=== PATIENT | female | born 1940 | race Caucasian/White ===

== ENCOUNTER → 2018-02-16 13:46 | Outpatient (CLI) | payer MEDICARE, SELFPAY ==
[2018-02-16 16:27] LABS: Absolute Lymphocyte Count 1.84 X10^3/ul (0.83-4.51); Absolute Neutrophil Count 3.1 X10^3/uL (2.0-7.7); Basophil# 0.04 X10^3/uL; Basophil% 0.7 % (0-1); Eosinophil# 0.29 X10^3/uL; Hematocrit 42.6 % (37-47); Hemoglobin 13.9 g/dl (12.0-15.0); Lymphocyte # 1.84 X10^3/ul (4.0); Lymphocyte % 31.5 % (19-41); Mean Corp Hgb Conc 32.6 g/gl (32-36); Mean Corpuscular Hgb 29.4 pg (27.0-32.0); Mean Corpuscular Volume 90.1 fL (81-99); Mean Platelet Vol. 11.1 fl (6.2-12.0); Monocyte# 0.55 X10^3/uL; Monocyte% 9.4 % (0-10); Neutrophil # 3.11 X10^3/uL (2.7-7.7); Neutrophil % 53.2 % (47-70); POSITIVE COUNT NO; POSITIVE DIFFERENTIAL NO; POSITIVE MORPHOLOGY NO; Platelet Count 182 K/mm3 (150-450); RBC Distribution Width CV 13.6 % (11.6-14.6); RBC Distribution Width SD 44.3 fl (35.1-43.9); Red Blood Count 4.73 M/mm3 (4.2-5.4); White Blood Count 5.8 K/mm3 (4.4-11.0)
[2018-02-16 16:47] LABS: ALB/GLOB Ratio 0.8 RATIO (0.9-2.4); AST(SGOT) 46 U/L (15-37); Alanine Aminotransfer ALT/SGPT 37 U/L (13-56); Albumin, Serum 3.6 g/dL (3.2-5.0); Alkaline Phosphatase 111 U/L (45-117); Anion Gap 9 (5-15); BUN 14 mg/dL (7-18); BUN/Creat Ratio 18.3 RATIO (10-20); Calcium,Total 9.1 mg/dL (8.5-10.1); Chloride 105 mmol/L (98-107); Creatinine, Serum 0.76 mg/dL (0.55-1.02); EST Glomerular Filtration Rate 78 mL/min (>60); Est Glom Filt Rate - Afr Amer 94 mL/min (>60); Globulin 4.8 g/dL (2.2-4.2); Glucose 123 mg/dL (74-106); Potassium 3.7 mmol/L (3.5-5.1); Protein, Total 8.4 g/dL (6.4-8.2); Sodium Level 142 mmol/L (136-145); Thyroid Stim Hormone (TSH) 2.74 uIU/mL (0.358-3.74)
== END ==
PROVIDERS: Family Provider Family Medicine Geriatric Medicine; PCP Family Medicine Geriatric Medicine; Visit Provider Family Medicine Geriatric Medicine
DX: I10 Essential (primary) hypertension (principal); E55.9 Vitamin D deficiency, unspecified
CPT/HCPCS: 36415; 80053; 82306; 84443; 85025

== ENCOUNTER → 2018-03-13 16:29 | Outpatient (CLI) | payer MEDICARE, SELFPAY ==
--- NOTE | 2018-03-13 16:33 | RAD_ITS ---
STUDY: X-RAY - PELVIS AND RIGHT HIP REASON FOR EXAM: Female, 78 years old. Right hip pain. TECHNIQUE: Radiological exam, hip, unilateral, with pelvis when performed; 2 or 3 views. COMPARISON: None. FINDINGS: Moderate amount of fecal material is seen in the colon. Normal visualized soft tissue structures. Normal bilateral iliac wings, sacroiliac joints and visualized sacrum. Normal bilateral superior and inferior pubic rami. There are degenerative changes of the pubic symphysis with articular narrowing and sclerosis. Normal bilateral ischial tuberosities. Normal visualized femoral head. There is osteoarthritic spur formation of the acetabular rim. There is moderate articular joint space narrowing of the hip. RAD/Hip 2-3 Views with Pelvis IMPRESSION: Degenerative changes of both hip joints worse on the right side. Electronically Signed: Avinash Brito MD at 15:06 EDT Tel [phone], Service support ,
--- NOTE | 2018-03-13 16:33 | RAD_ITS ---
STUDY: X-RAY - RIGHT KNEE REASON FOR EXAM: Female, 78 years old. Right knee pain. TECHNIQUE: 4 view(s) of the knee. COMPARISON: None. FINDINGS: Normal visualized distal femur. Normal visualized proximal tibia and fibula. Normal proximal tibiofibular articulation. Normal medial femorotibial compartment. Normal lateral femorotibial compartment. Normal patellofemoral articulation. There are atherosclerotic calcifications. RAD/Knee 4 or More Views IMPRESSION: No acute abnormality is seen. Electronically Signed: Avinash Brito MD at 15:13 EDT Tel [phone], Service support ,
== END ==
PROVIDERS: Family Provider Family Medicine Geriatric Medicine; PCP Family Medicine Geriatric Medicine; Visit Provider Family Medicine Geriatric Medicine
DX: M25.561 Pain in right knee (principal); M25.551 Pain in right hip
CPT/HCPCS: 73502; 73564

== ENCOUNTER → 2018-05-22 13:39 | Outpatient (CLI) | payer MEDICARE, MEDICAID, SELFPAY ==
--- NOTE | 2018-05-22 13:54 | RAD_ITS ---
STUDY: X-RAY - CERVICAL SPINE REASON FOR EXAM: Female, 78 years old. Chronic neck pain TECHNIQUE: 3 view(s) of the cervical spine were obtained. COMPARISON: None FINDINGS: Normal anterior atlantoaxial articulation. Normal odontoid process. Normal cervical lordosis. There is mild endplate spondylosis of C4-C6. Normal disc space heights There are bilateral hypertrophic degenerative facet changes throughout the mid and lower cervical region. The soft tissue structures are unremarkable. RAD/Cerv Spine 2 or 3 Views IMPRESSION: Cervical degenerative changes as detailed above. Electronically Signed: Man Shepherd MD at 21:18 EDT , Service support ,
== END ==
PROVIDERS: Family Provider Family Medicine Geriatric Medicine; PCP Family Medicine Geriatric Medicine; Visit Provider Family Medicine Geriatric Medicine
DX: M54.2 Cervicalgia (principal)
CPT/HCPCS: 72040

== ENCOUNTER → 2018-05-29 12:13 | Outpatient (CLI) | payer MEDICARE, MEDICAID, SELFPAY ==
--- NOTE | 2018-05-29 12:15 | CDU_ITS ---
Reason For Study: BRUIT Rt. Velocities/BP Lt. Velocities/BP Prox CCA 39/9 cm/sec. Prox CCA 26/6 cm/sec. Mid CCA 42/12 cm/sec. Mid CCA 40/12 cm/sec. Dist CCA 36/10 cm/sec. Dist CCA 41/13 cm/sec. Prox ICA 62/23 cm/sec. Prox ICA 74/24 cm/sec. Mid ICA 83/22 cm/sec. Mid ICA 72/27 cm/sec. Dist ICA 45/12 cm/sec. Dist ICA 57/21 cm/sec. Rt. ICA/CCA = 1.95. Lt. ICA/CCA = 1.87. Prox ECA 59/13 cm/sec. Prox ECA 78/13 cm/sec. Rt. Vert. 28/9 cm/sec. Lt. Vert. 30/11 cm/sec. Right Extracranial There is heterogeneous, smooth atherosclerotic plaque noted in the right common carotid artery. There is homogeneous, irregular atherosclerotic plaque noted in the right common carotid artery. There is heterogeneous, irregular atherosclerotic plaque noted in the right internal carotid artery. There is heterogeneous, irregular atherosclerotic plaque noted in the right external carotid artery. Antegrade flow is noted in the right vertebral artery. There is heterogeneous, irregular atherosclerotic plaque noted in the right bulb. Left Extracranial There is heterogeneous, smooth atherosclerotic plaque noted in the left common carotid artery. There is heterogeneous, irregular atherosclerotic plaque noted in the left common carotid artery. There is heterogeneous, irregular atherosclerotic plaque noted in the left internal carotid artery. There is heterogeneous, irregular atherosclerotic plaque noted in the left external carotid artery. Antegrade flow is noted in the left vertebral artery. There is heterogeneous, irregular atherosclerotic plaque noted in the left bulb. Procedure Carotid Duplex [id number]. Exam performed in department. Interpretation Summary Mild (<50%) stenosis right extracranial internal carotid. Mild (<50%) stenosis left extracranial internal carotid. Flow within the vertebral arteries is antegrade bilaterally. Ordering Physician: Juan Broussard Referring Physician: Juan Broussard Chi Performed By: Beatriz Bailey, NICOLAS, RVT
== END ==
PROVIDERS: Family Provider Family Medicine Geriatric Medicine; PCP Family Medicine Geriatric Medicine; Visit Provider Family Medicine Geriatric Medicine
DX: R09.89 Other specified symptoms and signs involving the circulatory and respiratory systems (principal)
CPT/HCPCS: 93880

== ENCOUNTER 2018-06-07 17:03 | Inpatient (IN) | payer MEDICARE, MEDICAID, SELFPAY ==
[2018-06-07] VITALS (11 sets, daily range): BP systolic 155–179; BP diastolic 88–105; PULSE 65–82; RESP 15–18; TEMP 36.1–36.7; O2SAT 94–99; BMI 28.2; BMI 28.1
[2018-06-07 17:26] LABS: Bedside Glucose 174 mg/dL (70-110)
--- NOTE | 2018-06-07 17:30 | EKG12_ITS ---
Test Reason : NEURO Blood Pressure : / mmHG Vent. Rate : 076 BPM Atrial Rate : 076 BPM P-R Int : 190 ms QRS Dur : 074 ms QT Int : 422 ms P-R-T Axes : 052 -27 031 degrees QTc Int : 474 ms Normal sinus rhythm Leftward axis Inferior WI, age undetermined, cannot be excluded Confirmed by DUC NERI, YVROSE ([id number]), editorial specialist BOBBY IBARRA ([id number]) on 06/12/2018 1:51:17 PM Referred By: MODESTA Confirmed By:YVROSE XAVIER MD
--- NOTE | 2018-06-07 17:30 | CT_ITS ---
STUDY: CT BRAIN WITHOUT CONTRAST REASON FOR EXAM: Female, 78 years old. Slurred speech, right-sided weakness RADIATION DOSAGE (If Supplied By Facility): CTDIvol = ( 60.81 ) mGy, DLP = ( 1067.08 ) mGycm TECHNIQUE: Transaxial CT imaging of the brain was performed without administration of intravenous contrast material. Individualized dose optimization techniques were used for this CT. COMPARISON: Previous study of 10/25/2017 FINDINGS: Normal soft tissue structures. Normal calvarium. There is mild cerebral atrophy with widening of the extra-axial spaces and ventricular dilatation. There are areas of decreased attenuation within the white matter tracts of the supratentorial brain, consistent with microvascular disease changes. There is an old lacunar infarct of the right thalamus.. There are bilateral punctate basal ganglia calcifications which are usually idiopathic in an elderly individual. Normal brainstem. Normal cerebellum. There is no intracranial hemorrhage. There are no findings of an acute ischemic infarction. Normal visualized paranasal sinuses. CT/Brain/Head without Contrast IMPRESSION: Chronic involutional changes of the brain. Old lacunar infarct of the right thalamus. There is no significant change from the previous study. Electronically Signed: Man Shepherd MD at 18:20 EDT , Service support ,
--- NOTE | 2018-06-07 17:35 | ED.VISSUMM ---
- ER Visit Summary Date of Service: 06/07/18 Chief Complaint: Right arm and leg weakness with slightly more slurred speech History of Present Illness: The patient is a 78 F prior history of large right-sided stroke affecting both the right arm and right leg and speech approximately last October. Patient states she was doing well in her normal state of health and this morning has increased weakness in her right arm and leg and daughter thinks her speech may be slightly worse. She denies any visual change. She has had a headache most of yesterday. Currently is on Plavix and aspirin. Denies any falls or head trauma. Patient states she lives alone. Other than the headache she had no new or different neurological symptoms yesterday. From her prior stroke she has had chronic speech difficulty, right arm and right leg weakness but she rehabbed and they were doing much better. She states they are worse today. Her last known well time was around 11 PM last night. Physical Examination: Well appearing older female. Comes in by her daughter. Vital signs are stable afebrile. Blood pressure 139/96. She does not look septic or toxic. H EENT exam given round reactive light. No facial droop. Mildly slurred speech but easily understood. Neck nontender. Lungs clear to auscultation bilaterally. Heart regular rhythm rate about 80. Abdomen is soft and nontender. Normal bowel sounds no peritoneal signs. Left upper and left lower extremities are unremarkable neurovascular intact with 5 out of 5 motor strength and normal sensation. Normal range of motion. Her right upper extremity is about 3 out of 5 motor strength. Her right leg is about a 3 out of 5 motor strength. Normal sensation. She has a drift in both the right upper and right lower extremity. And decreased dexterity. Neurologically she is awake and alert. Follows commands. She has slurred speech. Weakness in the both right upper and right lower extremity. And decreased fine motor movements. Her NIH score is a 7. She has had a prior stroke and some of this is from the prior stroke. Test Results: Chest x-ray showed chronic changes. CT of the brain without contrast showed no acute process. Prior CVA. No acute bleed. No acute CVA. Both were read by the radiologist reviewed by me. EKG sinus rhythm rate is 76 no acute abnormality. White count of 10. H&H 1443. Electrolytes unremarkable glucose was elevated 185. Normal gap. PT PTT INR unremarkable. Troponin normal. Emergency Department Course and Treatment: Stroke evaluation. She is not in the TPA window. She will be admitted for further evaluation and further workup. Treatment Plan: Repeat exam the patient is doing well at 1830. No change and no worsening of her symptoms. We went over all her test results with her and her daughter. She will be admitted to the hospitalist for further evaluation. Disposition: Admission Impression: Recurrent and worsening right upper and lower extremity weakness History of a large prior right sided stroke Hyperglycemia This note was generated with [employer] dictation software. It may contain incorrect words, spelling, and punctuation that were not noted in review of the chart prior to signing ED Disposition - Plan for ED Patient: Chief Complaint: Neuro S/Sx Referrals: Juan Broussard Chi, MD [Primary Care Provider] -
--- NOTE | 2018-06-07 17:39 | ED.DCSUM_ITS ---
- ER Visit Summary Date of Service: 06/07/18 Chief Complaint: Right arm and leg weakness with slightly more slurred speech History of Present Illness: The patient is a 78 F prior history of large right- sided stroke affecting both the right arm and right leg and speech approximately last October. Patient states she was doing well in her normal state of health and this morning has increased weakness in her right arm and leg and daughter thinks her speech may be slightly worse. She denies any visual change. She has had a headache most of yesterday. Currently is on Plavix and aspirin. Denies any falls or head trauma. Patient states she lives alone. Other than the headache she had no new or different neurological symptoms yesterday. From her prior stroke she has had chronic speech difficulty , right arm and right leg weakness but she rehabbed and they were doing much better. She states they are worse today. Her last known well time was around 11 PM last night. Physical Examination: Well appearing older female. Comes in by her daughter. Vital signs are stable afebrile. Blood pressure 139/96. She does not look septic or toxic. H EENT exam given round reactive light. No facial droop. Mildly slurred speech but easily understood. Neck nontender. Lungs clear to auscultation bilaterally. Heart regular rhythm rate about 80. Abdomen is soft and nontender. Normal bowel sounds no peritoneal signs. Left upper and left lower extremities are unremarkable neurovascular intact with 5 out of 5 motor strength and normal sensation. Normal range of motion. Her right upper extremity is about 3 out of 5 motor strength. Her right leg is about a 3 out of 5 motor strength. Normal sensation. She has a drift in both the right upper and right lower extremity. And decreased dexterity. Neurologically she is awake and alert. Follows commands. She has slurred speech. Weakness in the both right upper and right lower extremity. And decreased fine motor movements. Her NIH score is a 7. She has had a prior stroke and some of this is from the prior stroke. Test Results: Chest x-ray showed chronic changes. CT of the brain without contrast showed no acute process. Prior CVA. No acute bleed. No acute CVA. Both were read by the radiologist reviewed by me. EKG sinus rhythm rate is 76 no acute abnormality. White count of 10. H&H 1443. Electrolytes unremarkable glucose was elevated 185. Normal gap. PT PTT INR unremarkable. Troponin normal. Emergency Department Course and Treatment: Stroke evaluation. She is not in the TPA window. She will be admitted for further evaluation and further workup. Treatment Plan: Repeat exam the patient is doing well at 1830. No change and no worsening of her symptoms. We went over all her test results with her and her daughter. She will be admitted to the hospitalist for further evaluation. Disposition: Admission Impression: Recurrent and worsening right upper and lower extremity weakness History of a large prior right sided stroke Hyperglycemia This note was generated with [employer] dictation software. It may contain incorrect words, spelling, and punctuation that were not noted in review of the chart prior to signing ED Disposition - Plan for ED Patient: Chief Complaint: Neuro S/Sx Referrals: Juan Broussard Chi, MD [Primary Care Provider] -
[2018-06-07 17:43] LABS: Absolute Lymphocyte Count 2.25 X10^3/ul (0.83-4.51); Basophil# 0.02 X10^3/uL; Basophil% 0.2 % (0-1); Eosinophil# 0.13 X10^3/uL; Eosinophils% 1.3 % (0-5); Hematocrit 43.5 % (37-47); Hemoglobin 14.1 g/dl (12.0-15.0); Lymphocyte # 2.25 X10^3/ul (4.0); Lymphocyte % 22.2 % (19-41); Mean Corp Hgb Conc 32.4 g/gl (32-36); Mean Corpuscular Hgb 29.5 pg (27.0-32.0); Mean Platelet Vol. 10.6 fl (6.2-12.0); Monocyte# 0.74 X10^3/uL; Monocyte% 7.3 % (0-10); Neutrophil # 6.98 X10^3/uL (2.7-7.7); Neutrophil % 68.8 % (47-70); Platelet Count 149 K/mm3 (150-450); RBC Distribution Width CV 14.7 % (11.6-14.6); RBC Distribution Width SD 48.6 fl (35.1-43.9); Red Blood Count 4.78 M/mm3 (4.2-5.4); White Blood Count 10.1 K/mm3 (4.4-11.0)
[2018-06-07] MEDS: 0.9% Normal Saline 1,000 ML 999 ML IV (17:48)
[2018-06-07 17:53] LABS: POSITIVE COUNT NO; POSITIVE DIFFERENTIAL NO; POSITIVE MORPHOLOGY NO
[2018-06-07 17:59] LABS: Anion Gap 6 (5-15); BUN 12 mg/dL (7-18); BUN/Creat Ratio 17.1 RATIO (10-20); Calcium,Total 8.7 mg/dL (8.5-10.1); Chloride 106 mmol/L (98-107); EST Glomerular Filtration Rate 86 mL/min (>60); Est Glom Filt Rate - Afr Amer 104 mL/min (>60); Estimated Creatinine Clearance 40.68 ml/min; Glucose 185 mg/dL (74-106); Potassium 3.5 mmol/L (3.5-5.1); Sodium Level 141 mmol/L (136-145)
[2018-06-07 18:00] LABS: Prothrombin Time (Protime)PT. 12.9 SECONDS (11.7-14.9)
--- NOTE | 2018-06-07 18:00 | RAD_ITS ---
STUDY: X-RAY CHEST REASON FOR EXAM: Female, 78 years old. Right-sided weakness TECHNIQUE: Single AP portable view of the chest. COMPARISON: Previous study of 10/25/2017 FINDINGS: labor relations or personnel negotiator leads are present. The lungs are clear and expanded. There is no demonstrated pleural abnormality. There is borderline cardiomegaly. Normal mediastinum and анна. Normal visualized pulmonary arteries. There are calcified plaques of the aortic arch. Normal visualized thoracic spine. Normal visualized ribs, clavicles, and shoulders. There is no demonstrated abnormality of the visualized soft tissue structures of the upper abdomen. RAD/Chest 1 View IMPRESSION: Borderline heart size. Calcified plaques of the aortic arch. No acute cardiopulmonary disease process is seen. Chest findings are similar to the previous study. Electronically Signed: Man Shepherd MD at 18:22 EDT , Service support ,
[2018-06-07 18:01] LABS: Partial Thromboplast Time 33.2 Seconds (24.1-36.2)
--- NOTE | 2018-06-07 18:34 | PCM.HP.STD ---
Problem List (1) Acute CVA (cerebrovascular accident) Status: Acute (2) Hyperglycemia Status: Acute (3) Thrombocytopenia Status: Acute (4) History of CVA (cerebrovascular accident) Status: Chronic (5) HTN (hypertension) Status: Chronic Qualifiers: Hypertension type: essential hypertension Qualified Code(s): I10 - Essential (primary) hypertension (6) HLD (hyperlipidemia) Status: Chronic Qualifiers: Hyperlipidemia type: unspecified Qualified Code(s): E78.5 - Hyperlipidemia, unspecified (7) GERD (gastroesophageal reflux disease) Status: Chronic Qualifiers: Esophagitis presence: esophagitis presence not specified Qualified Code(s): K21.9 - Gastro-esophageal reflux disease without esophagitis History of Present Illness Date of Admission: 06/07/18 Chief Complaint: R hemiplegia, aphasia The patient is a 78 y/o F w/ PMHx: HTN, HLD, GERD, Recent CVA 10/2017 who presents to the [facility] ED on 06/07/18 with history of onset slurred speech per Daughter report with last known normal 06/06/18 2300 in addition to patient subjective change in her R sided hemiplegia, worsened per her report from her baseline with onset at 7 AM upon awakening. She notes that sensation remains intact. Normally at home she is able to take care of herself and uses a walker despite the mild right-sided hemiplegia. Daughter notes the mildly change speech is most notable when she gets anxious and was more concerned with these changes otherwise if she is calm she appears at baseline she notes. NIH 7 but difficult assessment as prior notable CVA. Patient does state that she recently had acute on chronic lumbar back pain and was evaluated by her primary care physician and administered 3 separate medications possibly including a steroid but family is unsure and we are awaiting confirmation once family returns home. In the ED work-up noted afebrile, heart rate 82, BP 166/92, respiratory rate 16, 96% on room air, CBC with WBC 10.1, hemoglobin 14.1, platelet 149 without left shift, unremarkable coags, BMP remarkable for glucose 185, troponin less than 0.015, chest x-ray with chronic changes including mild cardiomegaly otherwise no acute findings, CT brain with chronic involutional changes, old lacunar infarct of the right thalamic, no significant change from prior study. Of note recent 7/23/18 Carotid US w/ mild less than 50% stenosis right extracranial internal carotid, mild less than 50% stenosis left extracranial internal carotid, flow within the vertebral arteries antegrade bilaterally. In the ED patient administered normal saline. Past Medical History Past Medical History (Chronic Problems): Chronic Problems History of CVA (cerebrovascular accident) (Chronic) HTN (hypertension) (Chronic) HLD (hyperlipidemia) (Chronic) GERD (gastroesophageal reflux disease) (Chronic) Allergies latex Allergy (Verified 06/07/18 17:03) Swelling Home Medications: Ambulatory Orders Medication Instructions Recorded Aspirin E.C. 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 Tobacco Use: Non-smoker Alcohol: None Drugs: None - *Family History Maternal History Items: - - Notable maternal family history of diabetes. Paternal History Items: - - Notable paternal family history of heart disease, [place], diabetes. Review of Systems Constitutional: Reports: Fatigue. Denies: Chills, Fever, Weight Change HEENT: Denies: Head Aches, Sinus Congestion, Sinus Drainage Cardiovascular: Denies: Chest Pain, Palpitations Respiratory: Denies: Cough, Shortness of breath at rest, Sputum production Gastrointestinal: Denies: Abdominal Pain, Nausea, Vomiting Genitourinary: Denies: Dysuria Musculoskeletal: Reports: Back Pain. Denies: Joint Pain, Joint Tenderness Skin: Denies: Rash, Wounds Neurological: Reports: Balance problems, Slurred speech, Focal weakness. Denies: Numbness, Tingling Psychiatric: Denies: Anxiety, Depression, Homicidal Ideations, Suicidal Ideations Hematologic/ Lymphatic: Reports: Easy Bruising, Easy Bleeding VTE Information - Inpt Only VTE Present on Admission: No VTE Mechan Device Prophylaxis: SCD's VTE Pharm Prophylaxis ordered?: Yes Patient Problems: Active and Suspected Problems Acute CVA (cerebrovascular accident) (Acute) Hyperglycemia (Acute) Thrombocytopenia (Acute) Subjective: Seated upright in the ED bed, no acute distress, notes similar since initial presentation with stable NIH score. Objective: Physical Examination: General: awake, alert, oriented x 3 and cooperative, seated upright in the ED bed in no apparent distress. Skin: normal color, turgor, no icterus, cyanosis. HEENT: AT/NC, EOMI, PERRLA, mildly dry MM, no carotid bruits or JVD noted. Lungs: CTA bilaterally, moderate effort, mild decrease BL bases, no rales, ronchi or wheezing. Heart: Regular rate and rhythm; no gallop, rub audible. Abdomen: soft, overweight, NTTP, ND, normal BS, no HSM. Extremities: no cyanosis, clubbing, or edema, minimal hair growth BL LE. Neurological: patient awake, alert, oriented x 3; cognitive function intact; pupils equally reactive to light and accomodation; cranial nerves II-XII grossly normal, moving all 4 extremities; however, worsened R hemiplegia from prior baseline 2-3/5, sensation intact, FTN, HTN impaired R sided, upgoing toe R side, strength accordingly severely globally decreased, speech currently appears baseline but family notes when pressed worsened aphasia noted. Psychiatric: affect appears normal, no acute evidence of depressive or anxiety feelings. - Physical Exam Vital Signs Temp Pulse Resp BP Pulse Ox 97.0 F L 70 16 165/98 H 96 06/07/18 17:04 06/07/18 18:19 06/07/18 18:19 06/07/18 18:19 06/07/18 18:19 Oxygen Delivery Method Room Air Weight: 164 lb 7.437 oz Body Mass Index (BMI) 28.2 Finger Stick Blood Glucose 174 Laboratory Tests Past 24 Hrs 06/07/18 06/07/18 06/07/18 15:20 15:20 15:20 WBC 10.1 RBC 4.78 Hgb 14.1 Hct 43.5 MCV 91.0 MCH 29.5 MCHC 32.4 RDW 14.7 H RDW Differential 48.6 H Plt Count 149 L MPV 10.6 Immature Gran % (Auto) 0.200 Neut % (Auto) 68.8 Lymph % (Auto) 22.2 Cowley % (Auto) 7.3 Eos % (Auto) 1.3 Baso % (Auto) 0.2 Absolute Neuts (auto) 7.0 Absolute Lymphs (auto) 2.25 Total Counted Not Reportable PT 12.9 INR 1.0 APTT 33.2 Sodium 141 Potassium 3.5 Chloride 106 Carbon Dioxide 29.0 Anion Gap 6 BUN 12 Creatinine 0.70 Estim Creat Clear Calc 40.68 Est GFR (MDRD) Af Amer 104 Est GFR (MDRD) Non-Af 86 BUN/Creatinine Ratio 17.1 Glucose 185 H Calcium 8.7 Troponin I < 0.015 POC Glucose 06/07/18 17:22 POC Glucose 174 H Assessment/Plan All Active Problems Acute CVA (cerebrovascular accident) (Acute) Hyperglycemia (Acute) Thrombocytopenia (Acute) The patient is a 78 y/o F w/ PMHx: HTN, HLD, GERD, Recent CVA 10/2017 who presents to the [facility] ED on 06/07/18 with history of onset slurred speech per Daughter report with last known normal 06/06/18 2300 in addition to patient subjective change in her R sided hemiplegia, worsened per her report from her baseline. NIH 7 but difficult assessment as prior notable CVA. (1) Slurred Speech and Worsened R Hemiplegia concerning for Acute CVA w/ Recent 10/2017 R Thalamic CVA (Deficits RUE and RLE hemiplegia, aphasia): In the ED work-up included CBC with WBC 10.1, hemoglobin 14.1, platelet 149 without left shift, unremarkable coags, BMP remarkable for glucose 185, troponin less than 0.015, chest x-ray with chronic changes including mild cardiomegaly otherwise no acute findings, CT brain with chronic involutional changes, old lacunar infarct of the right thalamic, no significant change from prior study. Of note recent 05/29/18 Carotid US w/ mild less than 50% stenosis right extracranial internal carotid, mild less than 50% stenosis left extracranial internal carotid, flow within the vertebral arteries antegrade bilaterally. Will admit to PCU, will obtain MRI Brain, MRA Head, defer neck given recent carotid US, no recent ECHO noted in [employer] thus will obtain, PT/OT/Speech/Nutrition evaluation per protocol. Will consult Neurology for evaluation. Will allow permissive HTN, maintain on asa and plavix dual therapy pending Neurology evaluation for consideration of transition of agent, consider HM upon discharge, continue statin w/ AM FLP, fall precautions. Mag, TSH pending. (2) Hyperglycemia, Concerning for New Onset Diabetes Mellitus type II although recent possible steroid intake: Admission Glucose 185, HgbA1c pending, in interim ADA diet, accu checks w/ ISS, nutrition consulted for education and teaching. If notable elevation of BS, add levemir low dose BID. (3) Thrombocytopenia: Admission Plt 149, maintain on asa, plavix, trend CBC. (4) Hypertension: Permissive, not on regimen, if remains above goal after appropriate timeline, will initiate regimen. PRN labetalol. (5) Hyperlipidemia: Change to high dose statin, FLP in AM. (6) GERD: Famotidine. (7) DVT Prophylaxis: SCDs, lovenox. (8) CODE status: Discussed CODE status at length including difference between FULL code, DNR-CCA and DNR-CC status. Following discussions about the differences in these status, requested DNR-CCA, no intubation status. She has HCPOA Daughter and Living will in place. Advanced Care Planning Face to Face Time: 17 minutes. Code Visit Inpatient E&M: 93873 Init Hosp L3 Procedures: 95041 Advncd Care Plan 30 Min
--- NOTE | 2018-06-07 18:51 | HP.PCM_ITS ---
Problem List (1) Acute CVA (cerebrovascular accident) Status: Acute (2) Hyperglycemia Status: Acute (3) Thrombocytopenia Status: Acute (4) History of CVA (cerebrovascular accident) Status: Chronic (5) HTN (hypertension) Status: Chronic Qualifiers: Hypertension type: essential hypertension Qualified Code(s): I10 - Essential (primary) hypertension (6) HLD (hyperlipidemia) Status: Chronic Qualifiers: Hyperlipidemia type: unspecified Qualified Code(s): E78.5 - Hyperlipidemia , unspecified (7) GERD (gastroesophageal reflux disease) Status: Chronic Qualifiers: Esophagitis presence: esophagitis presence not specified Qualified Code(s) : K21.9 - Gastro-esophageal reflux disease without esophagitis History of Present Illness Date of Admission: 06/07/18 Chief Complaint: R hemiplegia, aphasia The patient is a 78 y/o F w/ PMHx: HTN, HLD, GERD, Recent CVA 10/2017 who presents to the [facility] ED on 06/07/18 with history of onset slurred speech per Daughter report with last known normal 06/06/18 2300 in addition to patient subjective change in her R sided hemiplegia, worsened per her report from her baseline with onset at 7 AM upon awakening. She notes that sensation remains intact. Normally at home she is able to take care of herself and uses a walker despite the mild right-sided hemiplegia. Daughter notes the mildly change speech is most notable when she gets anxious and was more concerned with these changes otherwise if she is calm she appears at baseline she notes. NIH 7 but difficult assessment as prior notable CVA. Patient does state that she recently had acute on chronic lumbar back pain and was evaluated by her primary care physician and administered 3 separate medications possibly including a steroid but family is unsure and we are awaiting confirmation once family returns home. In the ED work-up noted afebrile, heart rate 82, BP 166/92, respiratory rate 16, 96% on room air, CBC with WBC 10.1, hemoglobin 14.1, platelet 149 without left shift, unremarkable coags, BMP remarkable for glucose 185, troponin less than 0.015, chest x-ray with chronic changes including mild cardiomegaly otherwise no acute findings, CT brain with chronic involutional changes, old lacunar infarct of the right thalamic, no significant change from prior study. Of note recent 7/23/18 Carotid US w/ mild less than 50% stenosis right extracranial internal carotid, mild less than 50% stenosis left extracranial internal carotid, flow within the vertebral arteries antegrade bilaterally. In the ED patient administered normal saline. Past Medical History Past Medical History (Chronic Problems): Chronic Problems History of CVA (cerebrovascular accident) (Chronic) HTN (hypertension) (Chronic) HLD (hyperlipidemia) (Chronic) GERD (gastroesophageal reflux disease) (Chronic) Allergies latex Allergy (Verified 06/07/18 17:03) Swelling Home Medications: Ambulatory Orders Medication Instructions Recorded Aspirin E.C. [Ecotrin] 81 mg PO DAILY@0800 06/07/18 Atorvastatin Calcium 40 mg PO QHS 06/07/18 Clopidogrel Bisulfate [Plavix] 75 mg PO DAILY 06/07/18 Ibuprofen 400 mg PO PRN PRN 06/07/18 Lactose-Reduced Food [Ensure High 237 ml PO DAILY 06/07/18 Protein] Mirtazapine [Remeron] 15 mg PO QHS 06/07/18 Omeprazole Magnesium [Prilosec Otc] 20 mg PO DAILY 06/07/18 Super B Complex 1 tab PO DAILY 06/07/18 Surgical History: appendectomy, cholecystectomy, hysterectomy, - - x 2 Psychiatric History: No pertinent psych hx HEEL SEAT FITTER History: No pertinent HEEL SEAT FITTER history Lives: Alone Smoking Status: Former smoker - Smoked 2 pack per day since she was 15 years old , quit 10/2017 after her CVA. Tobacco Use: Non-smoker Alcohol: None Drugs: None - *Family History Maternal History Items: - - Notable maternal family history of diabetes. Paternal History Items: - - Notable paternal family history of heart disease, [place], diabetes. Review of Systems Constitutional: Reports: Fatigue. Denies: Chills, Fever, Weight Change HEENT: Denies: Head Aches, Sinus Congestion, Sinus Drainage Cardiovascular: Denies: Chest Pain, Palpitations Respiratory: Denies: Cough, Shortness of breath at rest, Sputum production Gastrointestinal: Denies: Abdominal Pain, Nausea, Vomiting Genitourinary: Denies: Dysuria Musculoskeletal: Reports: Back Pain. Denies: Joint Pain, Joint Tenderness Skin: Denies: Rash, Wounds Neurological: Reports: Balance problems, Slurred speech, Focal weakness. Denies : Numbness, Tingling Psychiatric: Denies: Anxiety, Depression, Homicidal Ideations, Suicidal Ideations Hematologic/ Lymphatic: Reports: Easy Bruising, Easy Bleeding VTE Information - Inpt Only VTE Present on Admission: No VTE Mechan Device Prophylaxis: SCD's VTE Pharm Prophylaxis ordered?: Yes Patient Problems: Active and Suspected Problems Acute CVA (cerebrovascular accident) (Acute) Hyperglycemia (Acute) Thrombocytopenia (Acute) Subjective: Seated upright in the ED bed, no acute distress, notes similar since initial presentation with stable NIH score. Objective: Physical Examination: General: awake, alert, oriented x 3 and cooperative, seated upright in the ED bed in no apparent distress. Skin: normal color, turgor, no icterus, cyanosis. HEENT: AT/NC, EOMI, PERRLA, mildly dry MM, no carotid bruits or JVD noted. Lungs: CTA bilaterally, moderate effort, mild decrease BL bases, no rales, ronchi or wheezing. Heart: Regular rate and rhythm; no gallop, rub audible. Abdomen: soft, overweight, NTTP, ND, normal BS, no HSM. Extremities: no cyanosis, clubbing, or edema, minimal hair growth BL LE. Neurological: patient awake, alert, oriented x 3; cognitive function intact; pupils equally reactive to light and accomodation; cranial nerves II-XII grossly normal, moving all 4 extremities; however, worsened R hemiplegia from prior baseline 2-3/5, sensation intact, FTN, HTN impaired R sided, upgoing toe R side, strength accordingly severely globally decreased, speech currently appears baseline but family notes when pressed worsened aphasia noted. Psychiatric: affect appears normal, no acute evidence of depressive or anxiety feelings. - Physical Exam Vital Signs Temp Pulse Resp BP Pulse Ox 97.0 F L 70 16 165/98 H 96 06/07/18 17:04 06/07/18 18:19 06/07/18 18:19 06/07/18 18:19 06/07/18 18:19 Oxygen Delivery Method Room Air Weight: 164 lb 7.437 oz Body Mass Index (BMI) 28.2 Finger Stick Blood Glucose 174 Laboratory Tests Past 24 Hrs 06/07/18 06/07/18 06/07/18 15:20 15:20 15:20 WBC 10.1 RBC 4.78 Hgb 14.1 Hct 43.5 MCV 91.0 MCH 29.5 MCHC 32.4 RDW 14.7 H RDW Differential 48.6 H Plt Count 149 L MPV 10.6 Immature Gran % (Auto) 0.200 Neut % (Auto) 68.8 Lymph % (Auto) 22.2 [place] % (Auto) 7.3 Eos % (Auto) 1.3 Baso % (Auto) 0.2 Absolute Neuts (auto) 7.0 Absolute Lymphs (auto) 2.25 Total Counted Not Reportable PT 12.9 INR 1.0 APTT 33.2 Sodium 141 Potassium 3.5 Chloride 106 Carbon Dioxide 29.0 Anion Gap 6 BUN 12 Creatinine 0.70 Estim Creat Clear Calc 40.68 Est GFR (MDRD) Af Amer 104 Est GFR (MDRD) Non-Af 86 BUN/Creatinine Ratio 17.1 Glucose 185 H Calcium 8.7 Troponin I < 0.015 POC Glucose 06/07/18 17:22 POC Glucose 174 H Assessment/Plan All Active Problems Acute CVA (cerebrovascular accident) (Acute) Hyperglycemia (Acute) Thrombocytopenia (Acute) The patient is a 78 y/o F w/ PMHx: HTN, HLD, GERD, Recent CVA 10/2017 who presents to the [facility] ED on 06/07/18 with history of onset slurred speech per Daughter report with last known normal 06/06/18 2300 in addition to patient subjective change in her R sided hemiplegia, worsened per her report from her baseline. NIH 7 but difficult assessment as prior notable CVA. (1) Slurred Speech and Worsened R Hemiplegia concerning for Acute CVA w/ Recent 10/2017 R Thalamic CVA (Deficits RUE and RLE hemiplegia, aphasia): In the ED work-up included CBC with WBC 10.1, hemoglobin 14.1, platelet 149 without left shift, unremarkable coags, BMP remarkable for glucose 185, troponin less than 0.015, chest x-ray with chronic changes including mild cardiomegaly otherwise no acute findings, CT brain with chronic involutional changes, old lacunar infarct of the right thalamic, no significant change from prior study. Of note recent 05/29/18 Carotid US w/ mild less than 50% stenosis right extracranial internal carotid, mild less than 50% stenosis left extracranial internal carotid , flow within the vertebral arteries antegrade bilaterally. Will admit to PCU, will obtain MRI Brain, MRA Head, defer neck given recent carotid US, no recent ECHO noted in Blurr thus will obtain, PT/OT/Speech/Nutrition evaluation per protocol. Will consult Neurology for evaluation. Will allow permissive HTN, maintain on asa and plavix dual therapy pending Neurology evaluation for consideration of transition of agent, consider HM upon discharge, continue statin w/ AM FLP, fall precautions. Mag, TSH pending. (2) Hyperglycemia, Concerning for New Onset Diabetes Mellitus type II although recent possible steroid intake: Admission Glucose 185, HgbA1c pending, in interim ADA diet, accu checks w/ ISS, nutrition consulted for education and teaching. If notable elevation of BS, add levemir low dose BID. (3) Thrombocytopenia: Admission Plt 149, maintain on asa, plavix, trend CBC. (4) Hypertension: Permissive, not on regimen, if remains above goal after appropriate timeline, will initiate regimen. PRN labetalol. (5) Hyperlipidemia: Change to high dose statin, FLP in AM. (6) GERD: Famotidine. (7) DVT Prophylaxis: SCDs, lovenox. (8) CODE status: Discussed CODE status at length including difference between FULL code, DNR-CCA and DNR-CC status. Following discussions about the differences in these status, requested DNR-CCA, no intubation status. She has HCPOA Daughter and Living will in place. Advanced Care Planning Face to Face Time: 17 minutes. Code Visit Inpatient E&M: 02304 Init Hosp L3 Procedures: 59055 Advncd Care Plan 30 Min
--- NOTE | 2018-06-07 19:43 | ECHOD_ITS ---
Reason For Study: TIA/STROKE Procedure This was a 2D Doppler, Color Flow transthoracic echocardiogram. Exam performed portable in patient room. Left Ventricle Normal LV size. Mild concentric left ventricular hypertrophy. Left ventricular systolic function is normal. The estimated ejection fraction is 60 %. Transmitral diastolic flow velocities suggest mild (stage 1) diastolic dysfunction (reversed pattern). No regional wall motion abnormalities noted. Right Ventricle Normal RV size. Normal systolic function. Atria Normal left atrium. Normal right atrium. Bubble contrast study negative for right to left interatrial shunt. Mitral Valve Normal mitral valve. Tricuspid Valve Normal tricuspid valve. Mild (1+) tricuspid valve insufficiency. Pulmonary artery systolic pressure is 24 mmHg. Aortic Valve Trisinus/trileaflet aortic valve. Mild focal aortic valve calcification. Mild (1+) eccentric aortic valve insufficiency. Pulmonic Valve Normal pulmonic valve. Great Vessels Normal aortic root. The pulmonary artery is normal size. Normal inferior vena cava. Pericardium/Pleural No pericardial effusion. Medication Performed a rapid injection of agitated mix of 9 cc saline and 1cc air to assess for atrial septal defect. MMode/2D Measurements & Calculations LVIDd: 3.4 cm IVSd: 1.4 cm LA dimension: 3.8 cm LVIDs: 2.6 cm LVPWd: 1.2 cm FS: 24.8 % LAV(MOD-bp): 50.4 ml LVAd ap4: 30.8 cm2 SV(MOD-sp4): 53.7 ml LAV(MOD-bp) Indexed: 28.0 ml/m2 EDV(MOD-sp4): 95.6 ml LAV(MOD-sp2): 58.4 ml EDV(sp4-el): 99.7 ml LAV(MOD-sp4): 44.7 ml LVAs ap4: 17.9 cm2 ESV(MOD-sp4): 41.9 ml ESV(sp4-el): 43.2 ml EF(MOD-sp4): 56.1 % EF(sp4-el): 56.7 % SV(sp4-el): 56.5 ml LA A4 area: 17.3 cm2 RA A4 area: 16.7 cm2 Time Measurements MV dec time: 0.30 sec Doppler Measurements & Calculations MV E max abimael: 69.0 cm/sec Lat Peak E' Abimael: 6.8 cm/sec Med Peak E' Abimael: 5.0 cm/sec MV A max abimael: 99.8 cm/sec E/E' lat: 10.2 E/E' med: 13.7 MV E/A: 0.69 Ao V2 max: 173.5 cm/sec AI max abimael: 409.2 cm/sec LV V1 max: 90.0 cm/sec Ao max P.0 mmHg AI max P.1 mmHg LV V1 max P.2 mmHg AI dec slope: 180.6 cm/sec2 AI P1/2t: 663.6 msec PA V2 max: 88.6 cm/sec TR max abimael: 230.7 cm/sec TR max P.3 mmHg Interpretation Summary Normal LV size. Mild concentric left ventricular hypertrophy. Left ventricular systolic function is normal. The estimated ejection fraction is 60 %. Transmitral diastolic flow velocities suggest mild (stage 1) diastolic dysfunction (reversed pattern). Mild (1+) tricuspid valve insufficiency. Ordering Physician: Delisa Rivera Referring Physician: Juan Broussard Chi Performed By: Ebony Tripp RDCS
[2018-06-07 20:10] LABS: Bacteria 0 SEEN /hpf (None Seen); Mucous, Urine 0 SEEN /hpf (<or=2+); Red Blood Cells-Urine 0 SEEN /hpf (0-5)
[2018-06-07 20:18] LABS: Color, Urine Yellow (Yellow); Glucose, Dipstick Normal (Normal); Ketone-Dipstick Negative (Negative); Leukocyte Esterase-Dipstick 100 /ul (Negative); Nitrite-Dipstick Negative (Negative); Occult Blood-Urine Negative /ul (Negative); Protein-Dipstick Negative (Negative); Urine Bilirubin Dipstick Negative (Negative); Urine Clarity Clear (Clear); Urine Urobilinogen Normal (Normal)
[2018-06-07 20:26] LABS: Squamous Epithelial Cells - UA 0-5 SEEN /hpf (5-10); White Blood Cells 5-10 SEEN /hpf (0-5)
[2018-06-07 20:37] LABS: Thyroid Stim Hormone (TSH) 1.98 uIU/mL (0.358-3.74)
[2018-06-07 21:01] LABS: Hemoglobin A1c 6.8 % (4.2-6.3)
[2018-06-07] MEDS: 0.9% Normal Saline 1,000 ML 100 ML IV (21:16)
[2018-06-07] MEDS: Atorvastatin Calcium 80 MG Tablet PO (21:16)
[2018-06-07] MEDS: Mirtazapine 15 MG Tablet PO (21:16)
[2018-06-07] MEDS: Enoxaparin 40 MG/0.4 ML Syringe SC (21:16)
[2018-06-07 21:40] LABS: Bedside Glucose 96 mg/dL (70-110)
[2018-06-08] VITALS (13 sets, daily range): BP systolic 139–194; BP diastolic 74–103; PULSE 61–80; RESP 14–16; TEMP 36.5–36.9; O2SAT 94–97; BMI 28.1
[2018-06-08 06:15] LABS: Hematocrit 41.2 % (37-47); Hemoglobin 13.4 g/dl (12.0-15.0); Mean Corp Hgb Conc 32.5 g/gl (32-36); Mean Corpuscular Hgb 29.7 pg (27.0-32.0); Mean Corpuscular Volume 91.4 fL (81-99); Mean Platelet Vol. 10.8 fl (6.2-12.0); Platelet Count 135 K/mm3 (150-450); RBC Distribution Width CV 14.7 % (11.6-14.6); RBC Distribution Width SD 47.9 fl (35.1-43.9); Red Blood Count 4.51 M/mm3 (4.2-5.4); White Blood Count 7.5 K/mm3 (4.4-11.0)
[2018-06-08 06:34] LABS: Anion Gap 6 (5-15); BUN 9 mg/dL (7-18); BUN/Creat Ratio 15.1 RATIO (10-20); Calcium,Total 8.2 mg/dL (8.5-10.1); Chloride 111 mmol/L (98-107); Cholesterol 161 mg/dL (200); EST Glomerular Filtration Rate 104 mL/min (>60); Est Glom Filt Rate - Afr Amer 125 mL/min (>60); Estimated Creatinine Clearance 40.68 ml/min; Glucose 114 mg/dL (74-106); High Density Lipoprotein 51 mg/dL; Potassium 3.9 mmol/L (3.5-5.1); Sodium Level 145 mmol/L (136-145); Triglycerides 118 mg/dL; Very Low Density Lipoprotein 24 mg/dL (5-40)
[2018-06-08 06:37] LABS: Scan Indicated on CBC? Y/N NO
[2018-06-08 06:55] LABS: Bedside Glucose 101 mg/dL (70-110)
[2018-06-08] MEDS: 0.9% Normal Saline 1,000 ML 100 ML IV ×2 (07:21→21:34)
[2018-06-08] MEDS: Aspirin E.C. 81 MG Tablet PO (08:07)
[2018-06-08] MEDS: Famotidine 20 MG Tablet PO (10:07)
[2018-06-08] MEDS: Enoxaparin 40 MG/0.4 ML Syringe SC (10:07)
[2018-06-08] MEDS: Clopidogrel Bisulfate 75 MG Tablet PO (10:07)
--- NOTE | 2018-06-08 11:01 | PN_ITS ---
Patient Problems: Active and Suspected Problems Acute CVA (cerebrovascular accident) (Acute) Hyperglycemia (Acute) Thrombocytopenia (Acute) Subjective: Patient is a 78-year-old lady with recent CVA in October 2017 who presented with slurred speech of 2 days duration in addition to weakness involving the right side imaging studies demonstrated Probably late subacute ischemic infarcts in both middle cerebellar peduncles, left greater than right. Admitted to monitored bed for subsequent management Objective: GENERAL: cooperative but with slurred speech HEENT: Clear conjunctiva, moist oral mucosa NECK; supple, normal thyroid, no distended JVD. CHEST: Clear to auscultation bilaterally, HEART: Regular S1 S2, no audible murmurs ABDOMEN: soft, non-tender, normoactive bowel sounds, RECTAL: deferred EXTREMITIES: No edema, no clubbing, no cyanosis. CUSTOMER FIELD REPRESENTATIVE: Awake; right-sided weakness. SKIN: No Rash Vitals/I&O's: Vital Signs Temp Pulse Resp BP Pulse Ox 97.7 F L 69 15 151/74 H 94 06/08/18 09:59 06/08/18 09:59 06/08/18 09:59 06/08/18 09:59 06/08/18 10:57 Oxygen Delivery Method Room Air Weight: 74.48 kg Body Mass Index (BMI) 28.1 Intake and Output for Last 24 Hours 06/06/18 06/07/18 06/08/18 23:59 23:59 23:59 Intake Total 1208 / 1208 Balance 1208 / 1208 Laboratory Results 06/07/18 19:37: Urine Color Yellow, Urine Clarity Clear, Urine pH 7.0, Ur Specific [place] 1.010, Urine Protein Negative, Urine Glucose (UA) Normal, Urine Ketones Negative, Urine Occult Blood Negative, Urine Nitrite Negative, Urine Bilirubin Negative, Urine Urobilinogen Normal, Ur Leukocyte Esterase 100 H , Urine RBC 0 SEEN, Urine WBC 5-10 SEEN, Ur Squamous Epith Cells 0-5 SEEN, Urine Bacteria 0 SEEN, Urine Mucus 0 SEEN 06/07/18 21:13: POC Glucose 96 06/08/18 05:45: WBC 7.5, RBC 4.51, Hgb 13.4, Hct 41.2, MCV 91.4, MCH 29.7, MCHC 32.5, RDW 14.7 H, RDW Differential 47.9 H, Plt Count 135 L, MPV 10.8 06/08/18 05:45: Sodium 145, Potassium 3.9, Chloride 111 H, Carbon Dioxide 28.0, Anion Gap 6, BUN 9, Creatinine 0.60, Estim Creat Clear Calc 40.68, Est GFR (MDRD ) Af Amer 125, Est GFR (MDRD) Non-Af 104, BUN/Creatinine Ratio 15.1, Glucose 114 H, Calcium 8.2 L, Triglycerides 118, Cholesterol 161, LDL Cholesterol 86, VLDL Cholesterol 24, HDL Cholesterol 51 06/08/18 06:43: POC Glucose 101 Current Medications Acetaminophen (Tylenol) 650 mg PO Q4H PRN PRN PRN Reason: Headache/Temp>99F Acetaminophen (Tylenol) 650 mg RECTAL Q4H PRN PRN PRN Reason: Headache/Temp>99F Acetaminophen (Tylenol Liquid) 650 mg NG Q4H PRN PRN PRN Reason: Headache/Temp>99F Al Hydroxide/Mg Hydroxide (Mylanta Ii) 30 ml PO Q6H PRN PRN PRN Reason: Gastric burning Aspirin (Ecotrin) 81 mg PO DAILY@0800 [facility] Last Admin: 06/08/18 08:07 Dose: 81 mg Atorvastatin Calcium (Lipitor) 80 mg PO QHS [facility] Last Admin: 06/07/18 21:16 Dose: 80 mg Clopidogrel Bisulfate (Plavix) 75 mg PO DAILY [facility] Last Admin: 06/08/18 10:07 Dose: 75 mg Enoxaparin Sodium (Lovenox) 40 mg SC DAILY@1000 [facility] Last Admin: 06/08/18 10:07 Dose: 40 mg Famotidine (Pepcid) 20 mg PO DAILY [facility] Last Admin: 06/08/18 10:07 Dose: 20 mg Sodium Chloride () 1,000 mls @ 100 mls/hr IV .Q10H [facility] Last Admin: 06/08/18 07:21 Dose: 100 mls/hr Sodium Chloride () 250 mls @ 15 mls/hr IV .[id number] PRN PRN Reason: SALINE FLUSH Insulin Human Lispro (Humalog Kwikpen (Bkc)) 0 unit SC ACHS [facility] PRN Reason: Protocol Last Admin: 06/08/18 07:50 Dose: Not Given Labetalol HCl (Trandate) 10 mg IV Q10M PRN PRN Reason: MAINTAIN SBP GOALS Stop: 06/08/18 19:44 Magnesium Hydroxide (Milk Of Magnesia) 30 ml PO DAILY PRN PRN Reason: Constipation Mirtazapine (Remeron) 15 mg PO QHS [facility] Last Admin: 06/07/18 21:16 Dose: 15 mg Nutritional Formula (Lactose Free) (Ensure Clear) 240 ml PO DAILYCM [facility] Last Admin: 06/08/18 08:09 Dose: 240 ml Ondansetron HCl (Zofran) 4 mg IV Q8H PRN PRN PRN Reason: NAUSEA Promethazine HCl (Phenergan) 12.5 mg IV Q6H PRN PRN PRN Reason: NAUSEA/VOMITING Sodium Chloride () 5 - 30 ml IV UD PRN PRN Reason: SALINE FLUSH Medical Necessity - Tobacco Use Smoking Status: Former smoker Tobacco Use: Non-smoker Assessment/Plan All Active Problems Acute CVA (cerebrovascular accident) (Acute) Hyperglycemia (Acute) Thrombocytopenia (Acute) Patient is a 78-year-old lady with recent CVA in October 2017 who presented with slurred speech of 2 days duration in addition to weakness involving the right side imaging studies demonstrated Probably late subacute ischemic infarcts in both middle cerebellar peduncles, left greater than right. Admitted to monitored bed for subsequent management 1. Subacute ischemic infarct involving bilateral middle cerebellar peduncles: Patient admitted to monitored bed managed with dual antiplatelet therapy with consultation placed to neurology patient was seen by Dr. Mar his notes and recommendations reviewed 2. Hypertension patient blood pressure on admission was within the recommended range 3. Dyslipidemia-patient is on statin therapy, continued at home dose 4. Onset diabetes mellitus type 2 patient presented with hyperglycemia hemoglobin A1c was 6.8 did obtain diabetic as well as dietary consultation 5. Basilar stenosis 6. 3x2 mm Left cavernous ICA aneurysm 7. DVT prophylaxis SC Lovenox Clinical Impression(s) from Imaging Studies Brain CT 06/07/18 17:30 IMPRESSION: Chronic involutional changes of the brain. Old lacunar infarct of the right thalamus. There is no significant change from the previous study. Electronically Signed: Man Shepherd MD at 18:20 EDT , Service support , Chest X-Ray 06/07/18 18:00 IMPRESSION: Borderline heart size. Calcified plaques of the aortic arch. No acute cardiopulmonary disease process is seen. Chest findings are similar to the previous study. Electronically Signed: Man Shepherd MD at 18:22 EDT , Service support , Brain MRI 06/08/18 19:43 IMPRESSION: 1. Probably late subacute ischemic infarcts in both middle cerebellar peduncles, left greater than right. The right middle cerebellar infarct is visible on image 12 as hypodense lacunar infarct on CT head scan dated 06/07/2018. Unfortunately, ADC map was not provided. I am uncertain that these are not T2 shine through of old infarcts. These were not present on previous MRI of the brain dated 06/22/2014. 2. 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 This is most likely related to the 50% stenosis of the basilar artery in front of the belly of the remy. 3. Chronic white matter ischemic changes in both cerebral hemispheres have increased in size and number when compared to 06/22/2014. Electronically Signed: Camilo García MD at 10:13 EDT , Service support , ADDENDUM: 06/08/18 1036 Head MRA 06/08/18 19:43 IMPRESSION: 1. Approximately 50% smooth stenosis in the anterior juxtasellar segment of the right cavernous internal carotid artery. 2. Approximately 3 x 2 mm saccular aneurysm in the anterior juxtasellar segment of the left cavernous internal carotid artery. The conical aneurysmal sac is directed laterally and caudally. 3. No other intracranial aneurysm and no other intracranial vaso-occlusive disease. Electronically Signed: Camilo García MD at 9:55 EDT , Service support , ADDENDUM: 06/08/18 1022 Active Medications Acetaminophen (Tylenol) 650 mg PO Q4H PRN PRN PRN Reason: Headache/Temp>99F Acetaminophen (Tylenol) 650 mg RECTAL Q4H PRN PRN PRN Reason: Headache/Temp>99F Acetaminophen (Tylenol Liquid) 650 mg NG Q4H PRN PRN PRN Reason: Headache/Temp>99F Al Hydroxide/Mg Hydroxide (Mylanta Ii) 30 ml PO Q6H PRN PRN PRN Reason: Gastric burning Aspirin (Ecotrin) 81 mg PO DAILY@0800 [facility] Last Admin: 06/08/18 08:07 Dose: 81 mg Atorvastatin Calcium (Lipitor) 80 mg PO QHS [facility] Last Admin: 06/07/18 21:16 Dose: 80 mg Clopidogrel Bisulfate (Plavix) 75 mg PO DAILY [facility] Last Admin: 06/08/18 10:07 Dose: 75 mg Enoxaparin Sodium (Lovenox) 40 mg SC DAILY@1000 [facility] Last Admin: 06/08/18 10:07 Dose: 40 mg Famotidine (Pepcid) 20 mg PO DAILY [facility] Last Admin: 06/08/18 10:07 Dose: 20 mg Sodium Chloride () 1,000 mls @ 100 mls/hr IV .Q10H [facility] Last Admin: 06/08/18 07:21 Dose: 100 mls/hr Sodium Chloride () 250 mls @ 15 mls/hr IV .[id number] PRN PRN Reason: SALINE FLUSH Insulin Human Lispro (Humalog Kwikpen (Bkc)) 0 unit SC [facility] PRN Reason: Protocol Last Admin: 06/08/18 11:28 Dose: Not Given Labetalol HCl (Trandate) 10 mg IV Q10M PRN PRN Reason: MAINTAIN SBP GOALS Stop: 06/08/18 19:44 Magnesium Hydroxide (Milk Of Magnesia) 30 ml PO DAILY PRN PRN Reason: Constipation Mirtazapine (Remeron) 15 mg PO QHS [facility] Last Admin: 06/07/18 21:16 Dose: 15 mg Ondansetron HCl (Zofran) 4 mg IV Q8H PRN PRN PRN Reason: NAUSEA Promethazine HCl (Phenergan) 12.5 mg IV Q6H PRN PRN PRN Reason: NAUSEA/VOMITING Sodium Chloride () 5 - 30 ml IV UD PRN PRN Reason: SALINE FLUSH Code Visit Inpatient E&M: 57302 [facility] Hosp L3
[2018-06-08 11:15] LABS: Bedside Glucose 125 mg/dL (70-110)
--- NOTE | 2018-06-08 12:00 | CASEMGMT ---
Face to Face with patient for initial transition planning/care coordination assessment. CASI CHAUDHRY introduced self and role at [facility], pt voices understanding and consents to assessment at this time. Pt is sitting up in bed in no distress at this time. Pt is A/O x4 at this time and answers all questions appropriately at this time. Care providers, pharmacy, and demographics verified. See attached link. Pt voices no further concerns/needs at this time. Advised pt to ask for CM if any further questions/concerns/needs arise, voices understanding. CM to follow any further discharge planning/needs. Referral to Willie GAUTAM for passport, voices understanding. [place]AN[place] CASI CHAUDHRY
--- NOTE | 2018-06-08 13:21 | PCM.CONS.GEN ---
Problem List (1) Acute CVA (cerebrovascular accident) Status: Acute (2) History of CVA (cerebrovascular accident) Status: Chronic Reason for Consult Date of Consultation: 06/08/18 Reason for Consultation: stroke History of Present Illness: The patient is a 78 year old CF with PMH HTN, HLD, H/O stoke in October 2017 with residual right sided weakness admitted with worsening right sided weakness and slurred speech. Per patient about 2 days ago she started having worsening right sided weakness, balance issues and some slurred speech. On admission NIHSS was 7, patient was not a tpa candidate as was out of window period, per patient she had stroke in October 2017, treated at [place], no records available, residual right sided weakness, per patient she lives alone, ambulates with a walker, needs assistance for her ADLs, denies any frequent falls, and does not drive. 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 At present patient complaints of mild JARVIS, denies any facial droop, speech disturbances or sensory loss. Per patient she used to smoke 2 PPD prior to her stroke in October 2017. She is on ASA/Plavix at home and on Lipitor 40 mg PO q hs. [] Past Medical History Past Medical History (Chronic Problems): Chronic Problems History of CVA (cerebrovascular accident) (Chronic) HTN (hypertension) (Chronic) HLD (hyperlipidemia) (Chronic) GERD (gastroesophageal reflux disease) (Chronic) Allergies latex Allergy (Verified 06/07/18 17:03) Swelling Home Medications: Ambulatory Orders Medication Instructions Recorded Aspirin E.C. 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 Paternal History Items: - - Notable paternal family history of heart disease, [place], diabetes. Review of Systems Constitutional: Reports: - - complete ROS negative except as documented in HPI Patient Problems: Active and Suspected Problems Acute CVA (cerebrovascular accident) (Acute) Hyperglycemia (Acute) Thrombocytopenia (Acute) - Physical Exam General: Alert HEENT: Normocephalic Neck: Supple Lungs: Normal air movement, No rhonchi Cardiovascular: Normal S1, Normal S2 Abdomen: Bowel Sounds Present Extremities: No cyanosis Musculoskeletal: No Tenderness to Palpation of Joints or Extremities Neurological: - - consious, alert, CN 2-12 grossly intact, power 5/5 left UE/LE, right UE -4/5 and right LE +4/5, no sensory loss, no cerebellar signs, Reflexes + B/L B/S/T/K/A, gait deferred, NIHSS 2 at present, mRS 3 at baseline Psych/Mental Status: Normal Affect Vital Signs Temp Pulse Resp BP Pulse Ox 97.7 F L 64 15 151/74 H 94 06/08/18 09:59 06/08/18 11:50 06/08/18 09:59 06/08/18 09:59 06/08/18 10:57 Oxygen Delivery Method Room Air Weight: 74.48 kg Body Mass Index (BMI) 28.1 Intake and Output for Last 24 Hours 06/06/18 06/07/18 06/08/18 23:59 23:59 23:59 Intake Total 1208 / 1208 Balance 1208 / 1208 Laboratory Tests Past 24 Hrs 06/07/18 06/08/18 06/08/18 19:37 05:45 05:45 WBC 7.5 RBC 4.51 Hgb 13.4 Hct 41.2 MCV 91.4 MCH 29.7 MCHC 32.5 RDW 14.7 H RDW Differential 47.9 H Plt Count 135 L MPV 10.8 Sodium 145 Potassium 3.9 Chloride 111 H Carbon Dioxide 28.0 Anion Gap 6 BUN 9 Creatinine 0.60 Estim Creat Clear Calc 40.68 Est GFR (MDRD) Af Amer 125 Est GFR (MDRD) Non-Af 104 BUN/Creatinine Ratio 15.1 Glucose 114 H Calcium 8.2 L Triglycerides 118 Cholesterol 161 LDL Cholesterol 86 VLDL Cholesterol 24 HDL Cholesterol 51 Urine Color Yellow Urine Clarity Clear Urine pH 7.0 Ur Specific [place] 1.010 Urine Protein Negative Urine Glucose (UA) Normal Urine Ketones Negative Urine Occult Blood Negative Urine Nitrite Negative Urine Bilirubin Negative Urine Urobilinogen Normal Ur Leukocyte Esterase 100 H Urine RBC 0 SEEN Urine WBC 5-10 SEEN Ur Squamous Epith Cells 0-5 SEEN Urine Bacteria 0 SEEN Urine Mucus 0 SEEN POC Glucose 06/08/18 06/08/18 06/07/18 11:11 06:43 21:13 POC Glucose 125 H 101 96 Assessment/Plan All Active Problems Acute CVA (cerebrovascular accident) (Acute) Hyperglycemia (Acute) Thrombocytopenia (Acute) The patient is a 78 year old CF with PMH HTN, HLD, H/O stoke in October 2017 with residual right sided weakness admitted with worsening right sided weakness and slurred speech. Per patient about 2 days ago she started having worsening right sided weakness, balance issues and some slurred speech. On admission NIHSS was 7, patient was not a tpa candidate as was out of window period, per patient she had stroke in October 2017, treated at [place], no records available, residual right sided weakness, per patient she lives alone, ambulates with a walker, needs assistance for her ADLs, denies any frequent falls, and does not drive. 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 At present patient complaints of mild JARVIS, denies any facial droop, speech disturbances or sensory loss. Per patient she used to smoke 2 PPD prior to her stroke in October 2017. She is on ASA/Plavix at home and on Lipitor 40 mg PO q hs. Impression B/L MCP subacte to chronic infarct Basilar stenosis 3x2 mm Left cavernous ICA aneurysm Plan -On ASA/Plavix, continue the same for 3 months, then can switch to single AP -On Lipitor 80 mg PO q hs -MRI brain and MRA head reviewed -Recommend CTA head/neck -Recommend TTE -LDL-86, Yav3z-1.8% -Neurosurgery consult for aneurysm -Avoid hypotension -PT/OT and ST -Fall precautions -GI/DVT prophylaxis -Follow up with Neurology as outpatient in 2-3 weeks -Please call with questions if any -Thank you for allowing us to participate in patient's care and management I spent 60 minutes taking history, doing physical examination, reviewing medical records, coordinating care and counseling the patient. Code Visit Inpatient E&M: 06634 Init Hosp L3
--- NOTE | 2018-06-08 13:33 | CON.PCM_ITS ---
Problem List (1) Acute CVA (cerebrovascular accident) Status: Acute (2) History of CVA (cerebrovascular accident) Status: Chronic Reason for Consult Date of Consultation: 06/08/18 Reason for Consultation: stroke History of Present Illness: The patient is a 78 year old CF with PMH HTN, HLD, H/O stoke in October 2017 with residual right sided weakness admitted with worsening right sided weakness and slurred speech. Per patient about 2 days ago she started having worsening right sided weakness, balance issues and some slurred speech. On admission NIHSS was 7, patient was not a tpa candidate as was out of window period, per patient she had stroke in October 2017, treated at [place], no records available, residual right sided weakness, per patient she lives alone, ambulates with a walker, needs assistance for her ADLs, denies any frequent falls, and does not drive. 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 At present patient complaints of mild JARVIS, denies any facial droop, speech disturbances or sensory loss. Per patient she used to smoke 2 PPD prior to her stroke in October 2017. She is on ASA/Plavix at home and on Lipitor 40 mg PO q hs. [] Past Medical History Past Medical History (Chronic Problems): Chronic Problems History of CVA (cerebrovascular accident) (Chronic) HTN (hypertension) (Chronic) HLD (hyperlipidemia) (Chronic) GERD (gastroesophageal reflux disease) (Chronic) Allergies latex Allergy (Verified 06/07/18 17:03) Swelling Home Medications: Ambulatory Orders Medication Instructions Recorded Aspirin E.C. 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 Paternal History Items: - - Notable paternal family history of heart disease, [place], diabetes. Review of Systems Constitutional: Reports: - - complete ROS negative except as documented in HPI Patient Problems: Active and Suspected Problems Acute CVA (cerebrovascular accident) (Acute) Hyperglycemia (Acute) Thrombocytopenia (Acute) - Physical Exam General: Alert HEENT: Normocephalic Neck: Supple Lungs: Normal air movement, No rhonchi Cardiovascular: Normal S1, Normal S2 Abdomen: Bowel Sounds Present Extremities: No cyanosis Musculoskeletal: No Tenderness to Palpation of Joints or Extremities Neurological: - - consious, alert, CN 2-12 grossly intact, power 5/5 left UE/LE , right UE -4/5 and right LE +4/5, no sensory loss, no cerebellar signs, Reflexes + B/L B/S/T/K/A, gait deferred, NIHSS 2 at present, mRS 3 at baseline Psych/Mental Status: Normal Affect Vital Signs Temp Pulse Resp BP Pulse Ox 97.7 F L 64 15 151/74 H 94 06/08/18 09:59 06/08/18 11:50 06/08/18 09:59 06/08/18 09:59 06/08/18 10:57 Oxygen Delivery Method Room Air Weight: 74.48 kg Body Mass Index (BMI) 28.1 Intake and Output for Last 24 Hours 06/06/18 06/07/18 06/08/18 23:59 23:59 23:59 Intake Total 1208 / 1208 Balance 1208 / 1208 Laboratory Tests Past 24 Hrs 06/07/18 06/08/18 06/08/18 19:37 05:45 05:45 WBC 7.5 RBC 4.51 Hgb 13.4 Hct 41.2 MCV 91.4 MCH 29.7 MCHC 32.5 RDW 14.7 H RDW Differential 47.9 H Plt Count 135 L MPV 10.8 Sodium 145 Potassium 3.9 Chloride 111 H Carbon Dioxide 28.0 Anion Gap 6 BUN 9 Creatinine 0.60 Estim Creat Clear Calc 40.68 Est GFR (MDRD) Af Amer 125 Est GFR (MDRD) Non-Af 104 BUN/Creatinine Ratio 15.1 Glucose 114 H Calcium 8.2 L Triglycerides 118 Cholesterol 161 LDL Cholesterol 86 VLDL Cholesterol 24 HDL Cholesterol 51 Urine Color Yellow Urine Clarity Clear Urine pH 7.0 Ur Specific [place] 1.010 Urine Protein Negative Urine Glucose (UA) Normal Urine Ketones Negative Urine Occult Blood Negative Urine Nitrite Negative Urine Bilirubin Negative Urine Urobilinogen Normal Ur Leukocyte Esterase 100 H Urine RBC 0 SEEN Urine WBC 5-10 SEEN Ur Squamous Epith Cells 0-5 SEEN Urine Bacteria 0 SEEN Urine Mucus 0 SEEN POC Glucose 06/08/18 06/08/18 06/07/18 11:11 06:43 21:13 POC Glucose 125 H 101 96 Assessment/Plan All Active Problems Acute CVA (cerebrovascular accident) (Acute) Hyperglycemia (Acute) Thrombocytopenia (Acute) The patient is a 78 year old CF with PMH HTN, HLD, H/O stoke in October 2017 with residual right sided weakness admitted with worsening right sided weakness and slurred speech. Per patient about 2 days ago she started having worsening right sided weakness, balance issues and some slurred speech. On admission NIHSS was 7, patient was not a tpa candidate as was out of window period, per patient she had stroke in October 2017, treated at [place], no records available, residual right sided weakness, per patient she lives alone, ambulates with a walker, needs assistance for her ADLs, denies any frequent falls, and does not drive. 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 At present patient complaints of mild JARVIS, denies any facial droop, speech disturbances or sensory loss. Per patient she used to smoke 2 PPD prior to her stroke in October 2017. She is on ASA/Plavix at home and on Lipitor 40 mg PO q hs. Impression B/L MCP subacte to chronic infarct Basilar stenosis 3x2 mm Left cavernous ICA aneurysm Plan -On ASA/Plavix, continue the same for 3 months, then can switch to single AP -On Lipitor 80 mg PO q hs -MRI brain and MRA head reviewed -Recommend CTA head/neck -Recommend TTE -LDL-86, Scb9a-4.8% -Neurosurgery consult for aneurysm -Avoid hypotension -PT/OT and ST -Fall precautions -GI/DVT prophylaxis -Follow up with Neurology as outpatient in 2-3 weeks -Please call with questions if any -Thank you for allowing us to participate in patient's care and management I spent 60 minutes taking history, doing physical examination, reviewing medical records, coordinating care and counseling the patient. Code Visit Inpatient E&M: 78628 Init Hosp L3
--- NOTE | 2018-06-08 14:46 | CT_ITS ---
STUDY: CTA OF THE BRAIN REASON FOR EXAM: Female, 78 years old. Slurred speech, acute cerebrovascular accident. RADIATION DOSAGE (If Supplied By Facility): CTDIvol = ( 29.49 ) mGy, DLP = ( 1373.43 ) mGycm TECHNIQUE: CT angiography was performed with a multi-detector CT scanner. Data acquisition was obtained from the skull base through the vertex following intravenous administration of ml of . MIP images were reconstructed from the axial data set. Post-processing of the angiographic images was performed, with multiplanar reformation and 3D reconstruction. Individualized dose optimization techniques were used for this CT. COMPARISON: CTA neck same date. Noncontrast CT head same date. MRI brain same date. MR angiogram of the head same date. CT head 06/07/2018. CT head and 09/12/2015 and MRI brain 06/22/2014. FINDINGS: On noncontrast CT head there are involutional features of the brain including mild atrophy and moderate chronic microvascular ischemic disease of the white matter without specific features of acute territorial infarct and without bleed. Intracranial vertebral arteries: Left dominant, widely patent. Basilar artery: No hematemesis significant stenosis. Major cerebellopontine divisions appear normal. Posterior cerebral arteries: Normal. Ophthalmic arteries: Normal. Transcranial internal carotid arteries: Moderate severe dense calcified plaque of the wall of each vessel, contributing to mild stenosis. High-grade stenosis is not suspected. Anterior and posterior communicating arteries. Normal. Anterior cerebral arteries: Normal. Middle cerebral arteries: Normal. Dural venous sinuses: Normal. CT/CTA Head W/WO Contrast IMPRESSION: Unremarkable intracranial vasculature. No evidence of hemodynamically significant stenosis or occluded segment. Electronically Signed: Marco Howell, at 17:41 EDT Tel , Service support ,
--- NOTE | 2018-06-08 14:46 | CT_ITS ---
STUDY: CT ANGIOGRAM OF THE NECK WITH CONTRAST. REASON FOR EXAM: Female, 78 years old. Acute cerebrovascular accident. Slurred speech over 2 days. Prior CVA October 2017. RADIATION DOSAGE (If Supplied By Facility): CTDIvol = ( 29.49 ) mGy, DLP = ( 1373.43 ) mGycm. Thank you Individualized dose optimization techniques were used for this CT.? TECHNIQUE: Isovue-370 100 mL IV contrast. Thin slice helical CT endocrine was performed from the aortic arch to the cranial vertex with arterial phase timed contrast bolus, with volume rendered, coronal and sagittal MIP, 3-D flip and rotate reformatted images saved to the PACS archive. COMPARISON: MRI brain 2017, MR angiogram head 2017, CT brain 06/07/2018.. FINDINGS: Vertebral arteries: Left dominant, each widely patent to the basilar artery. Carotid arteries: Bilaterally mild plaque of the bulb. Moderate plaque of the proximal internal carotid arteries. Right ICA least dimension 3.3 mm, with diameter immediately distal 5.3 mm. Less than 50% stenosis. Left ICA least diameter 3.5 mm, diameter immediately distal 7 mm. 50-69% stenosis. Each internal carotid artery is widely patent thereafter into the skull base. Incidental note is made of a short segment focal dissection in the right carotid approximate 18 mm distal to the carotid bifurcation, the dissection flap present over a segment measuring less than 3 mm, and likely representing a focal dissection of atheroma rather than a true dissection of the wall. Nonaneurysmal ectasia of the aortic arch, proximal arch 3.7 cm. Distal arch 3.9 cm. Aberrant right subclavian artery emerging as the last vessel from the arch and traversing a retroesophageal course to the right. Multinodular thyroid gland, most prominent nodules on the right, the largest measuring about 1.2 cm. Ultrasound characterization is recommended to assess for any malignant features. Cervical soft tissues exhibit no acute process. The paranasal sinuses, mastoid air cells and middle ear cavities are clear. Normal jugular veins. CT/CTA Neck W/WO Contrast IMPRESSION: There is no evidence of vertebral artery stenosis or dissection. Borderline aneurysmal ectasia of the distal aortic arch, with aberrant right subclavian artery. Plaque of the carotid bifurcations bilaterally most prominent in the proximal internal carotid arteries with less than 50% stenosis on the right, and 50-69% stenosis on the left. There is a slender short segment dissection flap in the proximal to mid right ICA, likely representing focal dissection of atheroma rather than true dissection of the wall. There is no evidence of hemodynamically significant carotid stenosis. Multinodular thyroid gland. Ultrasound characterization is recommended to exclude malignant features. Electronically Signed: Marco Howell, at 17:37 EDT Tel , Service support ,
--- NOTE | 2018-06-08 15:00 | CASEMGMT ---
SW spoke w/Marianela Christopher at [facility], let her know pt is here. SW will continue to follow along with CM for any discharge needs. JORDAN Nichols, CLEANER [employer]ITURE
[2018-06-08 16:36] LABS: Bedside Glucose 104 mg/dL (70-110)
--- NOTE | 2018-06-08 19:43 | MRI_ITS ---
STUDY: MRA OF THE HEAD WITHOUT CONTRAST REASON FOR EXAM: Female, 78 years old. CVA. Increased right arm and leg weakness. Slurred speech. Symptoms improved. Prior stroke in 2016. TECHNIQUE: 3-D [id number] (TOF) imaging was performed with MIPs. The study was performed unenhanced. COMPARISON: None. FINDINGS: Normal bilateral petrous carotid arteries. Approximately 50% smooth stenosis in the anterior juxtasellar segment of the right cavernous internal carotid artery. Approximately 3 x 2 mm saccular aneurysm in the anterior juxtasellar segment of the left cavernous internal carotid artery. The aneurysmal sac is directed laterally and caudally. Normal right A1 segment of the anterior cerebral artery. Normal left A1 segment of the anterior cerebral artery. Normal intact anterior communicating artery (ACOM). Normal bilateral A2 segments of the anterior cerebral arteries. Normal right M1 and M2 segments of the middle cerebral arteries, with a normal M1 bifurcation. Normal left M1 and M2 segments of the middle cerebral arteries, with a normal M1 bifurcation. No visible right posterior communicating artery (PCOM). No visible left posterior communicating artery (PCOM). Normal bilateral vertebral arteries. Normal basilar artery with a normal basilar bifurcation. The visualized bilateral superior cerebellar (SCA) arteries are normal. Normal bilateral P1, P2 and visualized P3 segments of the posterior cerebral arteries. No other intracranial aneurysm. No other vaso-occlusive disease. There is no demonstrated abnormality of the visualized brain. MRI/MRA Head ONLY without Contrast IMPRESSION: 1. Approximately 50% smooth stenosis in the anterior juxtasellar segment of the right cavernous internal carotid artery. 2. Approximately 3 x 2 mm saccular aneurysm in the anterior juxtasellar segment of the left cavernous internal carotid artery. The conical aneurysmal sac is directed laterally and caudally. 3. No other intracranial aneurysm and no other intracranial vaso-occlusive disease. Electronically Signed: Camilo García MD at 9:55 EDT , Service support ,
--- NOTE | 2018-06-08 19:43 | MRI_ITS ---
STUDY: MRI BRAIN WITHOUT CONTRAST REASON FOR EXAM: Female, 78 years old. CVA yesterday. Increased right arm and leg weakness. Slurred speech. Symptoms improved. Prior stroke in 2016. TECHNIQUE: Standardized multiplanar fat and water weighted pulse sequences were obtained. COMPARISON: MRI brain with and without contrast 06/22/2014. CT head without contrast 06/07/2018. FINDINGS: Symmetrical restricted diffusion in both middle cerebellar peduncles are also hyperintense on T2 FLAIR sequence. These are probably subacute. Unfortunately ADC maps were not provided. There are old cystic infarcts in the left paramedian pontine tegmentum extending to the anterior surface of the belly of the remy. This is most likely secondary to the 50% stenosis involving the distal basilar artery in front of the upper belly of the remy. Normal size of the ventricles and extra-axial spaces for the patient's age. Multiple periventricular white matter T2 FLAIR hyperintensity foci are chronic white matter ischemic changes. Normal bilateral basal ganglia. Normal thalami. There is no extra-axial fluid accumulation. Normal flow voids within the major intracranial circulation suggesting patency by spin echo criteria. Normal sella turcica, pituitary gland, infundibular stalk, optic chiasm and hypothalamus. Normal tectal plate and pineal gland. Old elongated cystic infarct in the left central pontine tegmentum extending to the anterior surface of the belly of the remy. Abnormal T2 FLAIR hyperintensity foci in both middle cerebellar peduncles. Normal midbrain and medulla. Normal cerebellum. Normal basal cisterns. Normal bilateral temporal bones. Normal bilateral internal auditory canals. No demonstrated orbital abnormality, within the constraints of a routine brain study. Normal visualized paranasal sinuses. Normal calvarium and skull base. Normal visualized soft tissue structures. Normal visualized upper cervical spine. MRI/Brain without Contrast IMPRESSION: 1. Probably late subacute ischemic infarcts in both middle cerebellar peduncles, left greater than right. The right middle cerebellar infarct is visible on image 12 as hypodense lacunar infarct on CT head scan dated 06/07/2018. Unfortunately, ADC map was not provided. I am uncertain that these are not T2 shine through of old infarcts. These were not present on previous MRI of the brain dated 06/22/2014. 2. 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 This is most likely related to the 50% stenosis of the basilar artery in front of the belly of the remy. 3. Chronic white matter ischemic changes in both cerebral hemispheres have increased in size and number when compared to 06/22/2014. Electronically Signed: Camilo García MD at 10:13 EDT , Service support ,
--- NOTE | 2018-06-08 20:48 | PCM.DC.SUM ---
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 (50%) (4) Basal artery stenosis (50%) (5) Hyperglycemia w/ Elevated HgbA1c 6.8% consistent with New Onset Diabetes Mellitus type II (6) Thrombocytopenia, Unclear Etiology (7) Evidence Prior CVA (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 to the anterior surface of the belly of the remy) and 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 Mar Operations: None Procedures: 2-D Echocardiogram, EKG Summary of Care Provided: The patient is a 78 y/o F w/ PMHx: HTN, HLD, GERD, Recent CVA 10/2017 who presented to the [facility] ED on 06/07/18 with history of onset slurred speech per Daughter report with last known normal 06/06/18 2300 in addition to patient subjective change in her R sided hemiplegia, worsened per her report from her baseline with onset at 7 AM upon awakening. She notes that sensation remains intact. Normally at home she is able to take care of herself and uses a walker despite the mild right-sided hemiplegia. Daughter notes the mildly change speech is most notable when she gets anxious and was more concerned with these changes otherwise if she is calm she appears at baseline she notes. NIH 7 but difficult assessment as prior notable CVA. Patient does state that she recently had acute on chronic lumbar back pain and was evaluated by her primary care physician and administered 3 separate medications possibly including a steroid but family is unsure and we are awaiting confirmation once family returns home. In the ED work-up noted afebrile, heart rate 82, BP 166/92, respiratory rate 16, 96% on room air, CBC with WBC 10.1, hemoglobin 14.1, platelet 149 without left shift, unremarkable coags, BMP remarkable for glucose 185, troponin less than 0.015, chest x-ray with chronic changes including mild cardiomegaly otherwise no acute findings, CT brain with chronic involutional changes, old lacunar infarct of the right thalamic, no significant change from prior study. Of note recent 05/29/18 Carotid US w/ mild less than 50% stenosis right extracranial internal carotid, mild less than 50% stenosis left extracranial internal carotid, flow within the vertebral arteries antegrade bilaterally. The patient was admitted to the PCU, maintained on monitor, maintained on asa, plavix, statin w/ FLP, Mag and TSH assessed. 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 ECHO obtained w/ noted normal LV size, mild concentric LVH, LV systolic function normal, EF 60%, transmitral diastolic flow velocities suggestive of mild stage I diastolic dysfunction, mild TV insufficiency. HgbA1c resulted w/ 6.8% consistent with New Onset Diabetes Mellitus type II. Given MRA findings patient felt appropriate for tertiary care facility transition and transfer requested. Home Medications: Medications to take at Discharge Aspirin E.C. [Ecotrin] 81 mg PO DAILY@0800 06/07/18 Atorvastatin Calcium 40 mg PO QHS 06/07/18 Clopidogrel Bisulfate [Plavix] 75 mg PO DAILY 06/07/18 Ibuprofen 400 mg PO PRN PRN 06/07/18 Lactose-Reduced Food [Ensure High Protein] 237 ml PO DAILY 06/07/18 Mirtazapine [Remeron] 15 mg PO QHS 06/07/18 Omeprazole Magnesium [Prilosec Otc] 20 mg PO DAILY 06/07/18 Super B Complex 1 tab PO DAILY 06/07/18 Primary Care Physician: Juan Broussard Chi, MD [Primary Care Provider] - Disposition: Acute care Hospital Minutes spent on discharge:: 35 Patient Condition:: Stable Medical Necessity - Tobacco Use Smoking Status: Former smoker Tobacco Use: Non-smoker Meaningful Use Info Meaningful Use Diagnoses (Choose all that apply): Ischemic CVA - CVA Therapy Assessed for PT,OT and/or ST?: Yes - Ischemic Stroke Antithrombotic order at d/c?: Yes Dx of Atrial fib/flutter?: No Anticoagulant at discharge?: No Reason anticoagulant not ordered: Treatment not Indicated Statins at discharge?: Yes Primary Dx Acute Ischemic CVA?: Yes IV tPA ordered during stay?: Yes Reason IV t-PA not ordered: Treatment not Indicated Code Visit Inpatient E&M: 51537 Disch Hosp
[2018-06-08] MEDS: Mirtazapine 15 MG Tablet PO (21:34)
[2018-06-08] MEDS: Atorvastatin Calcium 80 MG Tablet PO (21:34)
[2018-06-08 21:51] LABS: Bedside Glucose 118 mg/dL (70-110)
[2018-06-09] VITALS: BP 132/89; PULSE 76; RESP 16; TEMP 36.8; O2SAT 94
[2018-06-09 00:29] VITALS: BP 132/89; PULSE 76; RESP 16; TEMP 36.8; O2SAT 94
--- NOTE | 2018-06-09 08:35 | CASEMGMT ---
SW left a message for Marianela Christopher, pt's Passport Engraver Lettering, letting her know pt went home yesterday. SW also called and spoke w/covering behavioral health case manager,Araceli, let her know pt went home yesterday. No further needs anticipated at this time. JORDAN Nichols, PROOFER [employer]
== END 2018-06-09 00:36 | disposition short-term general hospital (02) | DRG 65 ==
LOC: ED 18:23 → PCU 18:55
PROVIDERS: Admitting Provider Family Medicine; Emergency Provider Emergency Medicine; Family Provider Family Medicine Geriatric Medicine; PCP Family Medicine Geriatric Medicine; Visit Provider Internal Medicine
DX: I61.4 Nontraumatic intracerebral hemorrhage in cerebellum (principal); G81.91 Hemiplegia, unspecified affecting right dominant side; I69.151 Hemiplegia and hemiparesis following nontraumatic intracerebral hemorrhage affecting right dominant side; R47.81 Slurred speech; R40.2430 Glasgow coma scale score 3-8, unspecified time; I69.120 Aphasia following nontraumatic intracerebral hemorrhage; Z87.891 Personal history of nicotine dependence; I67.1 Cerebral aneurysm, nonruptured; I65.21 Occlusion and stenosis of right carotid artery; I65.1 Occlusion and stenosis of basilar artery; E11.65 Type 2 diabetes mellitus with hyperglycemia; D69.6 Thrombocytopenia, unspecified; I10 Essential (primary) hypertension; E78.5 Hyperlipidemia, unspecified; K21.9 Gastro-esophageal reflux disease without esophagitis; Z66 Do not resuscitate; Z79.02 Long term (current) use of antithrombotics/antiplatelets; Z79.82 Long term (current) use of aspirin; Z79.899 Other long term (current) drug therapy
CPT/HCPCS: 36415; 70450; 70496; 70498; 70544; 70551; 71045; 80048; 80061; 81001; 82962; 83036; 83735; 84443; 84484; 85025; 85027; 85610; 85730; 87086; 87088; 93005; 93306; 97161; 97165; 97802; 99283; 99406; J7030; Q9967; A4216

== ENCOUNTER 2018-06-16 19:01 | Inpatient (IN) | payer MEDICARE, MEDICAID, SELFPAY ==
[2018-06-16 19:05] VITALS: O2SAT 96
--- NOTE | 2018-06-16 19:05 | CPS ---
PT BROUGHT IS DEVICE FROM PREVIOUS FACILITY
[2018-06-16 19:09] VITALS: BP 143/92; PULSE 99; RESP 18; TEMP 36.3; O2SAT 95; BMI 28.3
--- NOTE | 2018-06-16 19:19 | NURSING ---
Patient aware she is fall risk and must ask for staff assist.
[2018-06-16 20:27] VITALS: BP 143/92; PULSE 99; RESP 18; TEMP 36.3; O2SAT 95
[2018-06-16 22:00] VITALS: RESP 15
[2018-06-16] MEDS: Atorvastatin Calcium 80 MG Tablet PO (22:12)
[2018-06-16] MEDS: Mirtazapine 15 MG Tablet PO (22:12)
[2018-06-16] MEDS: Senna/Docusate Sodium 1 Tablet 2 TABLET PO (22:12)
[2018-06-17] MEDS: Enoxaparin 40 MG/0.4 ML Syringe SC (06:17)
[2018-06-17 07:01] VITALS: O2SAT 99
[2018-06-17 07:06] VITALS: BP 133/78; PULSE 72; RESP 16; TEMP 36.5; O2SAT 95
[2018-06-17] MEDS: Senna/Docusate Sodium 1 Tablet 2 TABLET PO ×2 (08:30→20:46)
[2018-06-17] MEDS: Polyethylene Glycol 3350 17 GM PACKET PO (08:30)
[2018-06-17] MEDS: Pantoprazole Sodium 20 MG Tablet PO (08:30)
[2018-06-17] MEDS: Aspirin E.C. 81 MG Tablet PO (08:31)
[2018-06-17] MEDS: Clopidogrel Bisulfate 75 MG Tablet PO (08:31)
[2018-06-17 08:50] LABS: Hematocrit 34.5 % (37-47); Mean Corp Hgb Conc 31.9 g/gl (32-36); Mean Corpuscular Hgb 29.6 pg (27.0-32.0); Mean Platelet Vol. 11.3 fl (6.2-12.0); Platelet Count 190 K/mm3 (150-450); RBC Distribution Width CV 14.8 % (11.6-14.6); RBC Distribution Width SD 47.6 fl (35.1-43.9); Red Blood Count 3.71 M/mm3 (4.2-5.4); White Blood Count 6.7 K/mm3 (4.4-11.0)
[2018-06-17 08:52] LABS: Scan Indicated on CBC? Y/N NO
[2018-06-17 09:07] LABS: Anion Gap 12 (5-15); BUN 7 mg/dL (7-18); BUN/Creat Ratio 9.4 RATIO (10-20); Chloride 104 mmol/L (98-107); Creatinine, Serum 0.74 mg/dL (0.55-1.02); EST Glomerular Filtration Rate 80 mL/min (>60); Est Glom Filt Rate - Afr Amer 97 mL/min (>60); Estimated Creatinine Clearance 40.68 ml/min; Glucose 193 mg/dL (74-106); Potassium 3.7 mmol/L (3.5-5.1); Sodium Level 143 mmol/L (136-145)
[2018-06-17 11:11] VITALS: BMI 28.3
--- NOTE | 2018-06-17 16:20 | PCM.PROGNOTE ---
Subjective: Patient transferred from [facility] to Rehab unit last night. She was initially here at [facility] for new onset right sided weakness. She was found to have a Left ICA aneurysm and BL middle cerebellar peduncle strokes and an old pontine stroke and was transferred to [facility] for neurosurgery eval. During that stay she had a left ICA stent placed. She had a brief stay in the ICU after the surgery for hypotension, no intubation. After stabilization she was transferred here for rehab. She continues to have right upper and lower ext weakness. She has mild right facial droop and drools somewhat. She has no headache dizziness LH or double vision. No swallowing difficulties. - Physical Exam General: Alert, Oriented x3, Cooperative HEENT: Atraumatic, PERRLA, EOMI, Normocephalic Neck: Supple, No JVD, Negative Carotid Bruits Lungs: Clear to auscultation, Normal air movement Cardiovascular: Regular rate, No murmurs Abdomen: Bowel Sounds Present, Soft, Non Tender Extremities: No edema, Capillary Refill Less than 3 Seconds Skin: No rashes, No breakdown Musculoskeletal: No Tenderness to Palpation of Joints or Extremities Neurological: Facial Droop, - - right facial droop. right arm and leg weakness. decreased right senior database programmer strength. unable to dorsiflex right foot. Psych/Mental Status: Normal Affect, Appropriate, Alert and oriented to time, place, person, mood and affect Vital Signs Temp Pulse Resp BP Pulse Ox 97.7 F L 72 16 133/78 H 95 06/17/18 07:06 06/17/18 07:06 06/17/18 07:06 06/17/18 07:06 06/17/18 07:06 Oxygen Delivery Method Room Air Weight: 165 lb 2.02 oz Body Mass Index (BMI) 28.3 Finger Stick Blood Glucose 174 Intake and Output for Last 24 Hours 06/15/18 06/16/18 06/17/18 23:59 23:59 23:59 Intake Total 480 / 480 Balance 480 / 480 Laboratory Tests Past 24 Hrs 06/17/18 06/17/18 08:32 08:32 WBC 6.7 RBC 3.71 L Hgb 11.0 L Hct 34.5 L MCV 93.0 MCH 29.6 MCHC 31.9 L RDW 14.8 H RDW Differential 47.6 H Plt Count 190 MPV 11.3 Sodium 143 Potassium 3.7 Chloride 104 Carbon Dioxide 27.0 Anion Gap 12 BUN 7 Creatinine 0.74 Estim Creat Clear Calc 40.68 Est GFR (MDRD) Af Amer 97 Est GFR (MDRD) Non-Af 80 BUN/Creatinine Ratio 9.4 L Glucose 193 H Calcium 9.0 Medical Necessity - Tobacco Use Smoking Status: Former smoker Assessment/Plan All Active Problems Acute CVA (cerebrovascular accident) (Acute) Hyperglycemia (Acute) Thrombocytopenia (Acute) 1. CVA s/p left ICA aneurysm stenting - BL cerebellar peduncles left > right, right middle cerebellar infarct, old pontine stroke. 50% basal artery stenosis. Continue pt/ot/st per rehab team. right sided weakness ongoing. continue asa/plavix/statin. 2. DMt2 newly dx'd - start metformin 500 bid. a1c 6.8. 3. HTN - stable 4. HLD - statin 5. thrombocytopenia - has resolved 6. GERD - protonix Thank you for the opportunity to participate in the care of this patient. This patient was seen by Terrence Woody PA-C under the supervision of Dr. Padilla.
--- NOTE | 2018-06-17 16:24 | PN_ITS ---
Subjective: Patient transferred from [facility] to Rehab unit last night. She was initially here at [facility] for new onset right sided weakness. She was found to have a Left ICA aneurysm and BL middle cerebellar peduncle strokes and an old pontine stroke and was transferred to [facility] for neurosurgery eval. During that stay she had a left ICA stent placed. She had a brief stay in the ICU after the surgery for hypotension, no intubation. After stabilization she was transferred here for rehab. She continues to have right upper and lower ext weakness. She has mild right facial droop and drools somewhat. She has no headache dizziness LH or double vision. No swallowing difficulties. - Physical Exam General: Alert, Oriented x3, Cooperative HEENT: Atraumatic, PERRLA, EOMI, Normocephalic Neck: Supple, No JVD, Negative Carotid Bruits Lungs: Clear to auscultation, Normal air movement Cardiovascular: Regular rate, No murmurs Abdomen: Bowel Sounds Present, Soft, Non Tender Extremities: No edema, Capillary Refill Less than 3 Seconds Skin: No rashes, No breakdown Musculoskeletal: No Tenderness to Palpation of Joints or Extremities Neurological: Facial Droop, - - right facial droop. right arm and leg weakness. decreased right blueprint trimmer strength. unable to dorsiflex right foot. Psych/Mental Status: Normal Affect, Appropriate, Alert and oriented to time, place, person, mood and affect Vital Signs Temp Pulse Resp BP Pulse Ox 97.7 F L 72 16 133/78 H 95 06/17/18 07:06 06/17/18 07:06 06/17/18 07:06 06/17/18 07:06 06/17/18 07:06 Oxygen Delivery Method Room Air Weight: 165 lb 2.02 oz Body Mass Index (BMI) 28.3 Finger Stick Blood Glucose 174 Intake and Output for Last 24 Hours 06/15/18 06/16/18 06/17/18 23:59 23:59 23:59 Intake Total 480 / 480 Balance 480 / 480 Laboratory Tests Past 24 Hrs 06/17/18 06/17/18 08:32 08:32 WBC 6.7 RBC 3.71 L Hgb 11.0 L Hct 34.5 L MCV 93.0 MCH 29.6 MCHC 31.9 L RDW 14.8 H RDW Differential 47.6 H Plt Count 190 MPV 11.3 Sodium 143 Potassium 3.7 Chloride 104 Carbon Dioxide 27.0 Anion Gap 12 BUN 7 Creatinine 0.74 Estim Creat Clear Calc 40.68 Est GFR (MDRD) Af Amer 97 Est GFR (MDRD) Non-Af 80 BUN/Creatinine Ratio 9.4 L Glucose 193 H Calcium 9.0 Medical Necessity - Tobacco Use Smoking Status: Former smoker Assessment/Plan All Active Problems Acute CVA (cerebrovascular accident) (Acute) Hyperglycemia (Acute) Thrombocytopenia (Acute) 1. CVA s/p left ICA aneurysm stenting - BL cerebellar peduncles left > right, right middle cerebellar infarct, old pontine stroke. 50% basal artery stenosis. Continue pt/ot/st per rehab team. right sided weakness ongoing. continue asa/plavix/statin. 2. DMt2 newly dx'd - start metformin 500 bid. a1c 6.8. 3. HTN - stable 4. HLD - statin 5. thrombocytopenia - has resolved 6. GERD - protonix Thank you for the opportunity to participate in the care of this patient. This patient was seen by Terrence Woody PA-C under the supervision of Dr. Padilla.
[2018-06-17 19:21] VITALS: BP 135/80; PULSE 87; RESP 16; TEMP 36.6; O2SAT 96
[2018-06-17] MEDS: Mirtazapine 15 MG Tablet PO (20:46)
[2018-06-17] MEDS: Atorvastatin Calcium 80 MG Tablet PO (20:46)
[2018-06-17 20:51] VITALS: BMI 28.3
[2018-06-18] MEDS: Enoxaparin 40 MG/0.4 ML Syringe SC (05:18)
[2018-06-18 06:35] LABS: Bedside Glucose 111 mg/dL (70-110)
[2018-06-18 07:10] VITALS: O2SAT 95
[2018-06-18] MEDS: Aspirin E.C. 81 MG Tablet PO (08:09)
[2018-06-18] MEDS: Clopidogrel Bisulfate 75 MG Tablet PO (08:09)
[2018-06-18] MEDS: Pantoprazole Sodium 20 MG Tablet PO (08:12)
[2018-06-18 10:00] VITALS: BP 109/64; PULSE 73; RESP 18; TEMP 36.4; O2SAT 95
[2018-06-18 12:16] VITALS: BMI 28.3
--- NOTE | 2018-06-18 13:49 | PCM.HP.STD ---
History of Present Illness Date of Admission: 06/16/18 Chief Complaint: Debility and right-sided weakness The patient is a 78 year old right-handed white female who presents to the [facility] acute rehab unit after hospitalization at [facility]. She initially presented to [place] on 06/08 with a 2 day history of increasing right-sided weakness. She had had a stroke in October affecting her right side but the symptoms were worse. MRI and MRA as well as CTA was performed at that time in [facility] which did not disclose an acute stroke. I reviewed these images as well and I agree. Due to the increasing symptoms however and the possibility that she had an MRI negative brainstem acute infarct she was transferred to [facility]. Evaluation was primarily supportive. She did have a left ICA and MCA stent placed. The ICA stent she believes was in her neck however there was a question of stenosis in the cavernous portion of her ICA. I do not currently have the angiography reports from [facility] and I have requested these. She is doing well otherwise other than she is frustrated because of the differing opinions that she has received. Her daughter and friend are present, all of the above were discussed with her in detail. She is otherwise doing well. She says she does not have diabetes, indeed her hemoglobin A1c is 6.8. She does not want to take any metformin and believes this is causing her headache, she also wants to discontinue her Accu-Cheks. This will all be complied with. Rehab is sikh of her prior level of functional independence. Past Medical History Past Medical History (Chronic Problems): Chronic Problems History of CVA (cerebrovascular accident) (Chronic) HTN (hypertension) (Chronic) HLD (hyperlipidemia) (Chronic) GERD (gastroesophageal reflux disease) (Chronic) Allergies latex Allergy (Verified 06/07/18 17:03) Swelling Home Medications: Ambulatory Orders Medication Instructions Recorded Clopidogrel Bisulfate [Plavix] 75 mg PO DAILY 06/07/18 Mirtazapine [Remeron] 15 mg PO QHS 06/07/18 Omeprazole Magnesium [Prilosec Otc] 20 mg PO DAILY 06/07/18 Polyethylene Glycol 3350 [Miralax] 17 gm PO DAILY 06/16/18 Acetaminophen [Tylenol Tablet] 650 mg PO Q6H PRN PRN tablet 06/26/18 Aspirin E.C. [Ecotrin] 81 mg PO DAILY@0800 tablet 06/26/18 Atorvastatin Calcium [Lipitor] 80 mg PO QHS tablet 06/26/18 Calcium Carbonate [Tums] 1,000 mg PO Q6H PRN PRN tablet 06/26/18 Surgical History: appendectomy, cholecystectomy, hysterectomy, - - x 2 Psychiatric History: No pertinent psych hx ASSISTANT THERAPY AIDE History: No pertinent ASSISTANT THERAPY AIDE history Smoking Status: Former smoker - *Family History Maternal History Items: - - Notable maternal family history of diabetes. Paternal History Items: - - Notable paternal family history of heart disease, [place], diabetes. Review of Systems Constitutional: Denies: Chills, Fever, Weight Change HEENT: Denies: Head Aches, Sinus Congestion, Sinus Drainage Cardiovascular: Denies: Chest Pain, Palpitations Respiratory: Denies: Cough, Shortness of breath at rest, Sputum production Gastrointestinal: Denies: Abdominal Pain, Nausea, Vomiting Genitourinary: Denies: Dysuria Musculoskeletal: Denies: Joint Pain, Joint Tenderness Skin: Denies: Rash, Wounds Neurological: Denies: Numbness, Tingling, Focal weakness Psychiatric: Denies: Anxiety, Depression, Homicidal Ideations, Suicidal Ideations Hematologic/ Lymphatic: Denies: Easy Bruising, Easy Bleeding VTE Information - Inpt Only VTE Present on Admission: Yes VTE Pharm Prophylaxis ordered?: Yes - Physical Exam General: Alert, Oriented x3, Cooperative, No apparent distress Neurological: Cranial nerves II-XII grossly intact, - - rue and rle mild paresis 3+/5 and spasticity Vital Signs Temp Pulse Resp BP Pulse Ox 36.4 C L 73 18 109/64 95 06/18/18 10:00 06/18/18 10:00 06/18/18 10:00 06/18/18 10:00 06/18/18 10:00 Oxygen Delivery Method Room Air Weight: 74.9 kg Body Mass Index (BMI) 28.3 Finger Stick Blood Glucose 174 Intake and Output for Last 24 Hours 06/16/18 06/17/18 06/18/18 23:59 23:59 23:59 Intake Total 480 / 480 480 / 480 Balance 480 / 480 480 / 480 POC Glucose 06/18/18 06:27 POC Glucose 111 H Assessment/Plan All Active Problems Acute CVA (cerebrovascular accident) (Acute) Hyperglycemia (Acute) Thrombocytopenia (Acute) impression: Debility due to chronic infarct affecting her right side with a superimposed MRI negative acute ischemic infarct. She is also status post tenting of her left ICA and MCA arteries. Goal of rehab is sikh of prior level of functional independence. She lives in a handicapped accessible apartment. Plan: Physical therapy for gait and balance Occupational Therapy for ADLs Speech therapy Bowel protocol As needed analgesics DVT prophylaxis: Lovenox Discontinue anti-glycemic agents and Accu-Cheks at patient's request. Her pretreatment hemoglobin A1c is 6.8.
--- NOTE | 2018-06-18 13:52 | REHABEVAL_ITS ---
Admission Information Status Changes from Prescreening?: No changes Identified Actual Problem List:: Skin Intergrity, Pain, ALteration in Cmfrt, Cognitve Impr/ Memory Loss, Mobility Impaired, Self Care Deficit, BP, Hypertension, Ineffect.D/ C Plan r/t Psy Potential Problem List:: DVT, Bleeding, Infection, UTI, Aspiration, Falls, Skin Integrity, Depression Risk of Complications DVT: LMWH, JORDI Hose, Sequential Compression Device Bleeding: Monitor Lab Values, Nursing to Teach Precautions for anti-coagulation therapy., Wound, if applicable, to be assessed every shift., Stroke patients assessed for lethargy or change in status. Infection: Clinical Staff to Monitor for S/S of infection:, S/S of infection include fever, redness, warmth, etc. Urinary Tract Infection: Monitor for frequency, burning, discomfort, or incontinence., Nursing will obtain urine sample for urinalysis and C&S when ordered. Aspiration: Clinical staff will monitor for coughing, drooling, congestion., Speech will evaluate swallowing and dsyphasia., Nursing will monitor patient swallowing during meals. Falls: Patient will be evaluated for Fall Precautions, Patient will be placed on Fall Precautions as indicated per protocol. Skin Breakdown: Nursing will assess skin daily using assessment tool., Nursing will place on Skin Breakdown Precautions as indicated. Pain: Clinical staff will assess patient's pain level per protocol., Medications will be given, if needed, and the pain level reassessed., Other methods: Massage, distraction, decrease stimulus, etc. used PRN. Plan of Care Patient requires physician specializing in physical medicine and rehab oversight to provide close medical supervision of rehab issues including: Pain Management, Sleep Problems, Bowel and Bladder, Medical and co-morbidity Management, DVT prophylaxis, Rehabilitation Leadership, Coordination of treatment team Patient needs Physical Therapy: For a minimum of 1 hour, At least 5 out of 7 days Patient needs Physical Therapy to improve:: Mobility, Mobility, Mobility, Strengthening, Transfers, Stretching, ROM, Endurance, Stairs, Gait, Balance Patient needs Occupational Therapy: For a minimum of 1 hour, At least 5 out of 7 days Patient needs Occupational Therapy to improve ADL's incl.: Eating, Grooming, Bathing, Dressing, Toileting, Toilet transfers, Community Reintegration, Higher functioning activities, Household tasks, Adaptive Equipment, Splinting, Other activities as determined Patient requires speech therapy: For a minimum of 1 hour, At least 5 out of 7 days Patient requires speech therapy for: Swallowing, Cognition, Language Skills, Compensatory Strategies Patient requires 24/ Rehabilitation Nursing for: Pain Issues, Identifying and preventing risk factors, Monitoring and reporting current medical conditions, Assisting with ambulation, transfer, and all ADL's, Teaching patients about disease process and medications, Family teaching, Providing safe environment, Bowel and Bladder Issues, Skin integrity, Medication Management Patient needs Marketing Production Specialist/ Case Management for: Discharge Planning, Arranging Home Equipment or Services, Family Interventions Patient needs Dietary and Nutrition Services for: Adequate Nutrition, Nutritional Supplements, Nutritional Education Goals Patient will remain: free from falls, or injury at time of discharge. Patient will perform bed mobility at: MOD I level of assist. Patient will complete transfers from bed to chair at: MOD I level of assist. Patient will ambulate: 100 feet, with MOD I assist, with LRD Patient will complete upper body dressing at: MOD I level of assist. Patient will complete lower body dressing at: MOD I level of assist. Patient will complete toileting at: MOD I level of assist. Patient will perform bathing at: MOD I level of assist. Patient will complete grooming at: MOD I level of assist. Patient will complete home management skills at: MOD I level of assist. Patient will achieve: 12 stairs, at MOD I assist Patient will have pain level of: of 3 or less Patient's skin will: remain intact, free from infection. Patient will receive: adequate nutrition. Discharge Planning Pt Prognosis for Sig. Practical Improv. w/in Reasonable Time: Good Anticipated D/C Destination: Home with Outpt Therapy Was Preadmission Assessment Accurate?: Yes
--- NOTE | 2018-06-18 13:52 | HP.PCM_ITS ---
History of Present Illness Date of Admission: 06/16/18 Chief Complaint: Debility and right-sided weakness The patient is a 78 year old right-handed white female who presents to the [facility] acute rehab unit after hospitalization at [facility]. She initially presented to [place] on 06/08 with a 2 day history of increasing right-sided weakness. She had had a stroke in October affecting her right side but the symptoms were worse. MRI and MRA as well as CTA was performed at that time in [facility] which did not disclose an acute stroke. I reviewed these images as well and I agree. Due to the increasing symptoms however and the possibility that she had an MRI negative brainstem acute infarct she was transferred to [facility]. Evaluation was primarily supportive. She did have a left ICA and MCA stent placed. The ICA stent she believes was in her neck however there was a question of stenosis in the cavernous portion of her ICA. I do not currently have the angiography reports from [facility] and I have requested these. She is doing well otherwise other than she is frustrated because of the differing opinions that she has received. Her daughter and friend are present, all of the above were discussed with her in detail. She is otherwise doing well. She says she does not have diabetes, indeed her hemoglobin A1c is 6.8. She does not want to take any metformin and believes this is causing her headache, she also wants to discontinue her Accu-Cheks. This will all be complied with. Rehab is orthodox of her prior level of functional independence. Past Medical History Past Medical History (Chronic Problems): Chronic Problems History of CVA (cerebrovascular accident) (Chronic) HTN (hypertension) (Chronic) HLD (hyperlipidemia) (Chronic) GERD (gastroesophageal reflux disease) (Chronic) Allergies latex Allergy (Verified 06/07/18 17:03) Swelling Home Medications: Ambulatory Orders Medication Instructions Recorded Clopidogrel Bisulfate [Plavix] 75 mg PO DAILY 06/07/18 Mirtazapine [Remeron] 15 mg PO QHS 06/07/18 Omeprazole Magnesium [Prilosec Otc] 20 mg PO DAILY 06/07/18 Polyethylene Glycol 3350 [Miralax] 17 gm PO DAILY 06/16/18 Acetaminophen [Tylenol Tablet] 650 mg PO Q6H PRN PRN tablet 06/26/18 Aspirin E.C. 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 Paternal History Items: - - Notable paternal family history of heart disease, [place], diabetes. Review of Systems Constitutional: Denies: Chills, Fever, Weight Change HEENT: Denies: Head Aches, Sinus Congestion, Sinus Drainage Cardiovascular: Denies: Chest Pain, Palpitations Respiratory: Denies: Cough, Shortness of breath at rest, Sputum production Gastrointestinal: Denies: Abdominal Pain, Nausea, Vomiting Genitourinary: Denies: Dysuria Musculoskeletal: Denies: Joint Pain, Joint Tenderness Skin: Denies: Rash, Wounds Neurological: Denies: Numbness, Tingling, Focal weakness Psychiatric: Denies: Anxiety, Depression, Homicidal Ideations, Suicidal Ideations Hematologic/ Lymphatic: Denies: Easy Bruising, Easy Bleeding VTE Information - Inpt Only VTE Present on Admission: Yes VTE Pharm Prophylaxis ordered?: Yes - Physical Exam General: Alert, Oriented x3, Cooperative, No apparent distress Neurological: Cranial nerves II-XII grossly intact, - - rue and rle mild paresis 3+/5 and spasticity Vital Signs Temp Pulse Resp BP Pulse Ox 36.4 C L 73 18 109/64 95 06/18/18 10:00 06/18/18 10:00 06/18/18 10:00 06/18/18 10:00 06/18/18 10:00 Oxygen Delivery Method Room Air Weight: 74.9 kg Body Mass Index (BMI) 28.3 Finger Stick Blood Glucose 174 Intake and Output for Last 24 Hours 06/16/18 06/17/18 06/18/18 23:59 23:59 23:59 Intake Total 480 / 480 480 / 480 Balance 480 / 480 480 / 480 POC Glucose 06/18/18 06:27 POC Glucose 111 H Assessment/Plan All Active Problems Acute CVA (cerebrovascular accident) (Acute) Hyperglycemia (Acute) Thrombocytopenia (Acute) impression: Debility due to chronic infarct affecting her right side with a superimposed MRI negative acute ischemic infarct. She is also status post tenting of her left ICA and MCA arteries. Goal of rehab is orthodox of prior level of functional independence. She lives in a handicapped accessible apartment. Plan: Physical therapy for gait and balance Occupational Therapy for ADLs Speech therapy Bowel protocol As needed analgesics DVT prophylaxis: Lovenox Discontinue anti-glycemic agents and Accu-Cheks at patient's request. Her pretreatment hemoglobin A1c is 6.8.
[2018-06-18] MEDS: Atorvastatin Calcium 80 MG Tablet PO (20:33)
[2018-06-18] MEDS: Mirtazapine 15 MG Tablet PO (20:33)
[2018-06-18 20:41] VITALS: BP 117/75; PULSE 97; RESP 16; TEMP 36.6; O2SAT 94
[2018-06-18 20:43] VITALS: PULSE 97; RESP 16; O2SAT 94
[2018-06-18 20:46] VITALS: BMI 28.3
[2018-06-18] MEDS: Calcium Carbonate 500 MG Tablet PO (23:35)
--- NOTE | 2018-06-18 23:39 | NURSING ---
Hospitalist crystal re: pt c/o heartburn. N/O for Tums PRN. Pt provided saltine crackers with the Tums.
--- NOTE | 2018-06-19 03:27 | NURSING ---
Reviewed and agree with CONCESSION ATTENDANT documentation and FIMs charting.
[2018-06-19] MEDS: Enoxaparin 40 MG/0.4 ML Syringe SC (05:20)
[2018-06-19 08:30] VITALS: BP 124/82; PULSE 74; RESP 20; TEMP 36.6; O2SAT 96
[2018-06-19] MEDS: Clopidogrel Bisulfate 75 MG Tablet PO (08:36)
[2018-06-19] MEDS: Aspirin E.C. 81 MG Tablet PO (08:36)
[2018-06-19] MEDS: Pantoprazole Sodium 20 MG Tablet PO (08:36)
[2018-06-19] MEDS: Calcium Carbonate 500 MG Tablet 1000 MG PO ×2 (10:45→21:54)
[2018-06-19 11:21] VITALS: BMI 28.3
--- NOTE | 2018-06-19 13:27 | PCM.PN.NEU ---
Subjective: NO issues overnight. Patient care discussed with nursing staff. 78 yr CF with PMH HTN, HLD, H/O stroke in October 2017 with residual right sided weakness admitted to [facility] with worsening right sided weakness on 06/07/18. MRI brain done on admission reported to show chronic bilateral middle cerebellar peduncle stroke (initially read as subacute infarct by Radiologis Dr. 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 mm left cavernous ICA aneurysm, CTA head did not report any basilar stenosis, but CTA neck showed 50-69% stenosis of the left ICA, with possible dissection of the atheroma (not the true wall) in the right ICA, patient was transferred to [facility] where she had catheter angiogram and since there was ulcerated plaque at CCA bifurcation an ICA stent was placed (though records are not available from [facility]), patient now being admitted to [facility] IP RU with debility for > 3 hrs therapy daily, with goal of returning home at or near her prior level of functional independence. - Physical Exam General: Alert HEENT: Normocephalic Neck: Supple Lungs: Clear to auscultation Cardiovascular: Normal S1, Normal S2 Abdomen: Bowel Sounds Present Extremities: No cyanosis Musculoskeletal: No Tenderness to Palpation of Joints or Extremities Neurological: - - consious, alert, CN 2-12 grossly intact, power 5/5 left UE/LE, right UE -4/5 and right LE +4/5, no sensory loss, no cerebellar signs, Reflexes + B/L B/S/T/K/A, gait deferred Vital Signs Temp Pulse Resp BP Pulse Ox 97.8 F 74 20 H 124/82 H 96 06/19/18 08:30 06/19/18 08:30 06/19/18 08:30 06/19/18 08:30 06/19/18 08:30 Oxygen Delivery Method Room Air Weight: 74.9 kg Body Mass Index (BMI) 28.3 Finger Stick Blood Glucose 174 Intake and Output for Last 24 Hours 06/17/18 06/18/18 06/19/18 23:59 23:59 23:59 Intake Total 480 / 480 720 / 720 360 / 360 Balance 480 / 480 720 / 720 360 / 360 Medical Necessity - Tobacco Use Smoking Status: Former smoker Assessment/Plan All Active Problems Acute CVA (cerebrovascular accident) (Acute) Hyperglycemia (Acute) Thrombocytopenia (Acute) 78 yr CF with PMH HTN, HLD, H/O stroke in October 2017 with residual right sided weakness admitted to [facility] with worsening right sided weakness on 06/07/18. MRI brain done on admission reported to show chronic bilateral middle cerebellar peduncle stroke (initially read as subacute infarct by Radiologist Dr. 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 mm left cavernous ICA aneurysm, CTA head did not report any basilar stenosis, but CTA neck showed 50-69% stenosis of the left ICA, with possible dissection of the atheroma (not the true wall) in the right ICA, patient was transferred to [facility] where she had catheter angiogram and since there was ulcerated plaque at CCA bifurcation an ICA stent was placed (though records are not available from [facility]), patient now being admitted to [facility] IP RU with debility for > 3 hrs therapy daily, with goal of returning home at or near her prior level of functional independence. Plan -PT for gait stability -OT for ADLs -Analgesics as needed -Bowel protocol -HTN-stable, goal BP < 130/80 mmHg -HLD- on Lipitor -H/O stroke- s/p ICA stent, on ASA/Plavix and Lipitor -GERD-on Protonix -? DM-Hba1c was found to be 6.8% on 06/07/18 during inpatient admission, patient did not tolerate metformin, further management per hospitalist recommendation. -Stroke risk factors discussed and stroke education provided -GI/DVT prophylaxis -Fall precautions -Follow up with Dr. Cruz (Neuro-intervention) in 2-3 weeks after discharge and F/U with Dr. Ayala (Neurology) in 2-3 weeks as outpatient or patient can follow up here with [facility]rology at [facility] as outpatient in 2-3 weeks after discharge. -Further medical management per hospitalist recommendations.
--- NOTE | 2018-06-19 13:31 | PN.NEURO_ITS ---
Subjective: NO issues overnight. Patient care discussed with nursing staff. 78 yr CF with PMH HTN, HLD, H/O stroke in October 2017 with residual right sided weakness admitted to [facility] with worsening right sided weakness on 06/07/18. MRI brain done on admission reported to show chronic bilateral middle cerebellar peduncle stroke (initially read as subacute infarct by Radiologis Dr. 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 mm left cavernous ICA aneurysm, CTA head did not report any basilar stenosis, but CTA neck showed 50- 69% stenosis of the left ICA, with possible dissection of the atheroma (not the true wall) in the right ICA, patient was transferred to [facility] where she had catheter angiogram and since there was ulcerated plaque at CCA bifurcation an ICA stent was placed (though records are not available from [facility]), patient now being admitted to [facility] IP RU with debility for > 3 hrs therapy daily, with goal of returning home at or near her prior level of functional independence. - Physical Exam General: Alert HEENT: Normocephalic Neck: Supple Lungs: Clear to auscultation Cardiovascular: Normal S1, Normal S2 Abdomen: Bowel Sounds Present Extremities: No cyanosis Musculoskeletal: No Tenderness to Palpation of Joints or Extremities Neurological: - - consious, alert, CN 2-12 grossly intact, power 5/5 left UE/LE , right UE -4/5 and right LE +4/5, no sensory loss, no cerebellar signs, Reflexes + B/L B/S/T/K/A, gait deferred Vital Signs Temp Pulse Resp BP Pulse Ox 97.8 F 74 20 H 124/82 H 96 06/19/18 08:30 06/19/18 08:30 06/19/18 08:30 06/19/18 08:30 06/19/18 08:30 Oxygen Delivery Method Room Air Weight: 74.9 kg Body Mass Index (BMI) 28.3 Finger Stick Blood Glucose 174 Intake and Output for Last 24 Hours 06/17/18 06/18/18 06/19/18 23:59 23:59 23:59 Intake Total 480 / 480 720 / 720 360 / 360 Balance 480 / 480 720 / 720 360 / 360 Medical Necessity - Tobacco Use Smoking Status: Former smoker Assessment/Plan All Active Problems Acute CVA (cerebrovascular accident) (Acute) Hyperglycemia (Acute) Thrombocytopenia (Acute) 78 yr CF with PMH HTN, HLD, H/O stroke in October 2017 with residual right sided weakness admitted to [facility] with worsening right sided weakness on 06/07/18. MRI brain done on admission reported to show chronic bilateral middle cerebellar peduncle stroke (initially read as subacute infarct by Radiologist Dr. 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 mm left cavernous ICA aneurysm, CTA head did not report any basilar stenosis, but CTA neck showed 50-69% stenosis of the left ICA, with possible dissection of the atheroma (not the true wall) in the right ICA, patient was transferred to [facility] where she had catheter angiogram and since there was ulcerated plaque at CCA bifurcation an ICA stent was placed (though records are not available from [facility]), patient now being admitted to [facility] IP RU with debility for > 3 hrs therapy daily, with goal of returning home at or near her prior level of functional independence. Plan -PT for gait stability -OT for ADLs -Analgesics as needed -Bowel protocol -HTN-stable, goal BP < 130/80 mmHg -HLD- on Lipitor -H/O stroke- s/p ICA stent, on ASA/Plavix and Lipitor -GERD-on Protonix -? DM-Hba1c was found to be 6.8% on 06/07/18 during inpatient admission, patient did not tolerate metformin, further management per hospitalist recommendation. -Stroke risk factors discussed and stroke education provided -GI/DVT prophylaxis -Fall precautions -Follow up with Dr. Cruz (Neuro-intervention) in 2-3 weeks after discharge and F/U with Dr. Ayala (Neurology) in 2-3 weeks as outpatient or patient can follow up here with [facility] outpatient in 2-3 weeks after discharge. -Further medical management per hospitalist recommendations.
--- NOTE | 2018-06-19 14:35 | PCM.PN.HOSP ---
Subjective: Patient is a 78-year-old lady with recent CVA in October 2017 who presented with slurred speech of 2 days duration in addition to weakness involving the right side imaging studies demonstrated Probably late subacute ischemic infarcts in both middle cerebellar peduncles, left greater than right. Admitted to [facility] hospital bed for subsequent management. Patient was found to have left ICA aneurysm subsequently transferred to [facility] patient underwent left ICA aneurysm stenting Objective: GENERAL: cooperative but with slurred speech HEENT: Clear conjunctiva, moist oral mucosa NECK; supple, normal thyroid, no distended JVD. CHEST: Clear to auscultation bilaterally, HEART: Regular S1 S2, no audible murmurs ABDOMEN: soft, non-tender, normoactive bowel sounds, RECTAL: deferred EXTREMITIES: No edema, no clubbing, no cyanosis. SPECIALTY TRANSFORMER ASSEMBLER: Awake; right-sided weakness. SKIN: No Rash Vitals/I&O's: Vital Signs Temp Pulse Resp BP Pulse Ox 97.8 F 74 20 H 124/82 H 96 06/19/18 08:30 06/19/18 08:30 06/19/18 08:30 06/19/18 08:30 06/19/18 08:30 Oxygen Delivery Method Room Air Weight: 74.9 kg Body Mass Index (BMI) 28.3 Finger Stick Blood Glucose 174 Intake and Output for Last 24 Hours 06/17/18 06/18/18 06/19/18 23:59 23:59 23:59 Intake Total 480 / 480 720 / 720 600 / 600 Balance 480 / 480 720 / 720 600 / 600 Current Medications Acetaminophen (Tylenol) 650 mg PO Q6H PRN PRN PRN Reason: Mild Pain (0-3/10)/Headache Aspirin (Ecotrin) 81 mg PO DAILY@0800 [facility] Last Admin: 06/19/18 08:36 Dose: 81 mg Atorvastatin Calcium (Lipitor) 80 mg PO QHS [facility] Last Admin: 06/18/18 20:33 Dose: 80 mg Bisacodyl (Dulcolax) 10 mg RECTAL .PRN X 1 PRN PRN Reason: Constipation Calcium Carbonate (Tums) 1,000 mg PO Q6H PRN PRN PRN Reason: HEARTBURN Last Admin: 06/19/18 10:45 Dose: 1,000 mg Clopidogrel Bisulfate (Plavix) 75 mg PO DAILY [facility] Last Admin: 06/19/18 08:36 Dose: 75 mg Enoxaparin Sodium (Lovenox) 40 mg SC DAILY@0600 [facility] Last Admin: 06/19/18 05:20 Dose: 40 mg Magnesium Hydroxide (Milk Of Magnesia) 30 ml PO .PRN X 1 PRN PRN Reason: Constipation Mirtazapine (Remeron) 15 mg PO QHS [facility] Last Admin: 06/18/18 20:33 Dose: 15 mg Pantoprazole Sodium (Protonix) 20 mg PO DAILY [facility] Last Admin: 06/19/18 08:36 Dose: 20 mg Medical Necessity - Tobacco Use Smoking Status: Former smoker Assessment/Plan All Active Problems Acute CVA (cerebrovascular accident) (Acute) Hyperglycemia (Acute) Thrombocytopenia (Acute) Patient is a 78-year-old lady with recent CVA in October 2017 who presented with slurred speech of 2 days duration in addition to weakness involving the right side imaging studies demonstrated Probably late subacute ischemic infarcts in both middle cerebellar peduncles, left greater than right. Admitted to monitored bed for subsequent management. Patient was found to have left ICA aneurysm subsequently transferred to [facility] patient underwent left ICA aneurysm stenting 1. Subacute ischemic infarct involving bilateral middle cerebellar peduncles: Patient admitted to monitored bed managed with dual antiplatelet therapy transferred to a [facility] for left ICA aneurysm for which she underwent left ICA aneurysm stenting 2. Left ICA aneurysm patient underwent stenting at [facility] 3. Hypertension patient pressure controlled 4. Dyslipidemia-patient is on statin therapy, continued at home dose 5. New Onset diabetes mellitus type 2 patient presented with hyperglycemia hemoglobin A1c was 6.8 did obtain diabetic as well as dietary consultation 6. DVT prophylaxis SC Lovenox A Code Visit Inpatient E&M: 84586 Subs Hosp L2
[2018-06-19 20:00] VITALS: BP 145/92; PULSE 91; RESP 20; TEMP 36.7; O2SAT 95; BMI 28.3
[2018-06-19] MEDS: Atorvastatin Calcium 80 MG Tablet PO (21:54)
[2018-06-19] MEDS: Mirtazapine 15 MG Tablet PO (21:54)
--- NOTE | 2018-06-20 01:28 | NURSING ---
Reviewed and agree with FRUIT CULLER documentation and FIMs charting.
[2018-06-20] MEDS: Enoxaparin 40 MG/0.4 ML Syringe SC (05:06)
[2018-06-20 07:43] VITALS: BP 136/77; PULSE 76; RESP 18; TEMP 36.4; O2SAT 97
[2018-06-20] MEDS: Pantoprazole Sodium 20 MG Tablet PO (07:46)
[2018-06-20] MEDS: Calcium Carbonate 500 MG Tablet 1000 MG PO ×2 (07:46→20:53)
[2018-06-20] MEDS: Clopidogrel Bisulfate 75 MG Tablet PO (07:46)
[2018-06-20] MEDS: Aspirin E.C. 81 MG Tablet PO (07:46)
--- NOTE | 2018-06-20 10:30 | PN.NEURO_ITS ---
Subjective: No issues overnight, discussed patient care with nursing staff. - Physical Exam General: Alert HEENT: Normocephalic Neck: Supple Lungs: Normal air movement Cardiovascular: Normal S1, Normal S2 Abdomen: Bowel Sounds Present Extremities: No cyanosis Musculoskeletal: No Tenderness to Palpation of Joints or Extremities Neurological: - - consious, alert, CN 2-12 grossly intact, power 5/5 left UE/LE , right UE -4/5 and right LE +4/5, no sensory loss, no cerebellar signs, Reflexes + B/L B/S/T/K/A, gait deferred Vital Signs Psych/Mental Status: Normal Affect Vital Signs Temp Pulse Resp BP Pulse Ox 97.6 F L 76 18 136/77 H 97 06/20/18 07:43 06/20/18 07:43 06/20/18 07:43 06/20/18 07:43 06/20/18 07:43 Oxygen Delivery Method Room Air Weight: 74.9 kg Body Mass Index (BMI) 28.3 Finger Stick Blood Glucose 174 Intake and Output for Last 24 Hours 06/18/18 06/19/18 06/20/18 23:59 23:59 23:59 Intake Total 720 / 720 960 / 960 240 / 240 Balance 720 / 720 960 / 960 240 / 240 Medical Necessity - Tobacco Use Smoking Status: Former smoker Assessment/Plan All Active Problems Acute CVA (cerebrovascular accident) (Acute) Hyperglycemia (Acute) Thrombocytopenia (Acute) 78 yr CF with PMH HTN, HLD, H/O stroke in October 2017 with residual right sided weakness admitted to [facility] with worsening right sided weakness on 06/07/18. MRI brain done on admission reported to show chronic bilateral middle cerebellar peduncle stroke (initially read as subacute infarct by Radiologist Dr. 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 mm left cavernous ICA aneurysm, CTA head did not report any basilar stenosis, but CTA neck showed 50-69% stenosis of the left ICA, with possible dissection of the atheroma (not the true wall) in the right ICA, patient was transferred to [facility] where she had catheter angiogram and since there was ulcerated plaque at CCA bifurcation an ICA stent was placed (though records are not available from [facility]), patient now being admitted to [facility] with debility for > 3 hrs therapy daily, with goal of returning home at or near her prior level of functional independence. Plan -PT for gait stability -OT for ADLs -Analgesics as needed -Bowel protocol -HTN-stable, goal BP < 130/80 mmHg -HLD- on Lipitor -H/O stroke- s/p ICA stent, on ASA/Plavix and Lipitor -GERD-on Protonix -? DM-Hba1c was found to be 6.8% on 06/07/18 during inpatient admission, patient did not tolerate metformin, further management per hospitalist recommendation. -Stroke risk factors discussed and stroke education provided -GI/DVT prophylaxis -Fall precautions -Follow up with Dr. Cruz (Neuro-intervention) in 2-3 weeks after discharge and F/U with Dr. Ayala (Neurology) in 2-3 weeks as outpatient or patient can follow up here with [facility] as outpatient in 2-3 weeks after discharge. -Further medical management per hospitalist recommendations.
[2018-06-20 12:59] VITALS: BMI 28.3
[2018-06-20 19:14] VITALS: BP 110/70; PULSE 97; RESP 16; TEMP 36.6; O2SAT 96
[2018-06-20] MEDS: Mirtazapine 15 MG Tablet PO (22:15)
[2018-06-20] MEDS: Atorvastatin Calcium 80 MG Tablet PO (22:16)
[2018-06-21] MEDS: Enoxaparin 40 MG/0.4 ML Syringe SC (06:53)
--- NOTE | 2018-06-21 08:36 | PCM.PN.HOSP ---
Subjective: She has seen no new complaints Objective: GENERAL: cooperative but with slurred speech HEENT: Clear conjunctiva, moist oral mucosa NECK; supple, normal thyroid, no distended JVD. CHEST: Clear to auscultation bilaterally, HEART: Regular S1 S2, no audible murmurs ABDOMEN: soft, non-tender, normoactive bowel sounds, RECTAL: deferred EXTREMITIES: No edema, no clubbing, no cyanosis. PV DESIGN ENGINEER: Awake; right-sided weakness. SKIN: No Rash Vitals/I&O's: Vital Signs Temp Pulse Resp BP Pulse Ox 97.8 F 97 16 110/70 96 06/20/18 19:14 06/20/18 19:14 06/20/18 19:14 06/20/18 19:14 06/20/18 19:14 Oxygen Delivery Method Room Air Weight: 72.121 kg Body Mass Index (BMI) 28.3 Finger Stick Blood Glucose 174 Intake and Output for Last 24 Hours 06/19/18 06/20/18 06/21/18 23:59 23:59 23:59 Intake Total 960 / 960 480 / 480 Balance 960 / 960 480 / 480 Current Medications Acetaminophen (Tylenol) 650 mg PO Q6H PRN PRN PRN Reason: Mild Pain (0-3/10)/Headache Aspirin (Ecotrin) 81 mg PO DAILY@0800 [facility] Last Admin: 06/20/18 07:46 Dose: 81 mg Atorvastatin Calcium (Lipitor) 80 mg PO QHS [facility] Last Admin: 06/20/18 22:16 Dose: 80 mg Bisacodyl (Dulcolax) 10 mg RECTAL .PRN X 1 PRN PRN Reason: Constipation Calcium Carbonate (Tums) 1,000 mg PO Q6H PRN PRN PRN Reason: HEARTBURN Last Admin: 06/20/18 20:53 Dose: 1,000 mg Clopidogrel Bisulfate (Plavix) 75 mg PO DAILY [facility] Last Admin: 06/20/18 07:46 Dose: 75 mg Enoxaparin Sodium (Lovenox) 40 mg SC DAILY@0600 [facility] Last Admin: 06/21/18 06:53 Dose: 40 mg Magnesium Hydroxide (Milk Of Magnesia) 30 ml PO .PRN X 1 PRN PRN Reason: Constipation Mirtazapine (Remeron) 15 mg PO QHS [facility] Last Admin: 06/20/18 22:15 Dose: 15 mg Pantoprazole Sodium (Protonix) 20 mg PO DAILY [facility] Last Admin: 06/20/18 07:46 Dose: 20 mg Medical Necessity - Tobacco Use Smoking Status: Former smoker Assessment/Plan All Active Problems Acute CVA (cerebrovascular accident) (Acute) Hyperglycemia (Acute) Thrombocytopenia (Acute) Patient is a 78-year-old lady with recent CVA in October 2017 who presented with slurred speech of 2 days duration in addition to weakness involving the right side imaging studies demonstrated Probably late subacute ischemic infarcts in both middle cerebellar peduncles, left greater than right. Admitted to monitored bed for subsequent management. Patient was found to have left ICA aneurysm subsequently transferred to [facility] patient underwent left ICA aneurysm stenting 1. Subacute ischemic infarct involving bilateral middle cerebellar peduncles: Patient admitted to monitored bed managed with dual antiplatelet therapy transferred to a [facility] for left ICA aneurysm for which she underwent left ICA aneurysm stenting 2. Left ICA aneurysm patient underwent stenting at [facility] 3. Hypertension patient pressure controlled 4. Dyslipidemia-patient is on statin therapy, continued at home dose 5. New Onset diabetes mellitus type 2 patient presented with hyperglycemia hemoglobin A1c was 6.8 did obtain diabetic as well as dietary consultation 6. DVT prophylaxis SC Lovenox A Code Visit Inpatient E&M: 88768 Subs Hosp L2
[2018-06-21 09:21] VITALS: BP 113/68; PULSE 92; RESP 16; TEMP 36.4; O2SAT 96
[2018-06-21] MEDS: Clopidogrel Bisulfate 75 MG Tablet PO (09:54)
[2018-06-21] MEDS: Aspirin E.C. 81 MG Tablet PO (09:55)
--- NOTE | 2018-06-21 11:25 | PCM.PN.NEU ---
Subjective: No Issues overnight. Patient care discussed with nursing staff - Physical Exam General: Alert HEENT: Normocephalic Neck: Supple Lungs: Clear to auscultation Cardiovascular: Normal S1, Normal S2 Abdomen: Bowel Sounds Present Extremities: No cyanosis Musculoskeletal: No Tenderness to Palpation of Joints or Extremities Neurological: - - consious, alert, CN 2-12 grossly intact, power 5/5 left UE/LE, right UE -4/5 and right LE +4/5, no sensory loss, no cerebellar signs, Reflexes + B/L B/S/T/K/A, gait deferred Vital Signs Psych/Mental Status: Normal Affect Vital Signs Temp Pulse Resp BP Pulse Ox 97.6 F L 92 16 113/68 96 06/21/18 09:21 06/21/18 09:21 06/21/18 09:21 06/21/18 09:21 06/21/18 09:21 Oxygen Delivery Method Room Air Weight: 72.121 kg Body Mass Index (BMI) 28.3 Finger Stick Blood Glucose 174 Intake and Output for Last 24 Hours 06/19/18 06/20/18 06/21/18 23:59 23:59 23:59 Intake Total 960 / 960 480 / 480 240 / 240 Balance 960 / 960 480 / 480 240 / 240 Medical Necessity - Tobacco Use Smoking Status: Former smoker Assessment/Plan All Active Problems Acute CVA (cerebrovascular accident) (Acute) Hyperglycemia (Acute) Thrombocytopenia (Acute) 78 yr CF with PMH HTN, HLD, H/O stroke in October 2017 with residual right sided weakness admitted to [facility] with worsening right sided weakness on 06/07/18. MRI brain done on admission reported to show chronic bilateral middle cerebellar peduncle stroke (initially read as subacute infarct by Radiologist Dr. 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 and 3x2 mm left cavernous ICA aneurysm, CTA head did not report any basilar stenosis, but CTA neck showed 50-69% stenosis of the left ICA, with possible dissection of the atheroma (not the true wall) in the right ICA, patient was transferred to [facility] where she had catheter angiogram and since there was ulcerated plaque at CCA bifurcation an ICA stent was placed (though records are not available from [facility]), patient now being admitted to [facility] with debility for > 3 hrs therapy daily, with goal of returning home at or near her prior level of functional independence. Plan -PT for gait stability -OT for ADLs -Analgesics as needed -Bowel protocol -HTN-stable, goal BP < 130/80 mmHg -HLD- on Lipitor -H/O stroke- s/p ICA stent, on ASA/Plavix and Lipitor -GERD-on Protonix -? DM-Hba1c was found to be 6.8% on 06/07/18 during inpatient admission, patient did not tolerate metformin, further management per hospitalist recommendation. -Stroke risk factors discussed and stroke education provided -GI/DVT prophylaxis -Fall precautions -Follow up with Dr. Cruz (Neuro-intervention) in 2-3 weeks after discharge and F/U with Dr. Aayla (Neurology) in 2-3 weeks as outpatient or patient can follow up here with Neurology at [place] as outpatient in 2-3 weeks after discharge. -Further medical management per hospitalist recommendations.
[2018-06-21] MEDS: Calcium Carbonate 500 MG Tablet 1000 MG PO ×2 (12:02→21:12)
[2018-06-21] MEDS: Omeprazole 20 MG Capsule PO (12:03)
[2018-06-21 17:00] VITALS: BMI 28.3
[2018-06-21 19:46] VITALS: BP 124/69; PULSE 86; RESP 17; TEMP 36.6; O2SAT 93
[2018-06-21 19:48] VITALS: BMI 28.3
[2018-06-21] MEDS: Mirtazapine 15 MG Tablet PO (21:10)
[2018-06-21] MEDS: Atorvastatin Calcium 80 MG Tablet PO (21:10)
--- NOTE | 2018-06-22 02:47 | NURSING ---
Pt became very upset around 20:00 when she found out she was slated to have a morning shower with therapy for ADLs. Pt became tearful and anxious. Nurse provided alternative and asked if pt would like to shower at night. Pt was agreeable. Pt stated that she does not wish to shower in the morning and that she is not a morning person. Pt was showered by the ETHYLENE COMPRESSOR OPERATOR. Pt was pleasant following shower and sat up in chair watching tv till fatigued.
[2018-06-22] MEDS: Clopidogrel Bisulfate 75 MG Tablet PO (08:53)
[2018-06-22] MEDS: Omeprazole 20 MG Capsule PO (08:53)
[2018-06-22] MEDS: Aspirin E.C. 81 MG Tablet PO (08:53)
[2018-06-22] MEDS: Enoxaparin 40 MG/0.4 ML Syringe SC (08:54)
[2018-06-22 09:23] VITALS: BP 124/73; PULSE 68; RESP 17; TEMP 36.6; O2SAT 96
--- NOTE | 2018-06-22 11:06 | CASEMGMT ---
Team meeting held. Patient present as well as patient family. No discharge date set at this time. Patient approved 24 Medicare days with a discharge on or by 07/10/18. Patient plans to discharge to home alone with daughter for support as needed. Patient to continue with further care and treatment on the Inpatient Rehab Unit. Patient to be re-teamed next week. Support given. Will continue to follow. Wilda TEIXEIRA, STATIONARY ENGINEER SUPERVISOR
--- NOTE | 2018-06-22 13:07 | PN.NEURO_ITS ---
Subjective: No Issues overnight. Teamed in the staff meeting today. All questions were answered. Patient wished to have DNR CC as code status, discussed in detail with patient and her daughter. With PT- transfer standby assist, walking with walker, right knee hyperextends. With OT-grooming- supervised level, Upper body care- stand by assist and lower body care minimal assist. - Physical Exam General: Alert HEENT: Normocephalic Neck: Supple Lungs: Normal air movement Cardiovascular: Normal S1, Normal S2 Abdomen: Bowel Sounds Present Extremities: No cyanosis Skin: No rashes Musculoskeletal: No Tenderness to Palpation of Joints or Extremities Neurological: - - consious, alert, CN 2-12 grossly intact, power 5/5 left UE/LE , right UE -4/5 and right LE +4/5, no sensory loss, no cerebellar signs, Reflexes + B/L B/S/T/K/A, gait deferred Psych/Mental Status: Normal Affect Vital Signs Temp Pulse Resp BP Pulse Ox 97.8 F 68 17 124/73 H 96 06/22/18 09:23 06/22/18 09:23 06/22/18 09:23 06/22/18 09:23 06/22/18 09:23 Oxygen Delivery Method Room Air Weight: 72.121 kg Body Mass Index (BMI) 28.3 Finger Stick Blood Glucose 174 Intake and Output for Last 24 Hours 06/20/18 06/21/18 06/22/18 23:59 23:59 23:59 Intake Total 480 / 480 680 / 680 160 / 160 Balance 480 / 480 680 / 680 160 / 160 Medical Necessity - Tobacco Use Smoking Status: Former smoker Assessment/Plan All Active Problems Acute CVA (cerebrovascular accident) (Acute) Hyperglycemia (Acute) Thrombocytopenia (Acute) 78 yr CF with PMH HTN, HLD, H/O stroke in October 2017 with residual right sided weakness admitted to [facility] with worsening right sided weakness on 06/07/18. MRI brain done on admission reported to show chronic bilateral middle cerebellar peduncle stroke (initially read as subacute infarct by Radiologist Dr. 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 mm left cavernous ICA aneurysm, CTA head did not report any basilar stenosis, but CTA neck showed 50-69% stenosis of the left ICA, with possible dissection of the atheroma (not the true wall) in the right ICA, patient was transferred to [facility] where she had catheter angiogram and since there was ulcerated plaque at CCA bifurcation an ICA stent was placed (though records are not available from [facility]), patient now being admitted to [facility] with debility for > 3 hrs therapy daily, with goal of returning home at or near her prior level of functional independence. Plan -PT for gait stability -OT for ADLs -Analgesics as needed -Bowel protocol -HTN-stable, goal BP < 130/80 mmHg -HLD- on Lipitor -H/O stroke- s/p ICA stent, on ASA/Plavix and Lipitor -GERD-on Protonix -? DM-Hba1c was found to be 6.8% on 06/07/18 during inpatient admission, patient did not tolerate metformin, further management per hospitalist recommendation. -Stroke risk factors discussed and stroke education provided -GI/DVT prophylaxis -Fall precautions -Follow up with Dr. Cruz (Neuro-intervention) in 2-3 weeks after discharge and F/U with Dr. Ayala (Neurology) in 2-3 weeks as outpatient or patient can follow up here with Neurology at [place] as outpatient in 2-3 weeks after discharge. -Further medical management per hospitalist recommendations.
[2018-06-22 14:52] VITALS: BMI 28.3
[2018-06-22 18:54] VITALS: BP 127/72; PULSE 85; RESP 17; TEMP 36.7; O2SAT 96
[2018-06-22] MEDS: Atorvastatin Calcium 80 MG Tablet PO (21:16)
[2018-06-22] MEDS: Mirtazapine 15 MG Tablet PO (21:16)
[2018-06-23 05:00] VITALS: BMI 28.3
[2018-06-23] MEDS: Enoxaparin 40 MG/0.4 ML Syringe SC (05:42)
[2018-06-23 07:48] VITALS: BP 102/53; PULSE 69; RESP 18; TEMP 36.7; O2SAT 95
[2018-06-23] MEDS: Aspirin E.C. 81 MG Tablet PO (07:49)
[2018-06-23] MEDS: Clopidogrel Bisulfate 75 MG Tablet PO (07:49)
[2018-06-23] MEDS: Omeprazole 20 MG Capsule PO (07:49)
[2018-06-23] MEDS: Magnesium Hydroxide 30 ML UDC PO (08:28)
[2018-06-23 11:01] VITALS: BMI 28.3
--- NOTE | 2018-06-23 11:45 | PCM.PN.HOSP ---
Subjective: Patient seen participating in physical therapy Objective: GENERAL: cooperative HEENT: Clear conjunctiva, NECK; supple, normal thyroid, CHEST: Clear to auscultation bilaterally, HEART: Regular S1 S2, no audible murmurs ABDOMEN: soft, non-tender, normoactive bowel sounds, RECTAL: deferred EXTREMITIES: Left BKA ESTHETIC DERMATOLOGIST: Awake; no lateralizing signs. SKIN: No Rash Vitals/I&O's: Vital Signs Temp Pulse Resp BP Pulse Ox 98.0 F 69 18 102/53 L 95 06/23/18 07:48 06/23/18 07:48 06/23/18 07:48 06/23/18 07:48 06/23/18 07:48 Oxygen Delivery Method Room Air Weight: 72.121 kg Body Mass Index (BMI) 28.3 Finger Stick Blood Glucose 174 Intake and Output for Last 24 Hours 06/21/18 06/22/18 06/23/18 23:59 23:59 23:59 Intake Total 680 / 680 400 / 400 Balance 680 / 680 400 / 400 Current Medications Acetaminophen (Tylenol) 650 mg PO Q6H PRN PRN PRN Reason: Mild Pain (0-3/10)/Headache Aspirin (Ecotrin) 81 mg PO DAILY@0800 [facility] Last Admin: 06/23/18 07:49 Dose: 81 mg Atorvastatin Calcium (Lipitor) 80 mg PO QHS [facility] Last Admin: 06/22/18 21:16 Dose: 80 mg Bisacodyl (Dulcolax) 10 mg RECTAL .PRN X 1 PRN PRN Reason: Constipation Calcium Carbonate (Tums) 1,000 mg PO Q6H PRN PRN PRN Reason: HEARTBURN Last Admin: 06/21/18 21:12 Dose: 1,000 mg Clopidogrel Bisulfate (Plavix) 75 mg PO DAILY [facility] Last Admin: 06/23/18 07:49 Dose: 75 mg Enoxaparin Sodium (Lovenox) 40 mg SC DAILY@0600 [facility] Last Admin: 06/23/18 05:42 Dose: 40 mg Magnesium Hydroxide (Milk Of Magnesia) 30 ml PO .PRN X 1 PRN PRN Reason: Constipation Last Admin: 06/23/18 08:28 Dose: 30 ml Mirtazapine (Remeron) 15 mg PO QHS [facility] Last Admin: 06/22/18 21:16 Dose: 15 mg Omeprazole (Prilosec) 20 mg PO DAILY [facility] Last Admin: 06/23/18 07:49 Dose: 20 mg Medical Necessity - Tobacco Use Smoking Status: Former smoker Assessment/Plan All Active Problems Acute CVA (cerebrovascular accident) (Acute) Hyperglycemia (Acute) Thrombocytopenia (Acute) Patient is a 78-year-old lady with recent CVA in October 2017 who presented with slurred speech of 2 days duration in addition to weakness involving the right side imaging studies demonstrated Probably late subacute ischemic infarcts in both middle cerebellar peduncles, left greater than right. Admitted to monitored bed for subsequent management. Patient was found to have left ICA aneurysm subsequently transferred to [facility] patient underwent left ICA aneurysm stenting 1. Subacute ischemic infarct involving bilateral middle cerebellar peduncles: Patient admitted to monitored bed managed with dual antiplatelet therapy transferred to a [facility] for left ICA aneurysm for which she underwent left ICA aneurysm stenting 2. Left ICA aneurysm patient underwent stenting at [facility] 3. Hypertension patient pressure controlled 4. Dyslipidemia-patient is on statin therapy, continued at home dose 5. New Onset diabetes mellitus type 2 patient presented with hyperglycemia hemoglobin A1c was 6.8 did obtain diabetic as well as dietary consultation 6. DVT prophylaxis SC Lovenox A Code Visit Inpatient E&M: 49715 Subs Hosp L2
--- NOTE | 2018-06-23 12:11 | PN.NEURO_ITS ---
Subjective: No issues overnight. Patient care discussed with nursing staff. - Physical Exam General: Alert HEENT: Normocephalic Neck: Supple Lungs: Clear to auscultation Cardiovascular: Normal S1, Normal S2 Abdomen: Bowel Sounds Present Extremities: No cyanosis Skin: No rashes Musculoskeletal: No Tenderness to Palpation of Joints or Extremities Neurological: - - consious, alert, CN 2-12 grossly intact, power 5/5 left UE/LE , right UE -4/5 and right LE +4/5, no sensory loss, no cerebellar signs, Reflexes + B/L B/S/T/K/A, gait deferred Psych/Mental Status: Normal Affect Vital Signs Temp Pulse Resp BP Pulse Ox 98.0 F 69 18 102/53 L 95 06/23/18 07:48 06/23/18 07:48 06/23/18 07:48 06/23/18 07:48 06/23/18 07:48 Oxygen Delivery Method Room Air Weight: 72.121 kg Body Mass Index (BMI) 28.3 Finger Stick Blood Glucose 174 Intake and Output for Last 24 Hours 06/21/18 06/22/18 06/23/18 23:59 23:59 23:59 Intake Total 680 / 680 400 / 400 Balance 680 / 680 400 / 400 Medical Necessity - Tobacco Use Smoking Status: Former smoker Assessment/Plan All Active Problems Acute CVA (cerebrovascular accident) (Acute) Hyperglycemia (Acute) Thrombocytopenia (Acute) 78 yr CF with PMH HTN, HLD, H/O stroke in October 2017 with residual right sided weakness admitted to [facility] with worsening right sided weakness on 06/07/18. MRI brain done on admission reported to show chronic bilateral middle cerebellar peduncle stroke (initially read as subacute infarct by Radiologist Dr. 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 mm left cavernous ICA aneurysm, CTA head did not report any basilar stenosis, but CTA neck showed 50-69% stenosis of the left ICA, with possible dissection of the atheroma (not the true wall) in the right ICA, patient was transferred to [facility] where she had catheter angiogram and since there was ulcerated plaque at CCA bifurcation an ICA stent was placed (though records are not available from [facility]), patient now being admitted to [facility] with debility for > 3 hrs therapy daily, with goal of returning home at or near her prior level of functional independence. Plan -PT for gait stability -OT for ADLs -Analgesics as needed -Bowel protocol -HTN-stable, goal BP < 130/80 mmHg -HLD- on Lipitor -H/O stroke- s/p ICA stent, on ASA/Plavix and Lipitor -GERD-on Protonix -? DM-Hba1c was found to be 6.8% on 06/07/18 during inpatient admission, patient did not tolerate metformin, further management per hospitalist recommendation. -Stroke risk factors discussed and stroke education provided -GI/DVT prophylaxis -Fall precautions -Follow up with Dr. Cruz (Neuro-intervention) in 2-3 weeks after discharge and F/U with Dr. Ayala (Neurology) in 2-3 weeks as outpatient or patient [facility] in 2-3 weeks after discharge. -Further medical management per hospitalist recommendations.
[2018-06-23 18:44] VITALS: BP 136/78; PULSE 94; RESP 17; TEMP 36.6; O2SAT 93
[2018-06-23 21:16] VITALS: BP 136/78; PULSE 94; RESP 17; TEMP 36.6; O2SAT 93
[2018-06-23] MEDS: Atorvastatin Calcium 80 MG Tablet PO (21:20)
[2018-06-23] MEDS: Mirtazapine 15 MG Tablet PO (21:20)
[2018-06-24] MEDS: Enoxaparin 40 MG/0.4 ML Syringe SC (05:37)
[2018-06-24 07:22] VITALS: BP 119/71; PULSE 72; RESP 18; TEMP 36.5; O2SAT 94
[2018-06-24] MEDS: Omeprazole 20 MG Capsule PO (07:38)
[2018-06-24] MEDS: Aspirin E.C. 81 MG Tablet PO (07:38)
[2018-06-24] MEDS: Clopidogrel Bisulfate 75 MG Tablet PO (07:38)
[2018-06-24 10:48] VITALS: BMI 28.3
[2018-06-24 21:38] VITALS: BP 135/73; PULSE 85; RESP 17; TEMP 36.6; O2SAT 95
[2018-06-24] MEDS: Atorvastatin Calcium 80 MG Tablet PO (21:42)
[2018-06-24] MEDS: Mirtazapine 15 MG Tablet PO (21:42)
[2018-06-25] MEDS: Enoxaparin 40 MG/0.4 ML Syringe SC (06:14)
--- NOTE | 2018-06-25 07:30 | PCM.PN.HOSP ---
Subjective: Seen, right upper extremity weakness persist. Objective: GENERAL: cooperative HEENT: Clear conjunctiva, NECK; supple, normal thyroid, CHEST: Clear to auscultation bilaterally, HEART: Regular S1 S2, no audible murmurs ABDOMEN: soft, non-tender, normoactive bowel sounds, RECTAL: deferred EXTREMITIES: Left BKA END LATHE OPERATOR: Awake; no lateralizing signs. SKIN: No Rash Vitals/I&O's: Vital Signs Temp Pulse Resp BP Pulse Ox 98 F 85 17 135/73 H 95 06/24/18 21:38 06/24/18 21:38 06/24/18 21:38 06/24/18 21:38 06/24/18 21:38 Oxygen Delivery Method Room Air Weight: 72.121 kg Body Mass Index (BMI) 28.3 Finger Stick Blood Glucose 174 Intake and Output for Last 24 Hours 06/23/18 06/24/18 06/25/18 23:59 23:59 23:59 Intake Total 580 / 580 480 / 480 Balance 580 / 580 480 / 480 Current Medications Acetaminophen (Tylenol) 650 mg PO Q6H PRN PRN PRN Reason: Mild Pain (0-3/10)/Headache Aspirin (Ecotrin) 81 mg PO DAILY@0800 [facility] Last Admin: 06/24/18 07:38 Dose: 81 mg Atorvastatin Calcium (Lipitor) 80 mg PO QHS [facility] Last Admin: 06/24/18 21:42 Dose: 80 mg Bisacodyl (Dulcolax) 10 mg RECTAL .PRN X 1 PRN PRN Reason: Constipation Calcium Carbonate (Tums) 1,000 mg PO Q6H PRN PRN PRN Reason: HEARTBURN Last Admin: 06/21/18 21:12 Dose: 1,000 mg Clopidogrel Bisulfate (Plavix) 75 mg PO DAILY [facility] Last Admin: 06/24/18 07:38 Dose: 75 mg Enoxaparin Sodium (Lovenox) 40 mg SC DAILY@0600 [facility] Last Admin: 06/25/18 06:14 Dose: 40 mg Magnesium Hydroxide (Milk Of Magnesia) 30 ml PO .PRN X 1 PRN PRN Reason: Constipation Last Admin: 06/23/18 08:28 Dose: 30 ml Mirtazapine (Remeron) 15 mg PO QHS [facility] Last Admin: 06/24/18 21:42 Dose: 15 mg Omeprazole (Prilosec) 20 mg PO DAILY [facility] Last Admin: 06/24/18 07:38 Dose: 20 mg Medical Necessity - Tobacco Use Smoking Status: Former smoker Assessment/Plan All Active Problems Acute CVA (cerebrovascular accident) (Acute) Hyperglycemia (Acute) Thrombocytopenia (Acute) Patient is a 78-year-old lady with recent CVA in October 2017 who presented with slurred speech of 2 days duration in addition to weakness involving the right side imaging studies demonstrated Probably late subacute ischemic infarcts in both middle cerebellar peduncles, left greater than right. Admitted to monitored bed for subsequent management. Patient was found to have left ICA aneurysm subsequently transferred to [facility] patient underwent left ICA aneurysm stenting 1. Subacute ischemic infarct involving bilateral middle cerebellar peduncles: Patient admitted to monitored bed managed with dual antiplatelet therapy transferred to a [facility] for left ICA aneurysm for which she underwent left ICA aneurysm stenting 2. Left ICA aneurysm patient underwent stenting at [facility] 3. Hypertension patient pressure controlled 4. Dyslipidemia-patient is on statin therapy, continued at home dose 5. New Onset diabetes mellitus type 2 patient presented with hyperglycemia hemoglobin A1c was 6.8 did obtain diabetic as well as dietary consultation 6. DVT prophylaxis SC Lovenox Code Visit Inpatient E&M: 99619 Subs Hosp L2
[2018-06-25] MEDS: Clopidogrel Bisulfate 75 MG Tablet PO (07:38)
[2018-06-25] MEDS: Aspirin E.C. 81 MG Tablet PO (07:38)
[2018-06-25] MEDS: Omeprazole 20 MG Capsule PO (07:39)
[2018-06-25 08:05] VITALS: BP 116/66; PULSE 70; RESP 18; TEMP 36.5; O2SAT 95
--- NOTE | 2018-06-25 12:34 | NURSING ---
patient voiced wanting to go home and was tearful with daughter. daughter deepika and this nurse spoke with patient and agreed to wait until tuesday to discuss with rehab team about discharge. dr clarke aware and will be discussed with team. offered multiple times to walk this am or nustep declined. patient likes to eat meals in room, declined to come to dining area. patient apologetic about getting upset, comfort measures provided and listened. patient sitting up in recliner eating lunch.
--- NOTE | 2018-06-25 13:19 | NURSING ---
patient ambulated to [facility] room and on nu-step for 12 minutes adn 13 seconds. patient ambulated back to room sitting up in chair. patient agreed to walk later today in hallway.
--- NOTE | 2018-06-25 14:20 | NURSING ---
patient ambulated > 150 [address] in hallway x supervision. patient sitting in chair now working on crossword puzzle.
[2018-06-25 14:21] VITALS: BMI 28.3
[2018-06-25] MEDS: Atorvastatin Calcium 80 MG Tablet PO (20:34)
[2018-06-25] MEDS: Mirtazapine 15 MG Tablet PO (20:34)
[2018-06-25 21:34] VITALS: BP 133/92; PULSE 85; RESP 16; TEMP 36.8; O2SAT 94
[2018-06-25 21:59] VITALS: BMI 28.3
--- NOTE | 2018-06-26 05:14 | NURSING ---
Reviewed and agree with LPNs fims and handoff
[2018-06-26] MEDS: Enoxaparin 40 MG/0.4 ML Syringe SC (06:56)
[2018-06-26] MEDS: Omeprazole 20 MG Capsule PO (07:38)
[2018-06-26] MEDS: Clopidogrel Bisulfate 75 MG Tablet PO (07:38)
[2018-06-26] MEDS: Aspirin E.C. 81 MG Tablet PO (07:38)
[2018-06-26 09:05] VITALS: BP 123/90; PULSE 82; RESP 18; TEMP 36.4; O2SAT 95
--- NOTE | 2018-06-26 10:39 | PCM.DC ---
- Discharge Diagnoses Current Active Problems: CVA Reason(s) for Visit for Discharge Instructions: debility You will use the following diet at home:: No restrictions Weight Bearing Status: Weight bearing as tolerated Lifting Restrictions: 10 lbs Allergies/Adverse Reactions: Allergies latex Allergy (Verified 06/07/18 17:03) Swelling Medications to take at Discharge Clopidogrel Bisulfate [Plavix] 75 mg PO DAILY 06/07/18 Mirtazapine [Remeron] 15 mg PO QHS 06/07/18 Omeprazole Magnesium [Prilosec Otc] 20 mg PO DAILY 06/07/18 Polyethylene Glycol 3350 [Miralax] 17 gm PO DAILY 06/16/18 Acetaminophen [Tylenol Tablet] 650 mg PO Q6H PRN PRN tablet 06/26/18 Aspirin E.C. [Ecotrin] 81 mg PO DAILY@0800 tablet 06/26/18 Atorvastatin Calcium [Lipitor] 80 mg PO QHS tablet 06/26/18 Calcium Carbonate [Tums] 1,000 mg PO Q6H PRN PRN tablet 06/26/18 Primary Care Physician: Juan Broussard Chi, MD [Primary Care Provider] - Test Results: Test results from this visit will be discussed in further detail at your follow-up appointment, if applicable. Please Follow Up With: Juan Broussard Chi, MD Please Follow Up With: Adriana Amaral NP-C - call [phone] for appt Proposed Discharge Date: 06/26/18
--- NOTE | 2018-06-26 10:44 | DS.PCM_ITS ---
Rehab Discharge Summary DATE OF ADMISSION: 06/16/18 DATE OF DISCHARGE: 06/26/18 - Rehab Diagnosis debility, left mca cva Discharge Diet: No Restrictions Discharge Activity: Return to Normal Activity, May Not Drive Weight Bearing Status: Weight bearing as tolerated Lifting Restrict to (lbs):: 10 Home Medications: Medications to take at Discharge Clopidogrel Bisulfate [Plavix] 75 mg PO DAILY 06/07/18 Mirtazapine [Remeron] 15 mg PO QHS 06/07/18 Omeprazole Magnesium [Prilosec Otc] 20 mg PO DAILY 06/07/18 Polyethylene Glycol 3350 [Miralax] 17 gm PO DAILY 06/16/18 Acetaminophen [Tylenol Tablet] 650 mg PO Q6H PRN PRN tablet 06/26/18 Aspirin E.C. [Ecotrin] 81 mg PO DAILY@0800 tablet 06/26/18 Atorvastatin Calcium [Lipitor] 80 mg PO QHS tablet 06/26/18 Calcium Carbonate [Tums] 1,000 mg PO Q6H PRN PRN tablet 06/26/18 Primary Care Physician: Juan Broussard Chi, MD [Primary Care Provider] - Please Follow Up With: Juan Broussard Chi, MD Please Follow Up With: Adriana Amaral NP-C - call [phone] for appt Disposition: Home with Home Health Minutes spent on discharge:: 45 Patient Condition:: Good Rehab Course rehab admit history:The patient is a 78 year old right-handed white female who presents to the [facility] acute rehab unit after hospitalization at [facility]. She initially presented to [place] on 06/08 with a 2 day history of increasing right-sided weakness. She had had a stroke in October affecting her right side but the symptoms were worse. MRI and MRA as well as CTA was performed at that time in [facility] which did not disclose an acute stroke. I reviewed these images as well and I agree. Due to the increasing symptoms however and the possibility that she had an MRI negative brainstem acute infarct she was transferred to [facility]. Evaluation was primarily supportive. She did have a left ICA and MCA stent placed. The ICA stent she believes was in her neck however there was a question of stenosis in the cavernous portion of her ICA. I do not currently have the angiography reports from [place] [facility] and I have requested these. She is doing well otherwise other than she is frustrated because of the differing opinions that she has received. Her daughter and friend are present, all of the above were discussed with her in detail. She is otherwise doing well. She says she does not have diabetes, indeed her hemoglobin A1c is 6.8. She does not want to take any metformin and believes this is causing her headache, she also wants to discontinue her Accu-Cheks. This will all be complied with. Rehab is mormonism of her prior level of functional independence. the patients stay in the rehab unit was uneventful. she tolerated therapies and improved to the extent that she could be safely discharged home with home health. she requested that her appt with interventional radioligist be cancelled. sugars remained unremarkeable. Meaningful Use Info Meaningful Use Diagnoses (Choose all that apply): None applicable
--- NOTE | 2018-06-26 13:38 | CASEMGMT ---
Team meeting held. Patient present as well as patient daughter. Patient requesting for discharge date to be set for 06/26/18. Team recommending for patient to continue with further care and treatment, patient declining to continue with stay and choosing to discharge home on this day. Team recommending for patient to have continued home health services within the home for physical and occupational therapy. Patient is agreeable to recommendations and requesting for home health services to be set up through [facility] ([facility] Patient daughter plans to provide transportation home for patient. Patient plans to discharge to home alone. Patient daughter plans to check in with patient regularly. Patient has a medical alert and pull cord system set up in apartment. Patient reporting to have all needed durable medical equipment already set up within the home. Support given. [facility] This social worker assistant making referral for physical and occupational therapy. Order faxed. Proposed discharge date: 06/26/18 PLAN: Discharge to home alone with home health services. Wilda TEIXEIRA, BROOMMAKER
[2018-06-26 14:08] VITALS: BMI 28.3
[2018-06-26 18:00] VITALS: BP 123/90; PULSE 82; RESP 18; TEMP 36.4; O2SAT 95
--- NOTE | 2018-06-26 18:00 | NURSING ---
Daughter and patient verbalized understanding to discharge instructions given.
== END 2018-06-26 18:00 | disposition home health service (06) | DRG 57 ==
PROVIDERS: Internal Medicine; Admitting Provider Psychiatry & Neurology Neurology; Family Provider Family Medicine Geriatric Medicine; PCP Family Medicine Geriatric Medicine; Visit Provider Family Medicine
DX: I69.351 Hemiplegia and hemiparesis following cerebral infarction affecting right dominant side (principal); E78.5 Hyperlipidemia, unspecified; I10 Essential (primary) hypertension; K21.9 Gastro-esophageal reflux disease without esophagitis; Z87.891 Personal history of nicotine dependence; R73.9 Hyperglycemia, unspecified; R29.810 Facial weakness
CPT/HCPCS: 36415; 80048; 82962; 85027; 92523; 97110; 97116; 97162; 97166; 97530; 97535; 97802; 99406

== ENCOUNTER 2018-07-10 17:46 | Emergency (ER) | payer MEDICARE, MEDICAID, SELFPAY ==
[2018-07-10] VITALS (7 sets, daily range): BP systolic 145; BP diastolic 70; PULSE 98–114; RESP 16–18; TEMP 36.7; O2SAT 94–98; BMI 26.6
--- NOTE | 2018-07-10 18:21 | ED.VISSUMM ---
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 Patient was found walking around outside in the heat, and when approached by police she told them she was trying to of heat stroke. They brought her in for evaluation. Patient states last night she took a bunch of her pills that she normally takes in an attempt to kill herself. She states it did not work so she tried to kill herself by walking in the heat today. She will not say how many or what exactly she took, but states it is her prescription medications. She thinks one is a blood thinner. Patient denies any chest pain, shortness of breath, dizziness, nausea or vomiting, abdominal pain, or any other somatic complaints at this time other than being depressed since her stroke and wanting to . Physical Examination: Vital signs: afebrile, hemodynamically stable, no hypoxia on room air General: well nourished, well developed, in no distress Skin: warm, dry, no rash, no pallor HEENT: normocephalic and atraumatic; PERRL, EOMI, moist mucous membranes Cardiovascular: Tachycardic rate and rhythm without murmurs, no peripheral edema, Respiratory: No increased work of breathing, lungs are clear to auscultation bilaterally, no rales, rhonchi or wheezing Abdominal: Abdomen is soft, nontender with normoactive bowel sounds, no guarding or rebound, no masses MSK: Moves all extremities, no deformities Neuro: Awake and alert, oriented ?4. No facial droop Psych: Depressed affect, poor judgment, positive suicidal ideation Test Results: Abnormal Lab Results 07/10/18 07/10/18 07/10/18 18:10 19:10 19:10 WBC 9.5 RBC 4.47 Hgb 13.2 Hct 41.6 MCV 93.1 MCH 29.5 MCHC 31.7 L RDW 15.1 H RDW Differential 51.4 H Plt Count 172 MPV 11.0 Immature Gran % (Auto) 0.100 Neut % (Auto) 77.4 H Lymph % (Auto) 11.3 L Bossier % (Auto) 9.1 Eos % (Auto) 1.8 Baso % (Auto) 0.3 Absolute Neuts (auto) 7.4 Absolute Lymphs (auto) 1.07 Total Counted Not Reportable PT 13.2 INR 1.0 APTT 29.5 Sodium 145 Potassium 3.4 L Chloride 111 H Carbon Dioxide 23.0 Anion Gap 11 BUN 15 Creatinine 0.82 Estim Creat Clear Calc 53.79 Est GFR (MDRD) Af Amer 87 Est GFR (MDRD) Non-Af 72 BUN/Creatinine Ratio 18.3 Glucose 93 Lactic Acid Calcium 9.0 Total Bilirubin 0.50 AST 51 H ALT 41 Alkaline Phosphatase 109 Troponin I < 0.015 Total Protein 8.2 Albumin 3.7 Globulin 4.5 H Albumin/Globulin Ratio 0.8 L Urine Color Urine Clarity Urine pH Ur Specific Marathon Urine Protein Urine Glucose (UA) Urine Ketones Urine Occult Blood Urine Nitrite Urine Bilirubin Urine Urobilinogen Ur Leukocyte Esterase Urine RBC Urine WBC Ur Squamous Epith Cells Urine Bacteria Hyaline Casts Urine Mucus Salicylates Urine Opiates Screen Urine Methadone Screen Acetaminophen Ur Barbiturates Screen Ur Phencyclidine Scrn Ur Amphetamines Screen U Methamphetamin-MDMA U Benzodiazepines Scrn Urine Cocaine Screen U Cannabinoids Screen Ur Drug Screen Comment Ethyl Alcohol 07/10/18 07/10/18 07/10/18 19:10 19:10 19:10 WBC RBC Hgb Hct MCV MCH MCHC RDW RDW Differential Plt Count MPV Immature Gran % (Auto) Neut % (Auto) Lymph % (Auto) Bossier % (Auto) Eos % (Auto) Baso % (Auto) Absolute Neuts (auto) Absolute Lymphs (auto) Total Counted PT INR APTT Sodium Potassium Chloride Carbon Dioxide Anion Gap BUN Creatinine Estim Creat Clear Calc Est GFR (MDRD) Af Amer Est GFR (MDRD) Non-Af BUN/Creatinine Ratio Glucose Lactic Acid 1.5 Calcium Total Bilirubin AST ALT Alkaline Phosphatase Troponin I Total Protein Albumin Globulin Albumin/Globulin Ratio Urine Color Urine Clarity Urine pH Ur Specific Marathon Urine Protein Urine Glucose (UA) Urine Ketones Urine Occult Blood Urine Nitrite Urine Bilirubin Urine Urobilinogen Ur Leukocyte Esterase Urine RBC Urine WBC Ur Squamous Epith Cells Urine Bacteria Hyaline Casts Urine Mucus Salicylates < 1.7 L Urine Opiates Screen Urine Methadone Screen Acetaminophen < 2.0 L Ur Barbiturates Screen Ur Phencyclidine Scrn Ur Amphetamines Screen U Methamphetamin-MDMA U Benzodiazepines Scrn Urine Cocaine Screen U Cannabinoids Screen Ur Drug Screen Comment Ethyl Alcohol < 3.0 07/10/18 07/10/18 20:28 20:30 WBC RBC Hgb Hct MCV MCH MCHC RDW RDW Differential Plt Count MPV Immature Gran % (Auto) Neut % (Auto) Lymph % (Auto) Bossier % (Auto) Eos % (Auto) Baso % (Auto) Absolute Neuts (auto) Absolute Lymphs (auto) Total Counted PT INR APTT Sodium Potassium Chloride Carbon Dioxide Anion Gap BUN Creatinine Estim Creat Clear Calc Est GFR (MDRD) Af Amer Est GFR (MDRD) Non-Af BUN/Creatinine Ratio Glucose Lactic Acid Calcium Total Bilirubin AST ALT Alkaline Phosphatase Troponin I Total Protein Albumin Globulin Albumin/Globulin Ratio Urine Color Yellow Urine Clarity Sl. Cloudy Urine pH 7.0 Ur Specific Marathon 1.010 Urine Protein 30 H Urine Glucose (UA) Normal Urine Ketones Negative Urine Occult Blood Negative Urine Nitrite Positive H Urine Bilirubin Negative Urine Urobilinogen Normal Ur Leukocyte Esterase 500 H Urine RBC 0 SEEN Urine WBC 10-25 SEEN Ur Squamous Epith Cells 0-5 SEEN Urine Bacteria 3+ Hyaline Casts 0-5 SEEN Urine Mucus 0 SEEN Salicylates Urine Opiates Screen NEGATIVE Urine Methadone Screen NEGATIVE Acetaminophen Ur Barbiturates Screen NEGATIVE Ur Phencyclidine Scrn NEGATIVE Ur Amphetamines Screen NEGATIVE U Methamphetamin-MDMA NEGATIVE U Benzodiazepines Scrn NEGATIVE Urine Cocaine Screen NEGATIVE U Cannabinoids Screen NEGATIVE Ur Drug Screen Comment Ethyl Alcohol Clinical Impression(s) from Imaging Studies Brain CT 07/10/18 18:18 IMPRESSION: Atrophy and involutional change stable head CT no visualized evidence of an acute hemorrhage or infarct or edema. Electronically Signed: Zuleima Turner MD at 21:18 EDT Tel , Service support , Chest X-Ray 07/10/18 20:55 IMPRESSION: Mild to moderate cardiomegaly. Tortuous aorta. Electronically Signed: Zuleima Turner MD at 21:19 EDT Tel , Service support , Medications Given Cephalexin (Keflex) 500 mg PO BID PARISH Stop: 07/17/18 10:01 Emergency Department Course and Treatment: Patient presents after an active suicide attempt by taking multiple pills of her home medications last night. Patient could not state which ones she took, but there was concern for a blood thinner on her medication list. Medical screening showed no electrolyte derangements, hepatic abnormalities or renal derangements. PT/INR/PTT are within normal range. No leukocytosis or anemia. CT the head showed no spontaneous intracranial hemorrhage. Chest x-ray showed no signs of pneumonia. Urine was consistent with UTI. Patient was started on Keflex. Tox screen was negative. Salicylate and acetaminophen were negative. Alcohol was negative. Vitals were unremarkable other than mild tachycardia. EKG showed no ischemic changes, dysrhythmias, or interval abnormalities, including no prolonged QTC. There were no findings on patient's workup concerning for changes secondary to toxic ingestion. Patient was medically cleared for evaluation by crisis intervention counselor due to serious suicide attempt. Patient refused to take keflex for UTI. Treatment Plan: [] Disposition: [] Impression: suicide attempt, UTI This note was generated with [employer] dictation software. It may contain incorrect words, spelling, and punctuation that were not noted in review of the chart prior to signing ED Disposition - Plan for ED Patient: Chief Complaint: Suicidal Referrals: Juan Broussard Chi, MD [Primary Care Provider] -
[2018-07-10 19:33] LABS: Absolute Lymphocyte Count 1.07 X10^3/ul (0.83-4.51); Absolute Neutrophil Count 7.4 X10^3/uL (2.0-7.7); Basophil# 0.03 X10^3/uL; Basophil% 0.3 % (0-1); Eosinophil# 0.17 X10^3/uL; Eosinophils% 1.8 % (0-5); Hematocrit 41.6 % (37-47); Hemoglobin 13.2 g/dl (12.0-15.0); Lymphocyte # 1.07 X10^3/ul (4.0); Lymphocyte % 11.3 % (19-41); Mean Corp Hgb Conc 31.7 g/gl (32-36); Mean Corpuscular Hgb 29.5 pg (27.0-32.0); Mean Corpuscular Volume 93.1 fL (81-99); Monocyte# 0.86 X10^3/uL; Monocyte% 9.1 % (0-10); Neutrophil # 7.36 X10^3/uL (2.7-7.7); Neutrophil % 77.4 % (47-70); Platelet Count 172 K/mm3 (150-450); RBC Distribution Width CV 15.1 % (11.6-14.6); RBC Distribution Width SD 51.4 fl (35.1-43.9); Red Blood Count 4.47 M/mm3 (4.2-5.4); White Blood Count 9.5 K/mm3 (4.4-11.0)
[2018-07-10 19:37] LABS: POSITIVE COUNT NO; POSITIVE DIFFERENTIAL NO; POSITIVE MORPHOLOGY NO
[2018-07-10 19:50] LABS: Alcohol, Blood (Medical)-Serum < 3.0 mg/dL
[2018-07-10 19:51] LABS: ALB/GLOB Ratio 0.8 RATIO (0.9-2.4); AST(SGOT) 51 U/L (15-37); Alanine Aminotransfer ALT/SGPT 41 U/L (13-56); Albumin, Serum 3.7 g/dL (3.2-5.0); Alkaline Phosphatase 109 U/L (45-117); Anion Gap 11 (5-15); BUN 15 mg/dL (7-18); BUN/Creat Ratio 18.3 RATIO (10-20); Chloride 111 mmol/L (98-107); Creatinine, Serum 0.82 mg/dL (0.55-1.02); EST Glomerular Filtration Rate 72 mL/min (>60); Est Glom Filt Rate - Afr Amer 87 mL/min (>60); Estimated Creatinine Clearance 53.79 ml/min; Globulin 4.5 g/dL (2.2-4.2); Glucose 93 mg/dL (74-106); Potassium 3.4 mmol/L (3.5-5.1); Protein, Total 8.2 g/dL (6.4-8.2); Sodium Level 145 mmol/L (136-145)
[2018-07-10 19:56] LABS: Lactic Acid 1.5 mmol/L (0.4-2.0)
[2018-07-10 20:25] LABS: Acetaminophen (Tylenol) Level < 2.0 ug/mL (10.0-30.0); Salicylate < 1.7 mg/dL (2.8-20.0)
[2018-07-10 20:32] LABS: Mucous, Urine 0 SEEN /hpf (<or=2+); Red Blood Cells-Urine 0 SEEN /hpf (0-5)
[2018-07-10 20:35] LABS: Color, Urine Yellow (Yellow); Glucose, Dipstick Normal (Normal); Ketone-Dipstick Negative (Negative); Leukocyte Esterase-Dipstick 500 /ul (Negative); Nitrite-Dipstick Positive (Negative); Occult Blood-Urine Negative /ul (Negative); Protein-Dipstick 30 mg/dl (Negative); Urine Bilirubin Dipstick Negative (Negative); Urine Clarity Sl. Cloudy (Clear); Urine Urobilinogen Normal (Normal)
[2018-07-10 20:45] LABS: Amphetamine Urine VISTA NEGATIVE (<1000 ng/mL); Barbiturate Urine VISTA NEGATIVE (< 200 ng/mL); Benzodiazepine Urine VISTA NEGATIVE (< 200 ng/mL); Cocaine Urine VISTA NEGATIVE (< 300 ng/mL); Ecstacy Urine VISTA NEGATIVE (< 500 ng/mL); Methadone Urine VISTA NEGATIVE (< 300 ng/mL); PCP Urine VISTA NEGATIVE (< 25 ng/mL); THC Urine VISTA NEGATIVE (< 50 ng/mL); Vista UDS pH Range 6
[2018-07-10 20:52] LABS: Bacteria 3+ /hpf (None Seen); Squamous Epithelial Cells - UA 0-5 SEEN /hpf (5-10); White Blood Cells 10-25 SEEN /hpf (0-5)
[2018-07-10 20:54] LABS: Hyaline Cast 0-5 SEEN /lpf (0-5)
[2018-07-10 21:28] LABS: Prothrombin Time (Protime)PT. 13.2 SECONDS (11.7-14.9)
[2018-07-10 21:29] LABS: Partial Thromboplast Time 29.5 Seconds (24.1-36.2)
[2018-07-10 21:42] LABS: CPK Total, Creatine Kinase 41 U/L (26-192)
[2018-07-11] VITALS (7 sets, daily range): BP systolic 101–157; BP diastolic 75–87; PULSE 61–91; RESP 15–18; O2SAT 94–99
--- NOTE | 2018-07-11 11:18 | ED.RN ---
PT REFUSING MEDS AT THIS TIME.
--- NOTE | 2018-07-11 15:42 | ED.VISSUMM ---
- ER Visit Summary Date of Service: 07/11/18 Chief Complaint: [Suicidal ideation] History of Present Illness: The patient is a 78 F [presented with suicidal ideation and was fully evaluated by Dr. Valencia Booth. Patient care turned over to ca this morning awaiting evaluation by crisis and final disposition. Patient was evaluated by crisis and arrangements were made for patient to be transferred to [facility].] Physical Examination: [] Test Results: [] Emergency Department Course and Treatment: [] Treatment Plan: [] Disposition: Transfer] Impression: [Suicidal ideation UTI Depression] This note was generated with Luristication software. It may contain incorrect words, spelling, and punctuation that were not noted in review of the chart prior to signing ED Disposition - Plan for ED Patient: Chief Complaint: Suicidal Referrals: Juan Broussard Chi, MD [Primary Care Provider] -
[2018-07-12 13:48] LABS: Creatine Kinase MB 0 % (0-3); Creatine Kinase MM 100 % (97-100); Creatine Kinase,Total,Serum 37 U/L (24-173); Macro I 0 % (Not Observed); Macro II 0 % (Not Observed)
[2018-07-12 15:12] LABS: Creatine Kinase BB 0 % (0)
== END 2018-07-11 17:13 ==
LOC: ED 19:03
PROVIDERS: Emergency Provider Emergency Medicine; Family Provider Family Medicine Geriatric Medicine; PCP Family Medicine Geriatric Medicine
DX: R45.851 Suicidal ideations (principal); N39.0 Urinary tract infection, site not specified; F32.9 Major depressive disorder, single episode, unspecified; Z86.73 Personal history of transient ischemic attack (TIA), and cerebral infarction without residual deficits
CPT/HCPCS: 70450; 71045; 80053; 80307; 80320; 80329; 81001; 82550; 82552; 83605; 84484; 85025; 85610; 85730; 87077; 87086; 87088; 87186; 93005; 99285; G0480

== ENCOUNTER → 2018-08-08 12:06 | Outpatient (CLI) | payer MEDICARE, MEDICAID, SELFPAY | PROVIDERS: Family Provider Family Medicine Geriatric Medicine; PCP Family Medicine Geriatric Medicine; Visit Provider Family Medicine Geriatric Medicine | DX: N39.0 Urinary tract infection, site not specified (principal) | CPT/HCPCS: 87077; 87086; 87088; 87186 ==

== ENCOUNTER → 2018-08-11 08:51 | Outpatient (CLI) | payer MEDICARE, MEDICAID, SELFPAY ==
--- NOTE | 2018-08-11 08:58 | VDLE_ITS ---
Reason For Study: Edema RIGHT LEFT GSV is normal. GSV is normal. CFV is compressible, spontaneous, phasic, CFV is compressible, spontaneous, phasic, competent and demonstrates normal competent, and demonstrates normal augmentation. augmentation. FV is compressible, spontaneous, phasic, FV is compressible, spontaneous, phasic, competent and demonstrates normal competent and demonstrates normal augmentation. augmentation. POP V is compressible, spontaneous, phasic, POP V is compressible, spontaneous, phasic, competent and demonstrates normal competent and demonstrates normal augmentation. augmentation. T/P Trunk is compressible. T/P Trunk is compressible. PTV is compressible. PTV is compressible. RT PerV is compressible. LT PerV is compressible. Procedure Exam performed in department. A preliminary report was called and/or faxed to Dr. Broussard @ 9:30 @ [phone]. Interpretation Summary Deep veins of the lower extremities are bilaterally patent and compressible segmentally. There is no evidence of deep vein thrombosis on either side. Valvular competence appears intact within the proximal deep venous systems bilaterally. The greater saphenous veins appear bilaterally patent and compressible segmentally. Ordering Physician: Juan Broussard Referring Physician: Juan Broussard Chi Performed By: Doreen Iverson RVT, RDCS and Student
== END ==
PROVIDERS: Family Provider Family Medicine Geriatric Medicine; PCP Family Medicine Geriatric Medicine; Referring Provider Family Medicine Geriatric Medicine; Visit Provider Family Medicine Geriatric Medicine
DX: R60.0 Localized edema (principal)
CPT/HCPCS: 93970

== ENCOUNTER → 2018-08-25 12:02 | Outpatient (CLI) | payer MEDICARE, MEDICAID, SELFPAY ==
[2018-08-25 12:26] LABS: Absolute Lymphocyte Count 1.82 X10^3/ul (0.83-4.51); Absolute Neutrophil Count 8.6 X10^3/uL (2.0-7.7); Basophil# 0.03 X10^3/uL; Basophil% 0.3 % (0-1); Eosinophils% 5.1 % (0-5); Hematocrit 44.1 % (37-47); Hemoglobin 13.8 g/dl (12.0-15.0); Lymphocyte # 1.82 X10^3/ul (4.0); Lymphocyte % 15.3 % (19-41); Mean Corp Hgb Conc 31.3 g/gl (32-36); Mean Corpuscular Hgb 28.5 pg (27.0-32.0); Mean Corpuscular Volume 91.1 fL (81-99); Mean Platelet Vol. 10.9 fl (6.2-12.0); Monocyte# 0.79 X10^3/uL; Monocyte% 6.7 % (0-10); Neutrophil # 8.58 X10^3/uL (2.7-7.7); Neutrophil % 72.3 % (47-70); Platelet Count 210 K/mm3 (150-450); RBC Distribution Width CV 13.5 % (11.6-14.6); RBC Distribution Width SD 44.4 fl (35.1-43.9); Red Blood Count 4.84 M/mm3 (4.2-5.4); White Blood Count 11.9 K/mm3 (4.4-11.0)
[2018-08-25 12:30] LABS: POSITIVE COUNT NO; POSITIVE DIFFERENTIAL NO; POSITIVE MORPHOLOGY NO
[2018-08-25 12:43] LABS: BUN 17 mg/dL (7-18); Creatinine, Serum 0.74 mg/dL (0.55-1.02); EST Glomerular Filtration Rate 81 mL/min (>60); Glucose 123 mg/dL (74-106)
[2018-08-25 12:44] LABS: Anion Gap 9 (5-15); Calcium,Total 9.2 mg/dL (8.5-10.1); Chloride 107 mmol/L (98-107); Est Glom Filt Rate - Afr Amer 98 mL/min (>60); Potassium 3.6 mmol/L (3.5-5.1); Sodium Level 143 mmol/L (136-145)
[2018-08-25 12:48] LABS: Lactic Acid 1.9 mmol/L (0.4-2.0)
== END ==
PROVIDERS: Family Provider Family Medicine Geriatric Medicine; PCP Family Medicine Geriatric Medicine; Referring Provider Family Medicine Geriatric Medicine; Visit Provider Family Medicine Geriatric Medicine
DX: A41.2 Sepsis due to unspecified staphylococcus (principal)
CPT/HCPCS: 36415; 80048; 83605; 85025; 87086

== ENCOUNTER → 2018-10-11 09:54 | Outpatient (CLI) | payer MEDICARE, SELFPAY ==
[2018-10-11 12:33] LABS: Absolute Lymphocyte Count 1.99 X10^3/ul (0.83-4.51); Absolute Neutrophil Count 6.7 X10^3/uL (2.0-7.7); Basophil# 0.04 X10^3/uL; Basophil% 0.4 % (0-1); Eosinophil# 0.28 X10^3/uL; Eosinophils% 2.8 % (0-5); Hematocrit 45.1 % (37-47); Hemoglobin 13.9 g/dl (12.0-15.0); Lymphocyte # 1.99 X10^3/ul (4.0); Lymphocyte % 20.2 % (19-41); Mean Corp Hgb Conc 30.8 g/gl (32-36); Mean Corpuscular Hgb 28.1 pg (27.0-32.0); Mean Corpuscular Volume 91.3 fL (81-99); Mean Platelet Vol. 11.6 fl (6.2-12.0); Monocyte# 0.84 X10^3/uL; Monocyte% 8.5 % (0-10); Neutrophil # 6.71 X10^3/uL (2.7-7.7); Platelet Count 201 K/mm3 (150-450); RBC Distribution Width CV 14.1 % (11.6-14.6); RBC Distribution Width SD 47.3 fl (35.1-43.9); Red Blood Count 4.94 M/mm3 (4.2-5.4); White Blood Count 9.9 K/mm3 (4.4-11.0)
[2018-10-11 12:41] LABS: POSITIVE COUNT NO; POSITIVE DIFFERENTIAL NO; POSITIVE MORPHOLOGY NO
[2018-10-11 12:49] LABS: Vitamin D,25 Hydroxy 37.8 ng/mL (29.95-100.01)
[2018-10-11 12:59] LABS: ALB/GLOB Ratio 0.7 RATIO (0.9-2.4); AST(SGOT) 56 U/L (15-37); Alanine Aminotransfer ALT/SGPT 49 U/L (13-56); Albumin, Serum 3.4 g/dL (3.2-5.0); Alkaline Phosphatase 126 U/L (45-117); Anion Gap 9 (5-15); BUN 16 mg/dL (7-18); BUN/Creat Ratio 20.3 RATIO (10-20); Calcium,Total 8.9 mg/dL (8.5-10.1); Chloride 105 mmol/L (98-107); Creatinine, Serum 0.79 mg/dL (0.55-1.02); EST Glomerular Filtration Rate 75 mL/min (>60); Est Glom Filt Rate - Afr Amer 91 mL/min (>60); Glucose 107 mg/dL (74-106); Potassium 3.5 mmol/L (3.5-5.1); Protein, Total 8.4 g/dL (6.4-8.2); Sodium Level 143 mmol/L (136-145); Thyroid Stim Hormone (TSH) 2.07 uIU/mL (0.358-3.74)
== END ==
PROVIDERS: Family Provider Family Medicine Geriatric Medicine; PCP Family Medicine Geriatric Medicine; Visit Provider Family Medicine Geriatric Medicine
DX: E55.9 Vitamin D deficiency, unspecified (principal); I10 Essential (primary) hypertension
CPT/HCPCS: 36415; 80053; 82306; 84443; 85025

== ENCOUNTER 2019-02-06 14:00 | Outpatient (RCR) | payer MEDICARE, SELFPAY ==
--- NOTE | 2018-11-21 13:52 | HP.OTEVAL_ITS ---
Patient's Visit Information BC MATTSON is a 78 year old F, referred to Occupational Therapy by MERLINE Michaels, with a diagnosis of CVA- R sided weakness. Date of Evaluation: 11/21/18 Occupational Therapist: Aissatou Masters - Subjective Subjective: Pt seen for initial occupational therapy evaluation for R sided weakness after CVA 11/04/17. Pt was at [facility] for 3 days then transferred to [facility] for rehab for a few months. Lives in apartment all one level, no steps to enter. Does not drive. AMB with rollator, has cane at home but doesn't feel safe with cane so uses rollator. Home health aides 3x/wk to assist with baths, meal prep and laundry tasks. Daughter local to assist pt as needed. Tub/shower combo, ETB, grab bars, hand held shower head, std toilet seats. Has BSC available but doesn't use. Does have department supervisor to assist wtih grabbing things outside base or support. Sleeps in regular bed, has lift chair, but doesn't use the lift mechanism. Right handed. Pt able to complete simple meal prep and dressing tasks on her own. Pt reports able to complete simple things on her own. Pt would like to be able to functionally use R hand to assist with brushing her hair and putting earrings in. - Objective Objective/Observation: Pt demo decreased functional use of R UE and R hand slitting machine feeder strength with limited AROM R UE. - ROM Shoulder: R 54' AROM shoulder flexion Elbow: R -30 AROM extension Wrist: R 30/34 L 75/68 ROM Comments: Limited AROM R hand - Strength School Leader: R 5#, L 35# Lateral Pinch: R 0#, L 4# Tripod Pinch: R 0#, L 4# Strength Comments: Decreased strength R hand. MMT R UE 3/5, L UE 3+/5 - Edema Other: slight edema noted R hand and wrist - Sensation Sensation Comments: Pt states no numbness or tingling - Quick DASH-Disab of Arm,Shoulder& Hand Quick DASH Score: 59.0900 - Goals Goal:: Pt will progress w/ R hand slitting machine feeder strength to assist with carrying shopping bag independently by 20# by d/c from OT services. Pt will progress w/ R UE MMT to 4/5 to assist with holding hair brush and keeping R arm up to don earrings independently by d/c from OT services. Goal:: Pt will progress w/ R elbow extension AROM from -30' extension to -10 to assist with BADLs with less assistance needed. Pt will progress w/ R AROM wrist flexion by 30' to assist with BADLs by d/c from OT services. Goal:: Pt will be able to use adaptive techniques or adaptive equipment to assist with brushing and styling hair independently. Goal:: Pt will be educated on R UE HEP with good understanding and demo 100%x - Rehabilitation General Assessment: Pt demo R UE weakness with limited AROM R UE indicating a need for skilled OT interventions to increase R UE AROM and strength to assist with BADLs, educate on R UE HEP and educate on adaptive techniques to increase independence with grooming tasks to increase pt's quality of life. Rehabilitation Potential: Good - Anticipated Interventions Anticipated Interventions: A/AAROM/PROM, Strengthening, Edema Control, Massage, Modalities, Joint Protection/Energy Conservation, Fine Motor Coord/Rogers, Neuro Reeducation, ADL Training, Education re assistive Equipment, Education re Diagnosis, Education re Self Massage Techniques, Home Program - Visit Plan Frequency: 1-2x /Week Duration: 6 Weeks General Plan: increase R UE AROM and strength to assist with BADLs, educate on R UE HEP and educate on adaptive techniques to increase independence with grooming tasks to increase pt's quality of life 1-2x/wk 6wks TEXT: Thank you for the opportunity to evaluate your patient. For Medicare and Medicare HMO plans, please review the plan of care and approve it. It will need to be FAXED BACK to us at [phone] for Medicare purposes. Please let me know if there are questions or concerns regarding this plan of care. Physician Signature: Date:
--- NOTE | 2018-12-04 15:17 | HP.PTEVAL_ITS ---
Patient's Visit Information BC MATTSON is a 78 year old F referred to Physical Therapy by MERLINE Michaels with a diagnosis of CVA, L sided weakness. Date of Evaluation: 11/21/18 Physical Therapist: Serge Sherwood DPT - Visit Plan Frequency: 2x /Week Duration: 4-6 Weeks Plan: Start with BLE strengthening, balance exercises, gait progression. PRogres to HEP as able. - Subjective Findings: Pt. is here today for her initial evaluation with diagnosis of CVA and weakness. Pt. had a CVA mulitple years ago with R sided weakness. Pt. has been walking with a rollator, with out her brace I can not get it on. Pt. reports no pain, but is concerned about her ability to ambulated. Pt. reports increased overall difficulty for the past 6 months. Pt. reports no recent falls. She reports BLE weakness limiting her ambulation. Pt. is able to walk at home, lives in adult living apartments. Pt. walks down to rec room ~250ft. but is wiped for the day. Pt. is hopeful to increase her general strength and ambulation to i ncrease functional mobility in home and community. - Objective POSTURE: Pt. has generalized flexed posture. Pt. has icnreased L lateral wt. shift. Pt. requires balance aide to maintain stability in stance. PALPATION: Pt. has no pain with palpation throughout bilateral LEs. NEURO: PT. has normal sensation throughout bilateral LEs. Pt. has 2+ DTR of LLE, but 3+ patellar DTR of RLE. Pt. is unable to rise on heels and toes. FGA- . ROM: pt. has normal ROM of BLEs, tightness noted with bilateral HS and hip flexors. Pt. has tight calves bilaterally as well. MMT: LLE 4+/5 throughout. RLE- ankle DF 3-/5, 4/5 throughout rest of ankle; knee- ext 4-/5, flexion 4/5; hip- 4-/5 throughout. GAIT: Pt. ambulates with rollator. Pt. has enough R foot clearance with ambulat ion, but barely. pt. has increased R hip flexion to compensate her movement. Pt. has slight circumduction as well. Pt. has decreased tempo and increased R lateral hip translation during stance phase. Pt. has increased R knee hyper ext during stance phase as well. - Goals Goal 1:: Pt. to be I with HEP. Goal Time Frame: 4-6 Weeks Goal 2:: Pt. to have increased BLE strength by 1/2 grade of all effected musculature. Goal Time Frame: 4-6 Weeks Goal 3:: Pt. to have increased FGA to 18/30 indicating reduce risk for future falls. Goal Time Frame: 4-6 Weeks Goal 4:: Pt. to ambulate 500+ ft. with FWW DEEP allowing for increased functional mobility with in community. Goal Time Frame: 4-6 Weeks Goal 5:: Pt. to have increased HS length of B HS by25% allowing for decreased LE pain. Goal Time Frame: 4-6 Weeks - Rehabilitation Potential Physical Therapy Diagnosis: Pt. has signs and symptoms of L sided weakness after CVA ~1 year ago. Pt. has increased difficulty with walking, L LE and UE weakness. Pt. would benefit from PT to increase BLE strengthening, gait, and balance to increase general mobility and safety with functional moblity. Rehabilitation Potential: Fair - Anticipated Interventions Patient/Client Instruction: Educate patient on: Condition, Plan of Care, Risk Factors, Benefits of Fitness Program For the Purpose of:: To foster healthy habits, To improve decision making, To facilitate caregiver knowledge, To improve self management, To prevent re- injury, To improve ability to perform tasks related to life management, To improve tolerance to ADL's Therapeutic Exercise to Include: Strength training, Power training, Endurance training, Balance training, Postural training, Flexibilty training, Gait and locomotor training, Passive ROM, Active ROM, Dynamic Lumbar Stabilization For the Purpose of:: To decrease swelling/inflammation, To increase ROM, To improve nutrient delivery to tissue, To increase oxygenation perfusion, To improve muscle performance and motor function, To improve gait and locomotor functions, To improve health of tissue, To decrease soft tissue restriction, To increase flexibility/ROM, To improve endurance, To improve balance Thank you for the opportunity to evaluate your patient. For Medicare and Medicare HMO plans, please review the plan of care and approve it. It will need to be FAXED BACK to us at [phone] for Medicare purposes. For Medicare only, by signing this I certify the plan of care. Please let me know if there are questions or concerns regarding this plan of care. Physician Signature: Date:
--- NOTE | 2018-12-26 08:54 | HP.PTREVAL_ITS ---
Adriana Amaral, ANDRIY-C, It has been my pleasure to treat BC MATTSON over the last 6 visits for CVA, L sided weakness. Please see the progress note below for an update on the physical therapy plan of care! Subjective: Pt. reports I am doing well today, but I still have trouble walking around. She reports wanting to walk with cane if possible. Pt. reports being able to put her AFO on by her self now. No falls since starting PT. Objective/Function: Pt. was able to complete TUG with cane 28sec. Pt. required COMMUTATOR TESTER to complete. Pt. is able to ambulate with FWW DEEP without LOB, but has reduced lacy. Pt. ambulated 350' with FWW this date. MMT: LLE 4+/5 throughout. RLE- ankle DF 3-/5, 4/5 throughout rest of ankle; knee- ext 4-/5, flexion 4/5; hip- 4-/5 throughout. GAIT: Pt. is able to wear her AFO which improves her foot clearance, but still has trouble especially with thresholds. FGA 16/30- improving. Plan Plan: I would recommend pt. to continue with the current POC with focus on BLE strengthening, balance and gait. Pt. would like to attempt to progress to quad cane to use in home. Goals Goal 1:: Pt. to be I with HEP. Goal Time Frame: 4-6 Weeks Goal Progress: Progressing Goal 2:: Pt. to have increased BLE strength by 1/2 grade of all effected musculature. Goal Time Frame: 4-6 Weeks Goal Progress: Progressing Goal 3:: Pt. to have increased FGA to 18/30 indicating reduce risk for future falls. Goal Time Frame: 4-6 Weeks Goal 4:: Pt. to ambulate 500+ ft. with FWW DEEP allowing for increased functional mobility with in community. Goal Time Frame: 4-6 Weeks Goal Progress: Progressing Goal 5:: Pt. to have increased HS length of B HS by25% allowing for decreased LE pain. Goal Time Frame: 4-6 Weeks Goal Progress: Progressing Anticipated Interventions Patient/Client Instruction: Educate patient on: Condition, Plan of Care, Risk Factors, Benefits of Fitness Program For the Purpose of:: To foster healthy habits, To improve decision making, To facilitate caregiver knowledge, To improve self management, To prevent re- injury, To improve ability to perform tasks related to life management, To improve tolerance to ADL's Therapeutic Exercise to Include: Strength training, Power training, Endurance training, Balance training, Postural training, Flexibilty training, Gait and locomotor training, Passive ROM, Active ROM, Dynamic Lumbar Stabilization For the Purpose of:: To decrease swelling/inflammation, To increase ROM, To improve nutrient delivery to tissue, To increase oxygenation perfusion, To improve muscle performance and motor function, To improve gait and locomotor functions, To improve health of tissue, To decrease soft tissue restriction, To increase flexibility/ROM, To improve endurance, To improve balance Please do not hesitate to contact me at [phone] by phone or if you have questions or concerns regarding this new plan of care! Sincerely, Serge Sherwood DPT
--- NOTE | 2019-01-04 15:37 | OTREVAL_ITS ---
Adriana Amaral, FOOD SERVICE SPECIALIST-C, It has been my pleasure to treat BC MATTSON over the last 9 visits for CVA- R sided weakness. Please see the progress note below for an update on the occupational therapy plan of care! Subjective: Pt states no pain. Pt states PT wore her out today, she had to walk fast. Pt states she has been doing a lot of crochetting and bicep curls, occassionally completing R UE HEP with theraputty Objective/Function: 10th visit and recertification 15 min Pt progressing with her OT. Pt R wrist extension has progressed 30 to 40 degrees and R wrist flexion has progressed from 34' to 70'. Pt's R elbow extenson has progressed from -30 to -5 degrees. Pt has progressed with R UE generalized strength from 3/5 to 3+/5. Pt has progressed with R hand civil preparedness officer strength from 5# to 8 #. Pt now able to have the strength and ROM to don her earrings independently with extra time needed. Pt has been educated on RUE HEP with good understanding using yellow theraputty. Pt would benefit from continued direct occupational therapy services to increase her R UE generalized strength, R hand civil preparedness officer strength, AROM R UE and increase extension of R hand digits for functional living tasks. Pt would like to be able to don her jackets and sweaters independently. Recommend continued OT services 1-2x/wk x 4wks Plan Frequency: 1-2x /Week Duration: 4 Weeks Plan: cont with new POC Goals - Goals Goal:: Pt will progress w/ R hand civil preparedness officer strength to assist with carrying shopping bag independently by 20# by d/c from OT services. Pt will progress w/ R UE MMT to 4/5 to assist with holding hair brush and keeping R arm up to don earrings independently by d/c from OT services. Goal:: Pt will progress w/ R AROM wrist flexion by 30' to assist with BADLs by d/c from OT services. Goal:: Pt will be able to don her jacket and sweater independently in 3/4 trials. Goal:: Pt will be educated on neuro development techniques to complete at home to decrease tone with good understanding and demo 75%x. Goal:: Pt will be able to use adaptive techniques or adaptive equipment to assist with brushing and styling hair independently. Goal:: Pt will be educated on R UE HEP with good understanding and demo 100%x Anticipated Interventions Anticipated Interventions: A/AAROM/PROM, Strengthening, Edema Control, Massage, Modalities, Joint Protection/Energy Conservation, Fine Motor Coord/Rogers, Neuro Reeducation, ADL Training, Education re assistive Equipment, Education re Diagnosis, Education re Self Massage Techniques, Home Program Please do not hesitate to contact me at [phone] by phone or Fax: if you have questions or concerns regarding this new plan of care! Sincerely, Aissatou Masters
--- NOTE | 2019-02-06 15:14 | HP.OTDCSUM ---
HP - OT D/C Summary It has been my pleasure to treat BC MATTSON under orders from KENDRA MichaelsC, for the diagnosis of CVA- R sided weakness for a total of 15 visit(s). Please see the following information for a summary of their discharge status. - Overall Improvement % Improvement: 30 - Objective Objective/Function: Pt very down today, at one point became tearful and frustrated that her R hand doesn't work like it should. Educated pt on importance to keep working with R hand. - Goals Patient Goals: Regain Strength, Decrease Swelling/Stiffness, Improve Fine Motor Skills, Use Hand/Wrist/Arm Normally Again, Increase ROM, Be More Independent in ADLS, Resume Former Household Responsibilities (Cooking,Cleaning,Yard, etc.), Resume Hobbies Goal:: Pt will progress w/ R hand field support rep strength to assist with carrying shopping bag independently by 20# by d/c from OT services. Pt will progress w/ R UE MMT to 4/5 to assist with holding hair brush and keeping R arm up to don earrings independently by d/c from OT services. Goal:: Pt will progress w/ R AROM wrist flexion by 30' to assist with BADLs by d/c from OT services. Goal:: Pt will be able to don her jacket and sweater independently in 3/4 trials. Goal:: Pt will be educated on neuro development techniques to complete at home to decrease tone with good understanding and demo 75%x. Goal:: Pt will be able to use adaptive techniques or adaptive equipment to assist with brushing and styling hair independently. Goal:: Pt will be educated on R UE HEP with good understanding and demo 100%x - Plan Plan: d/c OT services this date. - D/C Information Discharge Comments: Pt educated on R UE HEP and NDT to complete at home. Pt demo good understanding. Pt able to don earrings on her own. Pt able to don/doff her own jackets and sweaters with extra time needed and educated on adaptive techniques and compensatory strategies for donning jackets and grooming tasks. Pt R hand field support rep strength 8#. Pt has progressed w/ R UE generalized strength to 4-/5. Pt AROM R wrist 40/70. Pt no longer requires skilled OT services. Pt d/c from OT at this time and demo good understanding with education on adaptive techkniques/compensatory strategies and R UE HEP with good understanding and demo. If there are questions or concerns regarding this patient's occupational therapy, please fell free to call me at [phone]. Thank you for the referral of this patient. Sincerely, Aissatou Masters
--- NOTE | 2019-03-14 14:14 | HP.PTDCSUM_ITS ---
HP - PT D/C Summary It has been my pleasure to treat BC MATTSON under orders from KENDRA MichaelsC, for the diagnosis of CVA, L sided weakness for a total of 13 visit(s). Discharge Date: 02/06/19 Please see the following information for a summary of their discharge status. - Subjective Subjective: Pt. reports I am getting around better. Pt. reports being HEP compliant. Pt. reports no recent falls. - Pain R knee Pain Intensity (Out of 10): 0 - Overall Improvement % Improvement: 85 - Objective Objective/Function: FGA ,. AMbulation- patient ambulated 750' with out LOB. Pt. requires increased time to complete, but has increased stability. No LOB noted. pt. reports no pain with ambulation. STAIRS: Pt. is able to negotiate with 1 HR with step to pattern. increased fatigue noted. TUG- 18.2 sec. - Goals Goal 1:: Pt. to be I with HEP. Goal Progress: Goal Met Goal 2:: Pt. to have increased BLE strength by 1/2 grade of all effected musculature. Goal Progress: Progressing Goal 3:: Pt. to have increased FGA to 18/30 indicating reduce risk for future falls. Goal Progress: Progressing Goal 4:: Pt. to ambulate 500+ ft. with FWW DEEP allowing for increased functiona l mobility with in community. Goal Progress: Goal Met Goal 5:: Pt. to have increased HS length of B HS by25% allowing for decreased LE pain. Goal Progress: Progressing - Plan Plan: Pt. to be DC to HEP at this point in time. - D/C Information Discharge Comments: Pt. ws treated for her general debility in PT after CVA. Pt. progressed with balance and gait. Pt. had increased gait and foot clearance, but continues to require increased time to complete. Pt. is currently independent with HEP for LE strengthening and balance. Pt. will be DC to HEP at this point intime. If there are questions or concerns regarding this patient's physical therapy, please feel free to call me at [phone]. Thank you for the referral of this patient. Sincerely, Serge Sherwood DPT
== END 2019-02-06 19:00 | disposition home or self-care (01) ==
LOC: PT 14:00
PROVIDERS: Family Provider Family Medicine Geriatric Medicine; PCP Family Medicine Geriatric Medicine; Referring Provider Nurse Practitioner Acute Care; Visit Provider Nurse Practitioner Acute Care
DX: I69.928 Other speech and language deficits following unspecified cerebrovascular disease (principal); G81.91 Hemiplegia, unspecified affecting right dominant side
CPT/HCPCS: 97110; 97112; 97162; 97165; 97166; 97168; 97530

== ENCOUNTER → 2019-02-14 | Outpatient (CLI) | payer MEDICARE, SELFPAY ==
--- NOTE | 2019-02-14 11:25 | RAD_ITS ---
STUDY: X-RAY - RIGHT KNEE REASON FOR EXAM: Knee pain, no specific injury. TECHNIQUE: 4 view(s) of the knee. COMPARISON: Radiographs 03/13/2018. FINDINGS: Normal visualized distal femur. Normal visualized proximal tibia and fibula. Normal proximal tibiofibular articulation. Normal medial femorotibial compartment. Normal lateral femorotibial compartment. Normal patellofemoral articulation. There is chondrocalcinosis in the lateral meniscus. There is a small patellar enthesophyte. There is vascular calcification. RAD/Knee 4 or More Views IMPRESSION: Chondrocalcinosis. Electronically Signed: Sherman Pradhan MD at 16:02 EDT Tel , Service support ,
[2019-02-14 12:55] LABS: Erythrocyte Sedimentation Rate 21 mm/hr (0-30)
[2019-02-14 12:56] LABS: Absolute Lymphocyte Count 1.63 X10^3/ul (0.83-4.51); Absolute Neutrophil Count 3.8 X10^3/uL (2.0-7.7); Basophil# 0.04 X10^3/uL; Basophil% 0.6 % (0-1); Eosinophil# 0.27 X10^3/uL; Eosinophils% 4.3 % (0-5); Hematocrit 43.9 % (37-47); Hemoglobin 14.1 g/dl (12.0-15.0); Lymphocyte # 1.63 X10^3/ul (4.0); Lymphocyte % 25.8 % (19-41); Mean Corp Hgb Conc 32.1 g/gl (32-36); Mean Corpuscular Hgb 29.1 pg (27.0-32.0); Mean Corpuscular Volume 90.5 fL (81-99); Mean Platelet Vol. 12.2 fl (6.2-12.0); Monocyte# 0.56 X10^3/uL; Monocyte% 8.8 % (0-10); Neutrophil # 3.82 X10^3/uL (2.7-7.7); Neutrophil % 60.3 % (47-70); Platelet Count 185 K/mm3 (150-450); RBC Distribution Width CV 14.6 % (11.6-14.6); RBC Distribution Width SD 47.6 fl (35.1-43.9); Red Blood Count 4.85 M/mm3 (4.2-5.4); White Blood Count 6.3 K/mm3 (4.4-11.0)
[2019-02-14 12:59] LABS: POSITIVE COUNT NO; POSITIVE DIFFERENTIAL NO; POSITIVE MORPHOLOGY NO
[2019-02-14 13:03] LABS: Anion Gap 9 (5-15); BUN 10 mg/dL (7-18); BUN/Creat Ratio 12.5 RATIO (10-20); CRP 7.61 mg/L (0.0-3.0); Calcium,Total 9.3 mg/dL (8.5-10.1); Chloride 105 mmol/L (98-107); EST Glomerular Filtration Rate 74 mL/min (>60); Est Glom Filt Rate - Afr Amer 90 mL/min (>60); Glucose 137 mg/dL (74-106); Potassium 3.8 mmol/L (3.5-5.1); Sodium Level 142 mmol/L (136-145)
== END | disposition home or self-care (01) ==
PROVIDERS: Family Provider Family Medicine Geriatric Medicine; PCP Family Medicine Geriatric Medicine; Referring Provider Family Medicine Geriatric Medicine; Visit Provider Family Medicine Geriatric Medicine
DX: M10.9 Gout, unspecified (principal); M25.561 Pain in right knee
CPT/HCPCS: 36415; 73564; 80048; 84550; 85025; 85652; 86140

== ENCOUNTER → 2019-04-11 | Outpatient (CLI) | payer MEDICARE, SELFPAY ==
[2019-04-11 17:12] LABS: Absolute Lymphocyte Count 2.39 X10^3/ul (0.83-4.51); Absolute Neutrophil Count 4.8 X10^3/uL (2.0-7.7); Basophil# 0.05 X10^3/uL; Basophil% 0.6 % (0-1); Eosinophil# 0.23 X10^3/uL; Eosinophils% 2.8 % (0-5); Hematocrit 43.8 % (37-47); Hemoglobin 14.2 g/dl (12.0-15.0); Lymphocyte # 2.39 X10^3/ul (4.0); Lymphocyte % 28.6 % (19-41); Mean Corp Hgb Conc 32.4 g/gl (32-36); Mean Corpuscular Hgb 29.5 pg (27.0-32.0); Mean Corpuscular Volume 91.1 fL (81-99); Mean Platelet Vol. 11.5 fl (6.2-12.0); Monocyte# 0.82 X10^3/uL; Monocyte% 9.8 % (0-10); Neutrophil # 4.83 X10^3/uL (2.7-7.7); Neutrophil % 57.8 % (47-70); Platelet Count 184 K/mm3 (150-450); RBC Distribution Width CV 14.7 % (11.6-14.6); RBC Distribution Width SD 48.8 fl (35.1-43.9); Red Blood Count 4.81 M/mm3 (4.2-5.4); White Blood Count 8.4 K/mm3 (4.4-11.0)
[2019-04-11 17:15] LABS: POSITIVE COUNT NO; POSITIVE DIFFERENTIAL NO; POSITIVE MORPHOLOGY NO
[2019-04-11 17:29] LABS: Vitamin D,25 Hydroxy 28.2 ng/mL (29.95-100.01)
[2019-04-11 17:30] LABS: ALB/GLOB Ratio 0.6 RATIO (0.9-2.4); AST(SGOT) 73 U/L (15-37); Alanine Aminotransfer ALT/SGPT 62 U/L (13-56); Albumin, Serum 3.4 g/dL (3.2-5.0); Alkaline Phosphatase 156 U/L (45-117); Anion Gap 9 (5-15); BUN 13 mg/dL (7-18); BUN/Creat Ratio 17.9 RATIO (10-20); Chloride 106 mmol/L (98-107); Creatinine, Serum 0.73 mg/dL (0.55-1.02); EST Glomerular Filtration Rate 82 mL/min (>60); Est Glom Filt Rate - Afr Amer 99 mL/min (>60); Globulin 5.3 g/dL (2.2-4.2); Glucose 94 mg/dL (74-106); Potassium 3.9 mmol/L (3.5-5.1); Protein, Total 8.7 g/dL (6.4-8.2); Sodium Level 143 mmol/L (136-145); Thyroid Stim Hormone (TSH) 2.26 uIU/mL (0.358-3.74)
== END | disposition home or self-care (01) ==
PROVIDERS: Family Provider Family Medicine Geriatric Medicine; PCP Family Medicine Geriatric Medicine; Visit Provider Family Medicine Geriatric Medicine
DX: I10 Essential (primary) hypertension (principal); E55.9 Vitamin D deficiency, unspecified
CPT/HCPCS: 36415; 80053; 82306; 84443; 85025

== ENCOUNTER → 2019-05-17 | Outpatient (CLI) | payer MEDICARE, SELFPAY ==
[2019-05-17 10:34] LABS: ALB/GLOB Ratio 0.7 RATIO (0.9-2.4); AST(SGOT) 64 U/L (15-37); Alanine Aminotransfer ALT/SGPT 50 U/L (13-56); Albumin, Serum 3.3 g/dL (3.2-5.0); Alkaline Phosphatase 145 U/L (45-117); Anion Gap 8 (5-15); BUN 11 mg/dL (7-18); BUN/Creat Ratio 13.6 RATIO (10-20); Chloride 106 mmol/L (98-107); Creatinine, Serum 0.81 mg/dL (0.55-1.02); EST Glomerular Filtration Rate 73 mL/min (>60); Est Glom Filt Rate - Afr Amer 88 mL/min (>60); Glucose 180 mg/dL (74-106); Potassium 3.7 mmol/L (3.5-5.1); Protein, Total 8.3 g/dL (6.4-8.2); Sodium Level 143 mmol/L (136-145)
== END | disposition home or self-care (01) ==
LOC: LAB.FUTURE 09:34
PROVIDERS: Family Provider Family Medicine Geriatric Medicine; PCP Family Medicine Geriatric Medicine; Referring Provider Family Medicine Geriatric Medicine; Visit Provider Family Medicine Geriatric Medicine
DX: K76.9 Liver disease, unspecified (principal)
CPT/HCPCS: 36415; 80053

== ENCOUNTER → 2019-07-05 | Outpatient (CLI) | payer MEDICARE, SELFPAY ==
[2019-07-05 12:15] LABS: Absolute Lymphocyte Count 1.71 X10^3/uL (0.83-4.51); Absolute Neutrophil Count 3.6 X10^3/uL (2.0-7.7); Basophil# 0.04 X10^3/uL; Basophil% 0.6 % (0-1); Eosinophil# 0.32 X10^3/uL; Eosinophils% 5.2 % (0-5); Hematocrit 45.3 % (37-47); Hemoglobin 14.5 g/dL (12.0-15.0); Lymphocyte # 1.71 X10^3/ul (4.0); Lymphocyte % 27.5 % (19-41); Mean Corpuscular Hgb 29.5 pg (27.0-32.0); Mean Corpuscular Volume 92.3 fL (81-99); Mean Platelet Vol. 11.2 fl (6.2-12.0); Monocyte# 0.52 X10^3/uL; Monocyte% 8.4 % (0-10); NRBC Flagged by Analyzer 0 % (0-5); Neutrophil # 3.59 X10^3/uL (2.7-7.7); Neutrophil % 57.8 % (47-70); Platelet Count 186 K/mm3 (150-450); RBC Distribution Width CV 13.4 % (11.6-14.6); RBC Distribution Width SD 45.5 fl (35.1-43.9); Red Blood Count 4.91 M/mm3 (4.2-5.4); White Blood Count 6.2 K/mm3 (4.4-11.0)
[2019-07-05 12:34] LABS: Vitamin D,25 Hydroxy 22.1 ng/mL (29.95-100.01)
[2019-07-05 12:39] LABS: ALB/GLOB Ratio 0.7 RATIO (0.9-2.4); AST(SGOT) 78 U/L (15-37); Alanine Aminotransfer ALT/SGPT 53 U/L (13-56); Albumin, Serum 3.5 g/dL (3.2-5.0); Alkaline Phosphatase 135 U/L (45-117); Anion Gap 9 (5-15); BUN 9 mg/dL (7-18); BUN/Creat Ratio 10.8 RATIO (10-20); Chloride 107 mmol/L (98-107); Creatinine, Serum 0.84 mg/dL (0.55-1.02); EST Glomerular Filtration Rate 70 mL/min (>60); Est Glom Filt Rate - Afr Amer 85 mL/min (>60); Globulin 5.2 g/dL (2.2-4.2); Glucose 131 mg/dL (74-106); Potassium 3.8 mmol/L (3.5-5.1); Protein, Total 8.7 g/dL (6.4-8.2); Sodium Level 143 mmol/L (136-145); Thyroid Stim Hormone (TSH) 3.55 uIU/mL (0.358-3.74); Uric Acid 5.8 mg/dL (2.6-6.0)
== END | disposition home or self-care (01) ==
LOC: POLAB3 08:43
PROVIDERS: Family Provider Family Medicine Geriatric Medicine; PCP Family Medicine Geriatric Medicine; Visit Provider Family Medicine Geriatric Medicine
DX: E55.9 Vitamin D deficiency, unspecified (principal); I10 Essential (primary) hypertension; M10.9 Gout, unspecified
CPT/HCPCS: 36415; 80053; 82306; 84443; 84550; 85025

== ENCOUNTER 2019-08-17 11:40 | Inpatient (IN) | payer MEDICARE, SELFPAY ==
[2019-08-17] VITALS (9 sets, daily range): BP systolic 99–162; BP diastolic 59–82; PULSE 67–95; RESP 16–19; TEMP 36.6; O2SAT 92–98; BMI 29.9
--- NOTE | 2019-08-17 11:41 | CT_ITS ---
STUDY: CT BRAIN WITHOUT CONTRAST REASON FOR EXAM: Female, 79 years old. Altered mental status, history of stroke. RADIATION DOSAGE (If Supplied By Facility): CTDIvol = ( 60.81 ) mGy, DLP = ( 1021.47 ) mGycm TECHNIQUE: Transaxial CT imaging of the brain was performed without administration of intravenous contrast material. Individualized dose optimization techniques were used for this CT. COMPARISON: 07/10/2018 FINDINGS: Normal soft tissue structures. Normal calvarium. There is moderate cerebral atrophy with widening of the extra-axial spaces and ventricular dilatation. There are areas of decreased attenuation within the white matter tracts of the supratentorial brain, consistent with microvascular disease changes. Chronic lacunar infarct of right thalamus. Normal brainstem. Normal cerebellum. There is no intracranial hemorrhage. There are no findings of an acute ischemic infarction. Normal visualized paranasal sinuses. CT/Brain/Head without Contrast IMPRESSION: Chronic involutional changes of the brain. Electronically Signed: Marco Hurtado MD at 12:09 EDT Tel , Service support ,
--- NOTE | 2019-08-17 12:23 | RAD_ITS ---
STUDY: X-RAY CHEST REASON FOR EXAM: Female, 79 years old. Hypoxia TECHNIQUE: Single AP portable view of the chest. COMPARISON: 07/10/2018 FINDINGS: The lungs are clear and expanded. There is no demonstrated pleural abnormality. Normal size heart. Normal mediastinum and анна. Normal visualized pulmonary arteries. There is atherosclerotic calcification of the aortic arch with tortuosity. Normal visualized thoracic spine. Normal visualized ribs, clavicles, and shoulders. There is no demonstrated abnormality of the visualized soft tissue structures of the upper abdomen. RAD/Chest 1 View IMPRESSION: No active disease. Electronically Signed: Marco Hurtado MD at 12:49 EDT Tel , Service support ,
--- NOTE | 2019-08-17 12:23 | EKG12_ITS ---
Test Reason : NEURO S/SX Blood Pressure : / mmHG Vent. Rate : 088 BPM Atrial Rate : 088 BPM P-R Int : 200 ms QRS Dur : 072 ms QT Int : 370 ms P-R-T Axes : 054 -31 -13 degrees QTc Int : 447 ms Normal sinus rhythm Left axis deviation Low voltage QRS Inferior infarct (cited on or before 10-JUL-2018), age undetermined Cannot rule out Anterior infarct , age undetermined Abnormal ECG Confirmed by SINGH NERI, SKINNY ([id number]), city editor KARL CHEEMA ([id number]) on 08/22/2019 9:42:09 A M Referred By: Delisa Rivera Confirmed By:MYNOR WINTERS MD
[2019-08-17 12:50] LABS: Absolute Lymphocyte Count 1.52 X10^3/uL (0.83-4.51); Absolute Neutrophil Count 4.9 X10^3/uL (2.0-7.7); Basophil# 0.06 X10^3/uL; Basophil% 0.8 % (0-1); Eosinophil# 0.18 X10^3/uL; Eosinophils% 2.5 % (0-5); Hematocrit 45.3 % (37-47); Hemoglobin 14.5 g/dL (12.0-15.0); Lymphocyte # 1.52 X10^3/ul (4.0); Lymphocyte % 20.9 % (19-41); Mean Corpuscular Volume 90.6 fL (81-99); Mean Platelet Vol. 11.9 fl (6.2-12.0); Monocyte# 0.57 X10^3/uL; Monocyte% 7.9 % (0-10); NRBC Flagged by Analyzer 0 % (0-5); Neutrophil # 4.91 X10^3/uL (2.7-7.7); Neutrophil % 67.6 % (47-70); Platelet Count 178 K/mm3 (150-450); RBC Distribution Width CV 13.9 % (11.6-14.6); RBC Distribution Width SD 46.3 fl (35.1-43.9); White Blood Count 7.3 K/mm3 (4.4-11.0)
[2019-08-17 12:57] LABS: International Normalized Ratio 1.1; Prothrombin Time (Protime)PT. 13.7 SECONDS (11.7-14.9)
[2019-08-17 12:58] LABS: Partial Thromboplast Time 34.2 Seconds (24.1-36.2)
[2019-08-17 13:04] LABS: Anion Gap 9 (5-15); BUN 14 mg/dL (7-18); BUN/Creat Ratio 11.8 RATIO (10-20); Calcium,Total 9.5 mg/dL (8.5-10.1); Chloride 107 mmol/L (98-107); Creatinine, Serum 1.19 mg/dL (0.55-1.02); EST Glomerular Filtration Rate 47 mL/min (>60); Est Glom Filt Rate - Afr Amer 56 mL/min (>60); Estimated Creatinine Clearance 33.64 ml/min; Glucose 180 mg/dL (74-106); Potassium 3.9 mmol/L (3.5-5.1); Sodium Level 142 mmol/L (136-145)
[2019-08-17 13:26] LABS: Lactic Acid 2.2 mmol/L (0.4-2.0)
[2019-08-17 13:39] LABS: Bacteria 0 SEEN /hpf (None Seen); Mucous, Urine 0 SEEN /hpf (<or=2+); Red Blood Cells-Urine 0 SEEN /hpf (0-5); Squamous Epithelial Cells - UA 0 SEEN /hpf (5-10); White Blood Cells 0 SEEN /hpf (0-5)
[2019-08-17 13:41] LABS: Color, Urine Yellow (Yellow); Glucose, Dipstick Normal (Normal); Ketone-Dipstick Negative (Negative); Leukocyte Esterase-Dipstick Negative /ul (Negative); Nitrite-Dipstick Negative (Negative); Occult Blood-Urine Negative /ul (Negative); Protein-Dipstick Negative (Negative); Urine Bilirubin Dipstick Negative (Negative); Urine Clarity Clear (Clear); Urine Urobilinogen Normal (Normal)
--- NOTE | 2019-08-17 14:05 | CT_ITS ---
STUDY: CTA HEAD AND NECK WITH CONTRAST REASON FOR EXAM: Female, 79 years old. Stroke RADIATION DOSAGE (If Supplied By Facility): CTDIvol = ( 17.28 ) mGy, DLP = ( 660.97 ) mGycm TECHNIQUE: CT angiography was performed with a multi-detector CT scanner. Data acquisition was obtained from the skull base through the vertex following intravenous administration of IV Isovue 370 100. MIP images were reconstructed from the axial data set. Post-processing of the angiographic images was performed, with multiplanar reformation and 3D reconstruction. Individualized dose optimization techniques were used for this CT. COMPARISON: No relevant priors. FINDINGS: Normal bilateral petrous carotid arteries. There is calcified plaque formation of the right cavernous carotid artery, with a mild stenosis (less than 50%). There is calcified plaque formation of the left cavernous carotid artery, with a mild stenosis (less than 50%). Normal right A1 segments of the anterior cerebral artery. Normal left A1 segments of the anterior cerebral artery. Normal intact anterior communicating artery (ACOM). Normal bilateral A2 segments of the anterior cerebral arteries. Normal right M1 and M2 segments of the middle cerebral arteries, with a normal M1 bifurcation. Normal left M1 and M2 segments of the middle cerebral arteries, with a normal M1 bifurcation. Normal right posterior communicating artery (PCOM). Normal left posterior communicating artery (PCOM). Normal bilateral vertebral arteries. Normal basilar artery with a normal basilar bifurcation. The visualized bilateral superior cerebellar (SCA) arteries are normal. Normal bilateral P1, P2 and visualized P3 segments of the posterior cerebral arteries. There is no demonstrated aneurysm of the [place]. There is no demonstrated abnormality of the visualized brain. AORTIC ARCH: Normal visualized aortic arch. Normal origins of the brachiocephalic, left common carotid, and left subclavian arteries. RIGHT CAROTID ARTERIES: Normal right common carotid artery (CCA). Normal right common carotid bulb. There is extensive atherosclerotic plaque formation of the origin of the right internal carotid artery with an estimated stenosis of greater than 70%. Normal visualized cervical portion of the right internal carotid artery. Normal origin of the right external carotid artery (ECA). LEFT CAROTID ARTERIES: Normal left common carotid artery (CCA). Normal left common carotid bulb. There is a left carotid stent which appears patent. There is moderate (50%) narrowing of the diameter of the stent at the origin of the external carotid artery likely secondary to focal tortuosity. Normal visualized cervical portion of the left internal carotid artery. Normal origin of the left external carotid artery (ECA). VERTEBRAL ARTERIES: Normal bilateral vertebral arteries. CT/CTA Head AND Neck W/ Contrast IMPRESSION: 1. Normal CTA Head 2. Severe (80%) (right carotid stenosis. 3. Left carotid stent which appears patent but with focal moderate (50%) narrowing at the origin of the external carotid artery likely from tortuosity. 4. Patent vertebral arteries bilaterally.. Electronically Signed: Marco Hurtado MD at 15:59 EDT Tel , Service support ,
[2019-08-17] MEDS: 0.9% Normal Saline 1,000 ML 999 ML IV (14:51)
[2019-08-17 16:46] LABS: Reflex Lactate? Y
--- NOTE | 2019-08-17 17:05 | HP.PCM_ITS ---
Problem List (1) Acute CVA (cerebrovascular accident) Status: Acute (2) History of CVA (cerebrovascular accident) Status: Chronic (3) HTN (hypertension) Status: Chronic Qualifiers: Hypertension type: essential hypertension Qualified Code(s): I10 - Essential (primary) hypertension (4) HLD (hyperlipidemia) Status: Chronic Qualifiers: Hyperlipidemia type: unspecified Qualified Code(s): E78.5 - Hyperlipidemia, unspecified (5) GERD (gastroesophageal reflux disease) Status: Chronic Qualifiers: Esophagitis presence: esophagitis presence not specified Qualified Code(s): K21.9 - Gastro-esophageal reflux disease without esophagitis History of Present Illness Date of Admission: 08/17/19 Chief Complaint: LLE Weakness, worsened R sided weakness The patient is a 79 y/o F w/ PMHx: Hx multiple CVA w/ R sided hemiplegia, HTN, HLD, Anxiety and Depression, GERD, Obesity who presents to the [facility] ED on 08/17/19 with history as noted of multiple prior strokes with noted evaluation last per family at 9:30 PM the day prior with onset since significant worsened lower extremity weakness including the left side as well as the right side with underlying right-sided hemiplegia but she notes this is worse than baseline with no paresthesias associated and no changes in her speech with chronically mildly slurred speech at baseline. Work-up in the ED included T 97.8, heart rate 95, BP initially 99/62 with improvement to 129/59 with IV fluids, respiratory rate 16, 92% on room air, unremarkable CBC, unremarkable coags, BMP with BUN/creatinine 14/1.19, glucose 180, lactic acid 2.2, troponin less than 0.015, urinalysis with no evidence of acute urinary tract infection specific gravity 1.010, CT brain with no acute intracranial findings, CTA head and neck with normal-appearing CTA head however noted severe 80% right carotid stenosis, left carotid stent patent but with focal moderate 50% narrowing at the origin of the external carotid artery likely tortuosity, patent vertebral arteries bilaterally, chest x-ray with no acute cardia pulmonary findings, EKG with no acute evidence of ischemia. In the ED patient ministered normal saline. In the emergency room patient with initial aggressive evaluation however following lengthy discussion with family their preference for patient not to be transferred for aggressive CVA rakesh luation. Patient and family with noted preference to investigate hospice transition with current status DNR CC, amenable to admission with plan to SNF transition with hospice. Past Medical History Past Medical History (Chronic Problems): Chronic Problems History of CVA (cerebrovascular accident) (Chronic) HTN (hypertension) (Chronic) HLD (hyperlipidemia) (Chronic) GERD (gastroesophageal reflux disease) (Chronic) Allergies latex Allergy (Verified 08/17/19 11:44) Swelling Home Medications: Ambulatory Orders Medication Instructions Recorded Clopidogrel Bisulfate [Plavix] 75 mg PO DAILY 06/07/18 Acetaminophen [Tylenol Tablet] 650 mg PO Q6H PRN PRN tablet 06/26/18 Aspirin E.C. 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 Tobacco Use: Non-smoker Alcohol: None Drugs: None - *Family History Maternal History Items: - - Notable maternal family history of diabetes. Paternal History Items: - - Notable paternal family history of heart disease, [place], diabetes. Review of Systems Constitutional: Reports: Anorexia, Malaise, Weakness, Fatigue. Denies: Chills, Fever, Weight Change HEENT: Reports: - - Chronically slurred speech.. Denies: Head Aches, Sinus Congestion, Sinus Drainage Cardiovascular: Denies: Chest Pain, Palpitations Respiratory: Denies: Cough, Shortness of breath at rest, Sputum production Gastrointestinal: Denies: Abdominal Pain, Nausea, Vomiting Genitourinary: Denies: Dysuria Musculoskeletal: Reports: Joint Pain. Denies: Joint Tenderness Skin: Denies: Rash, Wounds Neurological: Reports: Balance problems, Slurred speech, Focal weakness, Numbness, Tingling Psychiatric: Reports: Anxiety, Depression. Denies: Homicidal Ideations, Suicidal Ideations Hematologic/ Lymphatic: Reports: Easy Bruising, Easy Bleeding VTE Information - Inpt Only VTE Present on Admission: No VTE Mechan Device Prophylaxis: None VTE Pharm Prophylaxis ordered?: No Reason prophylaxis not ordered:: Hospice Care Subjective: Seated upright in ED bed, fatigued appearance, notes unchanged worsened right sided lower extremity as well as left lower extremity weakness. Objective: Physical Examination: General: awake, alert, oriented x 3 chronically stable slurred speech, remains cooperative, seated upright in the ED bed in no apparent distress. Skin: normal color, turgor, no icterus, cyanosis. HEENT: AT/NC, EOMI, PERRLA, dry MM, + L carotid bruit, no JVD noted. Lungs: CTA bilaterally, moderate effort, moderate decrease BL bases, no rales, ronchi or wheezing. Heart: Regular rate and rhythm; no gallop, rub audible. Abdomen: soft, obese, NTTP, ND, normal BS, no HSM. Extremities: no cyanosis, clubbing, or edema. Neurological: patient awake, alert, oriented x 3; cognitive function intact; pupils equally reactive to light and accomodation; cranial nerves II-XII grossly normal, moving all 4 extremities but limited given chronic R sided hemiplegia, more severe per patient report, L sided 3/5 strength, difficulty performing BL LE heel to castanon, worse R sided, FTN intact, sensation intact, equivocal babinski. Psychiatric: affect appears mildly flat, no acute evidence of depressive or anxiety feelings. - Physical Exam Vital Signs Temp Pulse Resp BP Pulse Ox 97.8 F 88 18 162/82 H 93 08/17/19 11:42 08/17/19 16:31 08/17/19 16:31 08/17/19 16:31 08/17/19 16:31 Oxygen Flow Rate (L/min) 2 Oxygen Delivery Method Room Air Weight: 175 lb 4.28 oz Body Mass Index (BMI) 29.9 Finger Stick Blood Glucose 157 Intake and Output for Last 24 Hours 10/09/19 10/10/19 10/11/19 23:59 23:59 23:59 Intake Total 1000 / 1000 Balance 1000 / 1000 Laboratory Tests Past 24 Hrs 08/17/19 08/17/19 08/17/19 11:40 11:40 11:40 WBC 7.3 RBC 5.00 Hgb 14.5 Hct 45.3 MCV 90.6 MCH 29.0 MCHC 32.0 RDW Std Deviation 46.3 H RDW Coeff of Joey 13.9 Plt Count 178 MPV 11.9 Immature Gran % (Auto) 0.300 Neut % (Auto) 67.6 Lymph % (Auto) 20.9 [place] % (Auto) 7.9 Eos % (Auto) 2.5 Baso % (Auto) 0.8 Absolute Neuts (auto) 4.9 Absolute Lymphs (auto) 1.52 Nucleated RBC % 0 PT 13.7 INR 1.1 APTT 34.2 Sodium 142 Potassium 3.9 Chloride 107 Carbon Dioxide 26.0 Anion Gap 9 BUN 14 Creatinine 1.19 H Estim Creat Clear Calc 33.64 Est GFR (MDRD) Af Amer 56 L Est GFR (MDRD) Non-Af 47 L BUN/Creatinine Ratio 11.8 Glucose 180 H Lactic Acid Calcium 9.5 Troponin I < 0.015 Urine Color Urine Clarity Urine pH Ur Specific Oxly Urine Protein Urine Glucose (UA) Urine Ketones Urine Occult Blood Urine Nitrite Urine Bilirubin Urine Urobilinogen Ur Leukocyte Esterase Urine RBC Urine WBC Ur Squamous Epith Cells Urine Bacteria Urine Mucus 08/17/19 08/17/19 12:40 13:30 WBC RBC Hgb Hct MCV MCH MCHC RDW Std Deviation RDW Coeff of Joey Plt Count MPV Immature Gran % (Auto) Neut % (Auto) Lymph % (Auto) [place] % (Auto) Eos % (Auto) Baso % (Auto) Absolute Neuts (auto) Absolute Lymphs (auto) Nucleated RBC % PT INR APTT Sodium Potassium Chloride Carbon Dioxide Anion Gap BUN Creatinine Estim Creat Clear Calc Est GFR (MDRD) Af Amer Est GFR (MDRD) Non-Af BUN/Creatinine Ratio Glucose Lactic Acid 2.2 H Calcium Troponin I Urine Color Yellow Urine Clarity Clear Urine pH 6.0 Ur Specific Oxly 1.010 Urine Protein Negative Urine Glucose (UA) Normal Urine Ketones Negative Urine Occult Blood Negative Urine Nitrite Negative Urine Bilirubin Negative Urine Urobilinogen Normal Ur Leukocyte Esterase Negative Urine RBC 0 SEEN Urine WBC 0 SEEN Ur Squamous Epith Cells 0 SEEN Urine Bacteria 0 SEEN Urine Mucus 0 SEEN Assessment/Plan All Active Problems Acute CVA (cerebrovascular accident) (Acute) Hyperglycemia (Acute) Thrombocytopenia (Acute) The patient is a 79 y/o F w/ PMHx: Hx multiple CVA w/ R sided hemiplegia, HTN, HLD, Anxiety and Depression, GERD, Obesity who presents to the [facility] ED on 08/17/19 with history as noted of multiple prior strokes with noted evaluation last per family at 9:30 PM the day prior with onset since significant worsened lower extremity weakness including the left side as well as the right side with underlying right-sided hemiplegia but she notes this is worse than baseline with no paresthesias associated and no changes in her speech with chronically mildly slurred speech at baseline. (1) Hospice: Patient code status per family/POA DNR-CC. Will admit to [facility] given this decision with no further CVA evaluation, institute hospice comfort measures w/ VS limited q 12, allowance of diet of choice, deferral of any therapy evaluations, PRN regimen for pain, nausea with continuation of patient home medicines currently but likely discontinuation upon transition to skilled pending hospice evaluation. CM consulted to assist with evaluation for transition to skilled facility with hospice. (2) Suspected likely acute CVA with left-sided lower extremity debility with prior history CVA with right-sided hemiplegia: Likely acute CVA especially given CTA head and neck findings with notable 80% right carotid stenosis as well as left-sided carotid narrowing with prior stent, ED evaluation included CT brain w ith no acute intracranial findings, CTA head and neck with normal-appearing CTA head however noted severe 80% right carotid stenosis, left carotid stent patent but with focal moderate 50% narrowing at the origin of the external carotid artery likely tortuosity, patent vertebral arteries bilaterally. Following lengthy discussions with patient and family will not pursue further evaluation of possible CVA. Will defer therapy evaluation given patient preference to transition to comfort care only. We will continue in the interim patient aspirin, Plavix, statin regimen. (3) Hypertension: We will hold patient home Norvasc given hypertensive nature upon presentation, will have PRN IV hydralazine in interim. (4) Hyperlipidemia: Continue home statin regimen. (5) Obesity: Weight loss and lifestyle changes encouraged. (6) GERD: We will continue home PPI. (7) Anxiety and depression: We will continue patient home aripiprazole, escitalopram regimen. (8) DVT prophylaxis: Will defer given transition for DNR CC comfort measures with hospice evaluation pending. (9) CODE status: Patient daughter is present, healthcare power of commonwealth attorney, living will in place, discussed CODE status at length including difference between FULL code, DNR-CCA and DNR-CC status. Following discussions about the differences in these status, requested DNR-CC status. Discussed patient current presentation and family and patient requested that she be transitioned to hospice with likely transition to care home facility under hospice. Patient and family amenable to admission for evaluation for this transition as patient living alone currently and unable to care for self. Advanced Care Planning Face to Face Time: 20 minutes. Code Visit Inpatient E&M: 97742 Init Hosp L3 Procedures: 22330 Advncd Care Plan 30 Min
--- NOTE | 2019-08-17 17:40 | ED.VISSUMM ---
- ER Visit Summary Date of Service: 08/17/19 Chief Complaint: Weakness and slurred speech History of Present Illness: The patient is a [address] Broussard and [facility]. Patient has a history of multiple strokes. These have left her with right-sided weakness and slurred speech. Patient was last seen well yesterday at 9:30 PM. She is a poor informant. She complains of weakness in her lower extremities bilaterally right greater than left. She states that this began this morning. She denies any numbness. Daughter, who is power of regulatory attorney, reports that she has chronic slurred speech that is a little worse on a few words today. Physical Examination: Vitals: 97.8, 101/64, 91, 16, 90% on room air. Is hypoxic. General: Well-nourished and well-developed. Head: Normocephalic atraumatic. Neck: Supple, no lymphadenopathy. No JVD. Nontender. Cardiovascular: Regular rate and rhythm. No murmurs. Respiratory: No respiratory distress. Clear to auscultation bilaterally. Abdominal: Soft, nontender, nondistended, normal bowel sounds. No guarding, rebound, or peritoneal signs. Back: Nontender. Extremities: Nontender, 1+ pitting edema lower extremes bilaterally. Skin: Normal color, no rash. Neurologic: Alert and oriented ?3. Cranial nerves II through XII are intact. 3 out of 5 strength in her right upper and right lower extremity. 4 out of 5 strength in her left lower extremity. She has paresthesias on the right that she reports her chronic. Given her prior associate it is difficult to come up with an exact NIH scale. I believe her NIH is 8. Psych: Normal affect. Test Results: EKG is sinus at [address] changes. CBC is normal. Chem-7 shows a creatinine 1.19 glucose 180. INR is 1.1. UA is normal. Troponin is negative. Lactic acid is 2.2. Clinical Impression(s) from Imaging Studies Brain CT 08/17/19 11:41 IMPRESSION: Chronic involutional changes of the brain. Electronically Signed: Marco Hurtado MD at 12:09 EDT Tel , Service support , Chest X-Ray 08/17/19 12:23 IMPRESSION: No active disease. Electronically Signed: Marco Hurtado MD at 12:49 EDT Tel , Service support , Head/Neck CTA 08/17/19 14:05 IMPRESSION: 1. Normal CTA Head 2. Severe (80%) (right carotid stenosis. 3. Left carotid stent which appears patent but with focal moderate (50%) narrowing at the origin of the external carotid artery likely from tortuosity. 4. Patent vertebral arteries bilaterally.. Electronically Signed: Marco Hurtado MD at 15:59 EDT Tel , Service support , Emergency Department Course and Treatment: Patient's initial NIH scale is approximately 8. However it is difficult to ascertain what is old and what is new. The patient was last seen well greater than 14 hours ago. She is not a TPA candidate. The patient's symptoms completely resolved while in the emergency department. On arrival she was borderline hypotensive and hypoxic. She has bilateral carotid stenosis and I suspect that with her hypertension that she had some hypoperfusion as the source of her neurologic symptoms. Unfortunately I do not have an explanation for her hypotension or hypoxia. Treatment Plan: I had a prolonged discussion with patient as well as her daughter who is the power of regulatory attorney. At this time patient wants to be DNR comfort care only. She has already known about this carotid stenosis and does not want to have this repaired. She was discussed with Dr. Rivrea and will be admitted for further evaluation and treatment. Disposition: Admitted in improved. Impression: 1. TIA. 2. Bilateral carotid stenosis. 3. Hypertension. 4. Hypoxia. 5. DNR comfort care only. This note was generated with [employer] software. It may contain incorrect words, spelling, and punctuation that were not noted in review of the chart prior to signing ED Disposition - Plan for ED Patient: Disposition: Acute Care [facility]
[2019-08-17] MEDS: 0.9% Normal Saline 1,000 ML 100 ML IV (18:05)
[2019-08-17] MEDS: MELATONIN 3 MG TABLET PO (20:13)
[2019-08-17] MEDS: Atorvastatin Calcium 40 MG Tablet PO (20:13)
[2019-08-17] MEDS: ARIPiprazole 5 MG Tablet PO (20:13)
[2019-08-17] MEDS: busPIRone 5 MG Tablet PO (20:14)
[2019-08-18 04:13] VITALS: BP 107/72; PULSE 59; RESP 18; TEMP 36.7; O2SAT 95
[2019-08-18] MEDS: 0.9% Normal Saline 1,000 ML 100 ML IV (04:13)
--- NOTE | 2019-08-18 08:10 | PCM.PN.HOSP ---
Subjective: CC follow-up adult failure to thrive Patient is a 79-year-old lady with history of multiple strokes with residual right-sided hemiplegia brought to the emergency department by the family with concerns for another stroke. Patient apparently had experienced left-sided weakness with worsening of her dysarthria. Family elected for patient to remain DNR comfort care with plans for patient to be transferred to hospice with therapy Objective: GENERAL: No apparent distress HEENT: Atraumatic; EYES; Anicteric, NECK; supple, normal thyroid, RESPIRATORY: Diminished to auscultation CARDIOVASCULAR: Regular S1 S2, GI: soft, non-tender, normoactive bowel sounds, : No Renal angle tenderness; EXTREMITIES: no clubbing, no cyanosis. NEURO: Dysarthric SKIN: No Rash PSYCH; Normal affect Vitals/I&O's: Vital Signs Temp Pulse Resp BP Pulse Ox 98.1 F 59 L 18 107/72 95 08/18/19 04:13 08/18/19 04:13 08/18/19 04:13 08/18/19 04:13 08/18/19 04:13 Oxygen Flow Rate (L/min) 2 Oxygen Delivery Method Nasal Cannula Weight: 79.152 kg Body Mass Index (BMI) 29.9 Finger Stick Blood Glucose 157 Intake and Output for Last 24 Hours 08/16/19 08/17/19 08/18/19 23:59 23:59 23:59 Intake Total 1000 / 1000 1000 / 1000 Balance 1000 / 1000 1000 / 1000 Laboratory Results 08/17/19 11:40: WBC 7.3, RBC 5.00, Hgb 14.5, Hct 45.3, MCV 90.6, MCH 29.0, MCHC 32.0, RDW Std Deviation 46.3 H, RDW Coeff of Joey 13.9, Plt Count 178, MPV 11.9, Immature Gran % (Auto) 0.300, Neut % (Auto) 67.6, Lymph % (Auto) 20.9, [place] % (Auto) 7.9, Eos % (Auto) 2.5, Baso % (Auto) 0.8, Absolute Neuts (auto) 4.9, Absolute Lymphs (auto) 1.52, Nucleated RBC % 0 08/17/19 11:40: PT 13.7, INR 1.1, APTT 34.2 08/17/19 11:40: Sodium 142, Potassium 3.9, Chloride 107, Carbon Dioxide 26.0, Anion Gap 9, BUN 14, Creatinine 1.19 H, Estim Creat Clear Calc 33.64, Est GFR (MDRD) Af Amer 56 L, Est GFR (MDRD) Non-Af 47 L, BUN/Creatinine Ratio 11.8, Glucose 180 H, Calcium 9.5, Troponin I < 0.015 08/17/19 12:40: Lactic Acid 2.2 H 08/17/19 13:30: Urine Color Yellow, Urine Clarity Clear, Urine pH 6.0, Ur Specific [place] 1.010, Urine Protein Negative, Urine Glucose (UA) Normal, Urine Ketones Negative, Urine Occult Blood Negative, Urine Nitrite Negative, Urine Bilirubin Negative, Urine Urobilinogen Normal, Ur Leukocyte Esterase Negative, Urine RBC 0 SEEN, Urine WBC 0 SEEN, Ur Squamous Epith Cells 0 SEEN, Urine Bacteria 0 SEEN, Urine Mucus 0 SEEN Current Medications Acetaminophen (Tylenol) 650 mg PO Q6H PRN PRN PRN Reason: Non-cardiac pain (mod-severe) Hydrocodone Bitart/Acetaminophen ([place] 5mg-325mg) 1 - 2 tablet PO Q6H PRN PRN PRN Reason: Pain Score 4-10/10 Al Hydroxide/Mg Hydroxide (Mylanta Ii) 15 - 30 ml PO Q4H PRN PRN PRN Reason: INDIGESTION Albuterol Sulfate (Ventolin Aerosols) 2.5 mg INHALATION Q2H PRN PRN PRN Reason: dyspnea, wheezing Aripiprazole (Abilify) 5 mg PO QHS [facility] Last Admin: 08/17/19 20:13 Dose: 5 mg Documented by: Aspirin (Ecotrin) 81 mg PO DAILY@0800 [facility] Atorvastatin Calcium (Lipitor) 40 mg PO QHS [facility] Last Admin: 08/17/19 20:13 Dose: 40 mg Documented by: Buspirone HCl (Buspar) 5 mg PO BID [facility] Last Admin: 08/17/19 20:14 Dose: 5 mg Documented by: Clopidogrel Bisulfate (Plavix) 75 mg PO DAILY [facility] Dextrose (D50w Syringe) 0 gm IV X1 PRN; Protocol PRN Reason: Hypoglycemia Diphenhydramine HCl (Benadryl) 25 mg PO Q4H PRN PRN PRN Reason: Extrapyridimal Spasm/Itching Escitalopram Oxalate (Lexapro) 20 mg PO DAILY [facility] Glucagon () 1 mg IM .X1 PRN PRN Reason: Hypoglycemia Haloperidol Lactate (Haloperidol Lactate) 0 mg SL/PO Q1H PRN PRN PRN Reason: Hyperactivity/Anxiety Hydralazine HCl (Apresoline Iv) 10 mg IV Q4H PRN PRN PRN Reason: SBP > 160 Sodium Chloride () 1,000 mls @ 100 mls/hr IV .Q10H [facility] Stop: 08/18/19 13:18 Last Admin: 08/18/19 04:13 Dose: 100 mls/hr Documented by: Ibuprofen (Motrin Liquid) 400 - 600 mg PO Q4H PRN PRN PRN Reason: Bone or Musculoskeletal Pain Loperamide HCl (Imodium) 2 mg PO UD PRN PRN Reason: After each liquid stool Magnesium Hydroxide (Milk Of Magnesia) 30 ml PO DAILY PRN PRN Reason: Constipation Melatonin (Melatonin) 3 mg PO QHS PRN PRN PRN Reason: INSOMNIA Last Admin: 08/17/19 20:13 Dose: 3 mg Documented by: Morphine Sulfate () 1 - 2 mg IV Q4H PRN PRN PRN Reason: Pain Score 1-10/10 Nitroglycerin (Nitrostat) 0.4 mg SUBLINGUAL Q5M PRN PRN Reason: CARDIAC/CHEST PAIN Nystatin (Mycostatin Powder) 1 applic TOPICAL BID [facility]; Protocol Ondansetron HCl (Zofran) 4 mg IV Q8H PRN PRN PRN Reason: NAUSEA/VOMITING Pantoprazole Sodium (Protonix) 20 mg PO DAILY [facility] Sodium Chloride () 5 - 15 ml IV UD PRN PRN Reason: SALINE FLUSH Medical Necessity - Tobacco Use Smoking Status: Former smoker - Patient quit cigarette tobacco usage approximately 2 years prior, prior to this 1 to 2 cigarette tobacco pack per day since teenager. Tobacco Use: Non-smoker Assessment/Plan All Active Problems Acute CVA (cerebrovascular accident) (Acute) Hyperglycemia (Acute) Thrombocytopenia (Acute) Patient is a 79-year-old lady with history of multiple strokes with residual right-sided hemiplegia brought to the emergency department by the family with concerns for another stroke. Patient apparently had experienced left-sided weakness with worsening of her dysarthria. Family elected for patient to remain DNR comfort care with plans for patient to be transferred to hospice with therapy 1. Adult failure to thrive ~ in the patient with multiple strokes with residual right-sided hemiplegia and dysarthria. Family requested consultation with hospice which was placed awaiting input from hospice 2. Hypertension ~patient blood pressure remains stable 3. Dyslipidemia ~ patient is on statin therapy, continued at home dose 4. Depression with anxiety ~On SSRI as well as buspirone 5. GERD on PPI Active Medications Acetaminophen (Tylenol) 650 mg PO Q6H PRN PRN PRN Reason: Non-cardiac pain (mod-severe) Hydrocodone Bitart/Acetaminophen ([place] 5mg-325mg) 1 - 2 tablet PO Q6H PRN PRN PRN Reason: Pain Score 4-10/10 Al Hydroxide/Mg Hydroxide (Mylanta Ii) 15 - 30 ml PO Q4H PRN PRN PRN Reason: INDIGESTION Albuterol Sulfate (Ventolin Aerosols) 2.5 mg INHALATION Q2H PRN PRN PRN Reason: dyspnea, wheezing Aripiprazole (Abilify) 5 mg PO QHS [facility] Last Admin: 08/17/19 20:13 Dose: 5 mg Documented by: Aspirin (Ecotrin) 81 mg PO DAILY@0800 [facility] Atorvastatin Calcium (Lipitor) 40 mg PO QHS [facility] Last Admin: 08/17/19 20:13 Dose: 40 mg Documented by: Buspirone HCl (Buspar) 5 mg PO BID [facility] Last Admin: 08/17/19 20:14 Dose: 5 mg Documented by: Clopidogrel Bisulfate (Plavix) 75 mg PO DAILY [facility] Dextrose (D50w Syringe) 0 gm IV X1 PRN; Protocol PRN Reason: Hypoglycemia Diphenhydramine HCl (Benadryl) 25 mg PO Q4H PRN PRN PRN Reason: Extrapyridimal Spasm/Itching Escitalopram Oxalate (Lexapro) 20 mg PO DAILY [facility] Glucagon () 1 mg IM .X1 PRN PRN Reason: Hypoglycemia Haloperidol Lactate (Haloperidol Lactate) 0 mg SL/PO Q1H PRN PRN PRN Reason: Hyperactivity/Anxiety Hydralazine HCl (Apresoline Iv) 10 mg IV Q4H PRN PRN PRN Reason: SBP > 160 Sodium Chloride () 1,000 mls @ 100 mls/hr IV .Q10H [facility] Stop: 08/18/19 13:18 Last Admin: 08/18/19 04:13 Dose: 100 mls/hr Documented by: Ibuprofen (Motrin Liquid) 400 - 600 mg PO Q4H PRN PRN PRN Reason: Bone or Musculoskeletal Pain Loperamide HCl (Imodium) 2 mg PO UD PRN PRN Reason: After each liquid stool Magnesium Hydroxide (Milk Of Magnesia) 30 ml PO DAILY PRN PRN Reason: Constipation Melatonin (Melatonin) 3 mg PO QHS PRN PRN PRN Reason: INSOMNIA Last Admin: 08/17/19 20:13 Dose: 3 mg Documented by: Morphine Sulfate () 1 - 2 mg IV Q4H PRN PRN PRN Reason: Pain Score 1-10/10 Nitroglycerin (Nitrostat) 0.4 mg SUBLINGUAL Q5M PRN PRN Reason: CARDIAC/CHEST PAIN Nystatin (Mycostatin Powder) 1 applic TOPICAL BID [facility]; Protocol Ondansetron HCl (Zofran) 4 mg IV Q8H PRN PRN PRN Reason: NAUSEA/VOMITING Pantoprazole Sodium (Protonix) 20 mg PO DAILY [facility] Sodium Chloride () 5 - 15 ml IV UD PRN PRN Reason: SALINE FLUSH Code Visit Inpatient E&M: 94113 Subs Hosp L2
[2019-08-18 11:00] VITALS: BP 129/75; PULSE 61; RESP 20; TEMP 36.3; O2SAT 94
[2019-08-18] MEDS: Pantoprazole Sodium 20 MG Tablet PO (11:07)
[2019-08-18] MEDS: busPIRone 5 MG Tablet PO (11:07)
[2019-08-18] MEDS: Escitalopram Oxalate 20 MG Tablet PO (11:07)
[2019-08-18] MEDS: Clopidogrel Bisulfate 75 MG Tablet PO (11:08)
[2019-08-18] MEDS: Aspirin E.C. 81 MG Tablet PO (11:08)
[2019-08-18] MEDS: Nystatin Powder 15gm Bottle 1 APPLIC TOPICAL (11:12)
[2019-08-18 11:20] VITALS: O2SAT 96
--- NOTE | 2019-08-18 11:48 | CM.UR ---
Was preparing to see patient this am and found out that hospice was already here and are admitted her to IP hospice today. Patient is to leave around noon. Bailey Reddy RN, CCM.
--- NOTE | 2019-08-18 11:56 | DCINST_ITS ---
You will use the following diet at home:: No restrictions Your food should be the consistency of: Regular Discharge Activity: No Restrictions Allergies/Adverse Reactions: Allergies latex Allergy (Verified 08/17/19 11:44) Swelling Medications to take at Discharge Clopidogrel Bisulfate [Plavix] 75 mg PO DAILY 06/07/18 Acetaminophen [Tylenol Tablet] 650 mg PO Q6H PRN PRN tablet 06/26/18 Aspirin E.C. [Ecotrin] 81 mg PO DAILY@0800 tablet 06/26/18 Amlodipine [Norvasc] 5 mg PO DAILY 08/17/19 Aripiprazole 5 mg PO QHS 08/17/19 Ascorbic Acid [Vitamin C] 500 mg PO BID 08/17/19 Atorvastatin Calcium [Lipitor] 40 mg PO QHS 08/17/19 Buspirone HCl 5 mg PO BID 08/17/19 Escitalopram Oxalate [Lexapro] 20 mg PO DAILY 08/17/19 Gluc [place]/Chondro Mclaughlin A/Vit C/Mn [Glucosamine Chondroitin Tab] 1 tab PO DAILY 08/17/19 Omeprazole 20 mg PO DAILY 08/17/19 Primary Care Physician: Juan Broussard Chi, MD [Primary Care Provider] - Test Results: Test results from this visit will be discussed in further detail at your follow- up appointment, if applicable. Proposed Discharge Date: 08/18/19
--- NOTE | 2019-08-18 11:57 | PCM.DC.SUM ---
Discharge Date and Diagnosis Date of Admission: 08/17/19 Date of Discharge: 08/18/19 - Primary Discharge Diagnosis Adult failure to thrive - Secondary Discharge Diagnosis Chronic Problems History of CVA (cerebrovascular accident) (Chronic) HTN (hypertension) (Chronic) HLD (hyperlipidemia) (Chronic) GERD (gastroesophageal reflux disease) (Chronic) Hospital Course and Treatment Imaging Results: Clinical Impression(s) from Imaging Studies Brain CT 08/17/19 11:41 IMPRESSION: Chronic involutional changes of the brain. Electronically Signed: Marco Hurtado MD at 12:09 EDT Tel , Service support , Chest X-Ray 08/17/19 12:23 IMPRESSION: No active disease. Electronically Signed: Marco Hurtado MD at 12:49 EDT Tel , Service support , Head/Neck CTA 08/17/19 14:05 IMPRESSION: 1. Normal CTA Head 2. Severe (80%) (right carotid stenosis. 3. Left carotid stent which appears patent but with focal moderate (50%) narrowing at the origin of the external carotid artery likely from tortuosity. 4. Patent vertebral arteries bilaterally.. Electronically Signed: Marco Hurtado MD at 15:59 EDT Tel , Service support , Operations: None Summary of Care Provided: Patient is a 79-year-old lady with history of multiple strokes with residual right-sided hemiplegia brought to the emergency department by the family with concerns for another stroke. Patient apparently had experienced left-sided weakness with worsening of her dysarthria. Family elected for patient to remain DNR comfort care with plans for patient to be transferred to hospice with therapy 1. Adult failure to thrive ~ in the patient with multiple strokes with residual right-sided hemiplegia and dysarthria. Family requested consultation with hospice patient was transferred to hospice medical facility 2. Hypertension ~Blood pressure did remain stable 3. Dyslipidemia ~ patient is on statin therapy, continued at home dose 4. Depression with anxiety ~On SSRI as well as buspirone 5. GERD on PPI Objective: GENERAL: No apparent distress HEENT: Atraumatic; EYES; Anicteric, NECK; supple, normal thyroid, RESPIRATORY: Diminished to auscultation CARDIOVASCULAR: Regular S1 S2, GI: soft, non-tender, normoactive bowel sounds, : No Renal angle tenderness; EXTREMITIES: no clubbing, no cyanosis. NEURO: Dysarthric SKIN: No Rash - Physical Exam Vital Signs Temp Pulse Resp BP Pulse Ox 97.4 F L 61 20 H 129/75 H 96 08/18/19 11:00 08/18/19 11:00 08/18/19 11:00 08/18/19 11:00 08/18/19 11:20 Oxygen Flow Rate (L/min) 2 Oxygen Delivery Method Nasal Cannula Weight: 79.152 kg Body Mass Index (BMI) 29.9 Finger Stick Blood Glucose 157 Intake and Output for Last 24 Hours 08/16/19 08/17/19 08/18/19 23:59 23:59 23:59 Intake Total 1000 / 1000 1770 / 1770 Balance 1000 / 1000 1770 / 1770 Laboratory Tests Past 24 Hrs 08/17/19 08/17/19 08/17/19 11:40 11:40 11:40 WBC 7.3 RBC 5.00 Hgb 14.5 Hct 45.3 MCV 90.6 MCH 29.0 MCHC 32.0 RDW Std Deviation 46.3 H RDW Coeff of Joey 13.9 Plt Count 178 MPV 11.9 Immature Gran % (Auto) 0.300 Neut % (Auto) 67.6 Lymph % (Auto) 20.9 [place] % (Auto) 7.9 Eos % (Auto) 2.5 Baso % (Auto) 0.8 Absolute Neuts (auto) 4.9 Absolute Lymphs (auto) 1.52 Nucleated RBC % 0 PT 13.7 INR 1.1 APTT 34.2 Sodium 142 Potassium 3.9 Chloride 107 Carbon Dioxide 26.0 Anion Gap 9 BUN 14 Creatinine 1.19 H Estim Creat Clear Calc 33.64 Est GFR (MDRD) Af Amer 56 L Est GFR (MDRD) Non-Af 47 L BUN/Creatinine Ratio 11.8 Glucose 180 H Lactic Acid Calcium 9.5 Troponin I < 0.015 Urine Color Urine Clarity Urine pH Ur Specific [place] Urine Protein Urine Glucose (UA) Urine Ketones Urine Occult Blood Urine Nitrite Urine Bilirubin Urine Urobilinogen Ur Leukocyte Esterase Urine RBC Urine WBC Ur Squamous Epith Cells Urine Bacteria Urine Mucus 08/17/19 08/17/19 12:40 13:30 WBC RBC Hgb Hct MCV MCH MCHC RDW Std Deviation RDW Coeff of Joey Plt Count MPV Immature Gran % (Auto) Neut % (Auto) Lymph % (Auto) [place] % (Auto) Eos % (Auto) Baso % (Auto) Absolute Neuts (auto) Absolute Lymphs (auto) Nucleated RBC % PT INR APTT Sodium Potassium Chloride Carbon Dioxide Anion Gap BUN Creatinine Estim Creat Clear Calc Est GFR (MDRD) Af Amer Est GFR (MDRD) Non-Af BUN/Creatinine Ratio Glucose Lactic Acid 2.2 H Calcium Troponin I Urine Color Yellow Urine Clarity Clear Urine pH 6.0 Ur Specific [place] 1.010 Urine Protein Negative Urine Glucose (UA) Normal Urine Ketones Negative Urine Occult Blood Negative Urine Nitrite Negative Urine Bilirubin Negative Urine Urobilinogen Normal Ur Leukocyte Esterase Negative Urine RBC 0 SEEN Urine WBC 0 SEEN Ur Squamous Epith Cells 0 SEEN Urine Bacteria 0 SEEN Urine Mucus 0 SEEN Discharge Diet: No Restrictions Discharge Activity: No Restrictions Home Medications: Medications to take at Discharge Clopidogrel Bisulfate [Plavix] 75 mg PO DAILY 06/07/18 Acetaminophen [Tylenol Tablet] 650 mg PO Q6H PRN PRN tablet 06/26/18 Aspirin E.C. [Ecotrin] 81 mg PO DAILY@0800 tablet 06/26/18 Amlodipine [Norvasc] 5 mg PO DAILY 08/17/19 Aripiprazole 5 mg PO QHS 08/17/19 Ascorbic Acid [Vitamin C] 500 mg PO BID 08/17/19 Atorvastatin Calcium [Lipitor] 40 mg PO QHS 08/17/19 Buspirone HCl 5 mg PO BID 08/17/19 Escitalopram Oxalate [Lexapro] 20 mg PO DAILY 08/17/19 Gluc [place]/Chondro [place] A/Vit C/Mn [Glucosamine Chondroitin Tab] 1 tab PO DAILY 08/17/19 Omeprazole 20 mg PO DAILY 08/17/19 Primary Care Physician: Juan Broussard Chi, MD [Primary Care Provider] - Disposition: Hospice Medical Facility Minutes spent on discharge:: 45 Patient Condition:: Fair Medical Necessity - Tobacco Use Smoking Status: Former smoker - Patient quit cigarette tobacco usage approximately 2 years prior, prior to this 1 to 2 cigarette tobacco pack per day since teenager. Tobacco Use: Non-smoker Meaningful Use Info Meaningful Use Diagnoses (Choose all that apply): None applicable Code Visit Inpatient E&M: 43934 Disch Hosp
== END 2019-08-18 12:18 | disposition hospice, inpatient (51) | DRG 640 ==
LOC: ED 12:39 → MS3 08-18 07:10
PROVIDERS: Admitting Provider Family Medicine; Emergency Provider Emergency Medicine; Family Provider Family Medicine Geriatric Medicine; PCP Family Medicine Geriatric Medicine; Referring Provider Family Medicine; Visit Provider Internal Medicine
DX: R62.7 Adult failure to thrive (principal); I63.9 Cerebral infarction, unspecified; I69.351 Hemiplegia and hemiparesis following cerebral infarction affecting right dominant side; I69.322 Dysarthria following cerebral infarction; I10 Essential (primary) hypertension; E78.5 Hyperlipidemia, unspecified; K21.9 Gastro-esophageal reflux disease without esophagitis; I65.23 Occlusion and stenosis of bilateral carotid arteries; Z66 Do not resuscitate; R09.02 Hypoxemia; E66.9 Obesity, unspecified; Z79.82 Long term (current) use of aspirin; Z79.02 Long term (current) use of antithrombotics/antiplatelets; Z79.899 Other long term (current) drug therapy; Z87.891 Personal history of nicotine dependence; Z68.29 Body mass index [BMI] 29.0-29.9, adult; F41.8 Other specified anxiety disorders
CPT/HCPCS: 70450; 70496; 70498; 71045; 80048; 81001; 83605; 84484; 85025; 85610; 85730; 93005; 99285; J7030; P9612; Q9967; A4216

== ENCOUNTER 2019-09-19 05:01 | Inpatient (IN) | payer MEDICARE, SELFPAY ==
[2019-08-17 17:26] VITALS: BMI 29.9
[2019-09-19 05:02] VITALS: BP 112/88; PULSE 84; RESP 26; TEMP 36.4; O2SAT 94; BMI 27.8
--- NOTE | 2019-09-19 05:14 | ED.VIS.GEN ---
History of Present Illness Chief Complaint: Vag Bleeding Narrative: Patient is a 79-year-old female who presents with vaginal bleeding. This began yesterday evening. She has no pain. She is enrolled in hospice related to multiple strokes. Family states that she did have vomiting a few days ago but has not vomited since Tuesday. Currently she does not feel nauseated. Currently she has no pain. She has had a prior hysterectomy. She is on aspirin and Plavix Past Medical History - Allergies and Home Meds Allergies/Adverse Reactions: Allergies latex Allergy (Verified 09/19/19 05:02) Swelling Primary Care Physician: Juan Broussard Chi, MD [COURTESY STAFF PHYSICIAN] - Past Medical History: - - Multiple strokes, hypertension, hyperlipidemia Surgical History: appendectomy, cholecystectomy, hysterectomy, - - x 2 Smoking Status: Never smoker - Family History Maternal Family History: Reports: - - Notable maternal family history of diabetes. Paternal Family History: Reports: - - Notable paternal family history of heart disease, [place], diabetes. Review of Systems All systems negative except as indicated General: Denies: Fever Cardiovascular: Denies: Chest pain Respiratory: Denies: Dyspnea Gastrointestinal: Reports: Nausea, Vomiting. Denies: Abdominal pain, Diarrhea Genitourinary: Reports: - - vaginal bleeding Physical Exam Vital Signs/Narrative: Vital Signs Temp Pulse Resp BP Pulse Ox 09/19/19 05:02 97.6 F L 84 26 H 112/88 H 94 Inital Vital Signs reviewed: Yes General: Well nourished, Well developed Head: Normocephalic Eyes: EOMI ENT: Moist mucous membranes Neck: Supple Cardiovascular: Regular rate, Regular rhythm Respiratory: No distress, CTA bilaterally Abdomen: Soft, Tender - Mild diffuse abdominal tenderness : - - Vaginal bleeding, nursing noted a small clot when they changed her adult diaper. Skin: Normal color Neurological: Alert Psychological: Normal affect Diagnostic/Tx/Re-eval - Medical Decision Making Laboratory studies and a urinalysis was ordered. On straight catheterization urine was grossly bloody and clotting. A three-way catheter was placed and manually irrigated. While her urine did briefly clear it again became very dark. Therefore she was started on continuous bladder irrigation. I did speak to urology on-call who requested that the hospitalist admit the patient. ED Disposition - Plan for ED Patient: Disposition: Acute Care Hospital [facility] Diagnosis: Gross hematuria Referrals: Juan Broussard Chi, MD [COURTESY STAFF PHYSICIAN] -
[2019-09-19 05:30] LABS: Absolute Lymphocyte Count 2.45 X10^3/uL (0.83-4.51); Absolute Neutrophil Count 3.8 X10^3/uL (2.0-7.7); Basophil# 0.08 X10^3/uL; Basophil% 1.1 % (0-1); Eosinophil# 0.42 X10^3/uL; Eosinophils% 5.7 % (0-5); Hematocrit 41.1 % (37-47); Lymphocyte # 2.45 X10^3/ul (4.0); Mean Corp Hgb Conc 31.6 g/dL (32-36); Mean Corpuscular Hgb 29.1 pg (27.0-32.0); Mean Corpuscular Volume 92.2 fL (81-99); Mean Platelet Vol. 10.8 fl (6.2-12.0); Monocyte% 8.1 % (0-10); NRBC Flagged by Analyzer 0 % (0-5); Neutrophil # 3.83 X10^3/uL (2.7-7.7); Neutrophil % 51.6 % (47-70); Platelet Count 180 K/mm3 (150-450); RBC Distribution Width SD 47.5 fl (35.1-43.9); Red Blood Count 4.46 M/mm3 (4.2-5.4); White Blood Count 7.4 K/mm3 (4.4-11.0)
[2019-09-19 05:46] LABS: ALB/GLOB Ratio 0.6 RATIO (0.9-2.4); AST(SGOT) 31 U/L (15-37); Alanine Aminotransfer ALT/SGPT 22 U/L (13-56); Albumin, Serum 2.9 g/dL (3.2-5.0); Alkaline Phosphatase 102 U/L (45-117); Anion Gap 8 (5-15); BUN 11 mg/dL (7-18); BUN/Creat Ratio 13.5 RATIO (10-20); Calcium,Total 8.6 mg/dL (8.5-10.1); Chloride 109 mmol/L (98-107); Creatinine, Serum 0.81 mg/dL (0.55-1.02); EST Glomerular Filtration Rate 72 mL/min (>60); Est Glom Filt Rate - Afr Amer 87 mL/min (>60); Estimated Creatinine Clearance 53.59 ml/min; Globulin 4.6 g/dL (2.2-4.2); Glucose 176 mg/dL (74-106); Potassium 3.8 mmol/L (3.5-5.1); Protein, Total 7.5 g/dL (6.4-8.2); Sodium Level 141 mmol/L (136-145)
[2019-09-19 05:55] LABS: International Normalized Ratio 1.1
--- NOTE | 2019-09-19 06:04 | ED.RN ---
THIS RN SPOKE WITH CAREGIVER AT [facility]. CAREGIVER THERE STATES THEY ARE UNABLE TO DO CONTINUOUS BLADDER IRRIGATION AT THEIR FACILITY.
--- NOTE | 2019-09-19 06:19 | HP.PCM_ITS ---
Problem List (1) Hematuria Status: Acute Qualifiers: Hematuria type: unspecified type Qualified Code(s): R31.9 - Hematuria, unspecified History of Present Illness Date of Admission: 09/19/19 Chief Complaint: vaginal bleeding The patient is a 79 year old F is at a senior care under hospice care and then yesterday developed was felt to be vaginal bleeding with clots. Presented to the emergency room and was found not to have vaginal bleeding but hematuria and a catheter was placed. Robin blood was noted within the catheter and irrigation was initiated. Patient is never had hematuria previously. Patient is under hospice care but still on clopidogrel well for her stroke. Patient and daughter have since revoked hospice and wished to be DNR Comfort Care arrest and receive medical treatment. [] Past Medical History Past Medical History (Chronic Problems): Chronic Problems History of CVA (cerebrovascular accident) (Chronic) HTN (hypertension) (Chronic) HLD (hyperlipidemia) (Chronic) GERD (gastroesophageal reflux disease) (Chronic) Allergies latex Allergy (Verified 09/19/19 05:02) Swelling Home Medications: Ambulatory Orders Medication Instructions Recorded Clopidogrel Bisulfate [Plavix] 75 mg PO DAILY 06/07/18 Aspirin E.C. [Ecotrin] 81 mg PO DAILY@0800 tablet 06/26/18 Aripiprazole 5 mg PO QHS 08/17/19 Buspirone HCl 5 mg PO BID 08/17/19 Escitalopram Oxalate [Lexapro] 20 mg PO DAILY 08/17/19 Omeprazole 20 mg PO DAILY 08/17/19 Acetaminophen [Tylenol Tablet] 650 mg PO Q4H PRN PRN 09/19/19 Surgical History: appendectomy, cholecystectomy, hysterectomy, - - x 2 Psychiatric History: No pertinent psych hx [employer] History: No pertinent [employer] history Smoking Status: Never smoker - *Family History Maternal History Items: - - Notable maternal family history of diabetes. Paternal History Items: - - Notable paternal family history of heart disease, [place], diabetes. Review of Systems Constitutional: Denies: Anorexia, Chills HEENT: Denies: Head Aches, Sinus Congestion, Sinus Drainage Cardiovascular: Denies: Chest Pain, Palpitations Respiratory: Denies: Cough, Shortness of breath at rest, Sputum production Gastrointestinal: Reports: Abdominal Pain. Denies: Nausea Genitourinary: Reports: Hematuria Musculoskeletal: Denies: Joint Pain, Joint Tenderness Neurological: Reports: Focal weakness Comment: All review systems are otherwise negative except for as mentioned above and in the HPI. VTE Information - Inpt Only VTE Present on Admission: No VTE Mechan Device Prophylaxis: SCD's VTE Pharm Prophylaxis ordered?: No Reason prophylaxis not ordered:: Medical Contraindication Patient Problems: Active and Suspected Problems Gross hematuria (Acute) Hematuria (Acute) - Physical Exam Vitals/I&O's: Vital Signs Temp Pulse Resp BP Pulse Ox 36.4 C L 84 26 H 112/88 H 94 09/19/19 05:02 09/19/19 05:02 09/19/19 05:02 09/19/19 05:02 09/19/19 05:02 Oxygen Delivery Method Room Air Weight: 78.2 kg Body Mass Index (BMI) 27.8 Finger Stick Blood Glucose 157 General: Alert, Cooperative, - - Slightly uncomfortable. Afebrile. HEENT: Atraumatic, Normocephalic Oral: Moist Mucosa, No Gingival or Mucosal Lesions/ Ulcerations Neck: No Nodes, Trachea Midline Lungs: Clear to auscultation, Normal air movement, No rhonchi, No wheeze, No rales, Diminished Cardiovascular: Regular rate, Regular Rhythm, Normal S1, Normal S2, No murmurs Abdomen: Bowel Sounds Present, Soft, Non-Distended, - - Pubic tenderness. Catheter in place that shows bloody urine. Extremities: No edema, No Calf Tenderness Skin: No rashes, No breakdown Musculoskeletal: Cachexia, Muscle Wasting Neurological: - - Positive clonus on the right. DTRs are treated for in the right patella and 3 out of 4 in the left patellar region. Psych/Mental Status: Normal Affect, Appropriate Laboratory Results 09/19/19 05:20: WBC 7.4, RBC 4.46, Hgb 13.0, Hct 41.1, MCV 92.2, MCH 29.1, MCHC 31.6 L, RDW Std Deviation 47.5 H, RDW Coeff of Joey 14.0, Plt Count 180, MPV 10.8, Immature Gran % (Auto) 0.500, Neut % (Auto) 51.6, Lymph % (Auto) 33.0, [place] % (Auto) 8.1, Eos % (Auto) 5.7 H, Baso % (Auto) 1.1 H, Absolute Neuts (auto) 3.8, Absolute Lymphs (auto) 2.45, Nucleated RBC % 0 09/19/19 05:20: Sodium 141, Potassium 3.8, Chloride 109 H, Carbon Dioxide 24.0, Anion Gap 8, BUN 11, Creatinine 0.81, Estim Creat Clear Calc 53.59, Est GFR (MDRD) Af Amer 87, Est GFR (MDRD) Non-Af 72, BUN/Creatinine Ratio 13.5, Glucose 176 H, Calcium 8.6, Total Bilirubin 0.50, AST 31, ALT 22, Alkaline Phosphatase 102, Total Protein 7.5, Albumin 2.9 L, Globulin 4.6 H, Albumin/Globulin Ratio 0.6 L 09/19/19 05:20: PT 14.0, INR 1.1 Assessment/Plan All Active Problems Acute CVA (cerebrovascular accident) (Acute) Hyperglycemia (Acute) Thrombocytopenia (Acute) Gross hematuria (Acute) Hematuria (Acute) 1. Acute hematuria * Unclear etiology but comp gated by the patient's use of clopidogrel, which will be held * Hunt catheter placed in the emergency room and irrigation initiated * Urology was contacted and deferred admission to the hospital service. We will consult urology for further assistance. 2. History of CVA with right-sided hemiparesis * Hold clopidogrel given the hematuria 3. VTE prophylaxis: Moderate risk. Chemical prophylaxis contraindicated given hematuria. Patient will be on SCDs 4. Advanced care planning: Discussed with the patient and daughter. Hospice has been revoked. Patient previously was DNR comfort care. Confirmed with the daughter that patient is now DNR Comfort Care arrest. We will need to address further goals of care once the hematuria has resolved with plan is to return to hospice or to continue with medical treatment. Code Visit Inpatient E&M: 93136 Init Hosp L3
--- NOTE | 2019-09-19 06:50 | ED.RN ---
ECF updated with POC. This RN spoke to Jeremias at [employer].
[2019-09-19 07:04] VITALS: BMI 31.6; BMI 31.7
[2019-09-19 07:25] VITALS: BP 160/90; PULSE 97; RESP 22; TEMP 36.8; O2SAT 95
--- NOTE | 2019-09-19 07:30 | NURSING ---
Catheter manually irrigated x1 with 60 cc NS for small clots.
--- NOTE | 2019-09-19 09:48 | CASEMGMT ---
LW/POA forms scanned into summary tab of e-chart. Pt's daughter Kandy is listed as healthcare POA. JORDAN Nichols
[2019-09-19] MEDS: busPIRone 5 MG Tablet PO ×2 (09:53→20:40)
[2019-09-19] MEDS: Escitalopram Oxalate 20 MG Tablet PO (09:53)
[2019-09-19] MEDS: Pantoprazole Sodium 20 MG Tablet PO (09:53)
[2019-09-19] MEDS: Aspirin E.C. 81 MG Tablet PO (09:54)
[2019-09-19 10:20] LABS: Absolute Lymphocyte Count 2.08 X10^3/uL (0.83-4.51); Basophil# 0.05 X10^3/uL; Basophil% 0.6 % (0-1); Eosinophils% 2.5 % (0-5); Hematocrit 41.2 % (37-47); Lymphocyte # 2.08 X10^3/ul (4.0); Mean Corp Hgb Conc 31.6 g/dL (32-36); Mean Corpuscular Hgb 28.9 pg (27.0-32.0); Mean Corpuscular Volume 91.6 fL (81-99); Mean Platelet Vol. 10.8 fl (6.2-12.0); Monocyte# 0.68 X10^3/uL; Monocyte% 8.5 % (0-10); NRBC Flagged by Analyzer 0 % (0-5); Neutrophil # 4.95 X10^3/uL (2.7-7.7); Platelet Count 188 K/mm3 (150-450); RBC Distribution Width SD 47.2 fl (35.1-43.9)
--- NOTE | 2019-09-19 10:40 | NURSING ---
Catheter manually irrigated x2 with 60 cc NS for small sized clots.
--- NOTE | 2019-09-19 11:09 | PN_ITS ---
Progress Note This is a 79 years old female patient presented to the medicine because of what she thinks was a vaginal bleeding, found to have hematuria after insertion of Hunt catheter and she was admitted for evaluation. She is on continuous bladder irrigation, urine still bloody, pink. Patient denies any abdominal pain. She has been on Plavix for history of stroke which was held. Her vital signs are stable. Physical examination essentially unremarkable apart from mild right side hemiparesis for history of stroke. Her routine blood work was unr emarkable. Hemoglobin and hematocrit are stable. Pro time and INR were normal. Awaiting urology recommendations. Plan to repeat CBC tomorrow morning. STROKE Vital Signs/Narrative: Vital Signs Temp Pulse Resp BP Pulse Ox 09/19/19 07:25 98.3 F 97 22 H 160/90 H 95
[2019-09-19 13:59] VITALS: BP 96/64; PULSE 99; RESP 18; TEMP 36.5; O2SAT 94
--- NOTE | 2019-09-19 14:00 | NURSING ---
Catheter irrigated at this time for several small clots.
--- NOTE | 2019-09-19 14:17 | CASEMGMT ---
Addendum entered by Tasha Arias 09/19/19 15:02: SW did receive note that pt does have CM Hyacinth Clinton at [facility]. SW placed a call to Hyacinth Clinton and left her a message regarding pt's admission to [facility] and plan to discharge back to [facility] with Hospice. Original Note: Social Work Note Pt is listed as being from [facility] with Hospice. Pt apparently revoked Hospice Services to get treatment while at [facility]. SW placed a call to Tonja at [facility] and left her a message regarding pt, asked for Tonja to call this worker back. SW received message from Tonja at [facility] stating pt is from nursing side at [facility] with Hospice and is able to return to [facility] with Hospice whenever medically cleared. LOTUS faxed updated clinicals to [facility]. LOTUS met with pt and introduced self and role at [facility]. Pt is alert and orientated x3. Pt confirms that she is from [facility] with Hospice and plans on returning to [facility] with Hospice. Plan: Return to [facility] with Hospice once medically cleared Tasha Arias ANIMAL IMPERSONATOR, BINDERY MACHINE SETTER
[2019-09-19 16:10] VITALS: BP 151/96; PULSE 103; RESP 18; TEMP 36.7; O2SAT 95
--- NOTE | 2019-09-19 16:15 | NURSING ---
Catheter manually irrigated at this time for several small clots.
[2019-09-19 20:30] VITALS: BP 98/61; PULSE 73; RESP 20; TEMP 36.9; O2SAT 96
[2019-09-19] MEDS: ARIPiprazole 5 MG Tablet PO (20:40)
[2019-09-20 02:15] VITALS: BP 114/62; PULSE 67; RESP 20; TEMP 36.8; O2SAT 96
[2019-09-20 05:36] LABS: Absolute Lymphocyte Count 2.25 X10^3/uL (0.83-4.51); Absolute Neutrophil Count 4.2 X10^3/uL (2.0-7.7); Basophil# 0.05 X10^3/uL; Basophil% 0.7 % (0-1); Eosinophil# 0.34 X10^3/uL; Eosinophils% 4.6 % (0-5); Hematocrit 37.3 % (37-47); Hemoglobin 11.8 g/dL (12.0-15.0); Lymphocyte # 2.25 X10^3/ul (4.0); Lymphocyte % 30.2 % (19-41); Mean Corp Hgb Conc 31.6 g/dL (32-36); Mean Corpuscular Hgb 29.3 pg (27.0-32.0); Mean Corpuscular Volume 92.6 fL (81-99); Mean Platelet Vol. 11.1 fl (6.2-12.0); Monocyte# 0.62 X10^3/uL; Monocyte% 8.3 % (0-10); NRBC Flagged by Analyzer 0 % (0-5); Neutrophil # 4.17 X10^3/uL (2.7-7.7); Neutrophil % 55.8 % (47-70); Platelet Count 180 K/mm3 (150-450); RBC Distribution Width CV 14.3 % (11.6-14.6); RBC Distribution Width SD 48.8 fl (35.1-43.9); Red Blood Count 4.03 M/mm3 (4.2-5.4); White Blood Count 7.5 K/mm3 (4.4-11.0)
--- NOTE | 2019-09-20 07:43 | PCM.CONS.U ---
Reason for Consult Date of Consultation: 09/20/19 Reason for Consultation: Gross hematuria History of Present Illness: The patient is a 79 year old female who presents the hospital with gross hematuria she is currently on hospice care. She has been on continuous bladder irrigation the nurses report that when they slowed on the irrigation the urine gets bloody again this morning the urine looks fairly clear we will try to stop irrigation again but if this fails she may need to go to surgery tomorrow for evacuation of blood clots. Past Medical History Past Medical History (Chronic Problems): Chronic Problems History of CVA (cerebrovascular accident) (Chronic) HTN (hypertension) (Chronic) HLD (hyperlipidemia) (Chronic) GERD (gastroesophageal reflux disease) (Chronic) Allergies latex Allergy (Verified 09/19/19 05:02) Swelling Home Medications: Ambulatory Orders Medication Instructions Recorded Clopidogrel Bisulfate [Plavix] 75 mg PO DAILY 06/07/18 Aspirin E.C. [Ecotrin] 81 mg PO DAILY@0800 tablet 06/26/18 Aripiprazole 5 mg PO QHS 08/17/19 Buspirone HCl 5 mg PO BID 08/17/19 Escitalopram Oxalate [Lexapro] 20 mg PO DAILY 08/17/19 Omeprazole 20 mg PO DAILY 08/17/19 Acetaminophen [Tylenol Tablet] 650 mg PO Q4H PRN PRN 09/19/19 Surgical History: appendectomy, cholecystectomy, hysterectomy, - - x 2 Psychiatric History: No pertinent psych hx MANAGER PATHOLOGY History: No pertinent MANAGER PATHOLOGY history Smoking Status: Former smoker - *Family History Maternal History Items: - - Notable maternal family history of diabetes. Paternal History Items: - - Notable paternal family history of heart disease, [place], diabetes. Review of Systems Constitutional: Denies: Chills, Fever, Weight Change HEENT: Denies: Head Aches, Sinus Congestion, Sinus Drainage Cardiovascular: Denies: Chest Pain, Palpitations Respiratory: Denies: Cough, Shortness of breath at rest, Sputum production Gastrointestinal: Denies: Abdominal Pain, Nausea, Vomiting Genitourinary: Denies: Dysuria Musculoskeletal: Denies: Joint Pain, Joint Tenderness Skin: Denies: Rash, Wounds Neurological: Denies: Numbness, Tingling, Focal weakness Psychiatric: Denies: Anxiety, Depression, Homicidal Ideations, Suicidal Ideations Hematologic/ Lymphatic: Denies: Easy Bruising, Easy Bleeding Physical Exam - Physical Exam Vital Signs Temp 98.3 F 09/20/19 02:15 Pulse 67 09/20/19 02:15 Resp 20 H 09/20/19 02:15 BP 114/62 09/20/19 02:15 Pulse Ox 96 09/20/19 02:15 Intake & Output 09/18/19 09/19/19 09/20/19 23:59 23:59 23:59 Intake Total 300 / 300 300 / 300 Output Total 2465 / 2465 550 / 550 Balance -2165 / -2165 -250 / -250 Weight: 83.7 kg Intake: Oral 300 / 300 300 / 300 Output: Urine 2465 / 2465 550 / 550 Other: Intake, Continuous Bladder 3,000 3,000 Irrigation 3-way Urethral 3,000 3,000 Output, Continuous Bladder 4,100 3,100 Irrigation 3-way Urethral 3,400 3,300 General: Alert HEENT: Atraumatic Oral: Moist Mucosa Neck: Supple Lungs: Normal air movement Cardiovascular: Regular rate Abdomen: Soft Laboratory Tests Past 24 Hrs 09/19/19 09/20/19 09:59 05:00 WBC 8.0 7.5 RBC 4.50 4.03 L Hgb 13.0 11.8 L Hct 41.2 37.3 MCV 91.6 92.6 MCH 28.9 29.3 MCHC 31.6 L 31.6 L RDW Std Deviation 47.2 H 48.8 H RDW Coeff of Joey 14.0 14.3 Plt Count 188 180 MPV 10.8 11.1 Immature Gran % (Auto) 0.400 0.400 Neut % (Auto) 62.0 55.8 Lymph % (Auto) 26.0 30.2 Stephenson % (Auto) 8.5 8.3 Eos % (Auto) 2.5 4.6 Baso % (Auto) 0.6 0.7 Absolute Neuts (auto) 5.0 4.2 Absolute Lymphs (auto) 2.08 2.25 Nucleated RBC % 0 0 Assessment/Plan All Active Problems Acute CVA (cerebrovascular accident) (Acute) Hyperglycemia (Acute) Thrombocytopenia (Acute) Gross hematuria (Acute) Hematuria (Acute) 79-year-old female who presents the hospital with gross hematuria the catheter in place urine is fairly clear at this point we will try slow down the irrigation and see. If the bleeding stops then no other intervention would be necessary however the bleeding continues and will take her surgery for cystoscopy evacuation of blood clots cauterization of the bleeder. Make her n.p.o. at midnight we will decide tomorrow.
[2019-09-20 07:47] VITALS: BP 139/84; PULSE 63; RESP 20; TEMP 36.5; O2SAT 94
--- NOTE | 2019-09-20 08:10 | PN_ITS ---
Patient Problems: Active and Suspected Problems Gross hematuria (Acute) Subjective: Chief complaint: Follow-up after admission for gross hematuria. Patient seen and examined with no acute events overnight. She denies any complaints. She is on CBI, urine is clearing up. Her vital signs are stable. - Physical Exam Vitals/I&O's: Vital Signs Temp Pulse Resp BP Pulse Ox 97.7 F L 63 20 H 139/84 H 94 09/20/19 07:47 09/20/19 07:47 09/20/19 07:47 09/20/19 07:47 09/20/19 07:47 Oxygen Flow Rate (L/min) 1 Oxygen Delivery Method Nasal Cannula Weight: 184 lb 8.43 oz Body Mass Index (BMI) 31.6 Finger Stick Blood Glucose 157 Intake and Output for Last 24 Hours 09/18/19 09/19/19 09/20/19 23:59 23:59 23:59 Intake Total 300 / 300 300 / 300 Output Total 2465 / 2465 550 / 550 Balance -2165 / -2165 -250 / -250 General: Alert, Oriented x3, Cooperative, No apparent distress HEENT: Atraumatic, PERRLA, EOMI, Normocephalic Oral: Moist Mucosa, No Gingival or Mucosal Lesions/ Ulcerations Neck: Supple, No JVD, Negative Carotid Bruits, Trachea Midline, Thyroid Normal Size and Texture Lungs: Clear to auscultation, Normal air movement, No rhonchi, No wheeze, No rales, Diminished Cardiovascular: Regular rate, Regular Rhythm, Normal S1, Normal S2, PMI Normal Abdomen: Bowel Sounds Present, Soft, Non Tender, Non-Distended, No Hepato- splenomegaly Extremities: No clubbing, No cyanosis, No edema Skin: No rashes, No breakdown Lymphatic: No Cervical, Supraclavicular, or Inguinal Adenopathy Neurological: Cranial nerves II-XII grossly intact, - - Minimal right side hemiparesis Psych/Mental Status: Normal Affect, Appropriate Laboratory Results 09/19/19 09:59: WBC 8.0, RBC 4.50, Hgb 13.0, Hct 41.2, MCV 91.6, MCH 28.9, MCHC 31.6 L, RDW Std Deviation 47.2 H, RDW Coeff of Joey 14.0, Plt Count 188, MPV 10.8, Immature Gran % (Auto) 0.400, Neut % (Auto) 62.0, Lymph % (Auto) 26.0, Faulkner % (Auto) 8.5, Eos % (Auto) 2.5, Baso % (Auto) 0.6, Absolute Neuts (auto) 5.0, Absolute Lymphs (auto) 2.08, Nucleated RBC % 0 09/20/19 05:00: WBC 7.5, RBC 4.03 L, Hgb 11.8 L, Hct 37.3, MCV 92.6, MCH 29.3, MCHC 31.6 L, RDW Std Deviation 48.8 H, RDW Coeff of Joey 14.3, Plt Count 180, MPV 11.1, Immature Gran % (Auto) 0.400, Neut % (Auto) 55.8, Lymph % (Auto) 30.2, Faulkner % (Auto) 8.3, Eos % (Auto) 4.6, Baso % (Auto) 0.7, Absolute Neuts (auto) 4.2, Absolute Lymphs (auto) 2.25, Nucleated RBC % 0 Current Medications Acetaminophen (Tylenol) 650 mg PO Q4H PRN PRN PRN Reason: Mild Pain (0-3/10)/Headache Aripiprazole (Abilify) 5 mg PO QHS [facility] Last Admin: 09/19/19 20:40 Dose: 5 mg Documented by: Aspirin (Ecotrin) 81 mg PO DAILY@0800 [facility] Last Admin: 09/19/19 09:54 Dose: 81 mg Documented by: Buspirone HCl (Buspar) 5 mg PO BID [facility] Last Admin: 09/19/19 20:40 Dose: 5 mg Documented by: Dextrose (D50w Syringe) 0 gm IV X1 PRN; Protocol PRN Reason: Hypoglycemia Escitalopram Oxalate (Lexapro) 20 mg PO DAILY [facility] Last Admin: 09/19/19 09:53 Dose: 20 mg Documented by: Glucagon () 1 mg IM .X1 PRN PRN Reason: Hypoglycemia Sodium Chloride () 250 mls @ 15 mls/hr IV .[id number] PRN PRN Reason: Saline Flush Ondansetron HCl (Zofran) 4 mg IV Q8H PRN PRN PRN Reason: NAUSEA/VOMITING Pantoprazole Sodium (Protonix) 20 mg PO DAILY [facility] Last Admin: 09/19/19 09:53 Dose: 20 mg Documented by: Sodium Chloride () 10 - 40 ml IV UD PRN PRN Reason: SALINE FLUSH Medical Necessity - Tobacco Use Smoking Status: Former smoker Assessment/Plan All Active Problems Gross hematuria (Acute) This is a 79 years old female patient admitted because of gross hematuria for evaluation. #1 gross hematuria: Unclear etiology, on continuous bladder irrigation. Urine is clearing up. Patient denies any suprapubic pain. Platelet count as well as pro time and INR were normal. Patient was on Plavix in addition to aspirin, Plavix held. Urology consulted, recommended to slow down the CBI, monitor and if urine is cleared, no plan for intervention. If patient continue to have hematuria, she will go for cystoscopy tomorrow. Plan to repeat CBC tomorrow morning. #2 anemia: This is acute secondary to hematuria. On admission, hemoglobin was 13 and it came down to 11.8 g/dL today. Hematuria is improving. No indication for blood transfusion. Plan to repeat CBC tomorrow morning. #3 hypertension: Blood pressure stable, currently she is not on any medications. #4 history of stroke: With resultant minimal right-sided hemiparesis. Continue aspirin, Plavix held. #5 hyperlipidemia: She is not on statins as well. #6 depression: Continue Lexapro. #7 GERD: Continue PPI. #8 DVT prophylaxis: SCDs. This note was generated with [employer] software. It may contain incorrect words, spelling, and punctuation that were not noted in checking the note before signing. Code Visit Inpatient E&M: 92041 Subs Hosp L2
--- NOTE | 2019-09-20 08:19 | NURSING ---
CBI clamped at this time. Urine color pale pink. 1550 cc output.
--- NOTE | 2019-09-20 09:06 | NURSING ---
JOY Barajas called in at this time and requested update. This RN verified that Aminah is JOY before giving any information. Notified that Dr. Alvarez ordered for CBI to be stopped and if heavy bleeding continues then to restart CBI with possible surgery tomorrow. Aminah states that patient is completely against any kind of surgery. Notified Aminah that surgery refers to any surgical intervention and may be something similar to cauterizing bleeding area. Aminah states she wants to speak directly to Dr. Alvarez before any surgery is planned. Aminah states she is at work today but plans to come in later today. Requests to be notified of any new orders or changes with patient.
--- NOTE | 2019-09-20 10:22 | CASEMGMT ---
Social Work Note SW placed a call to pt's daughter Aminah who is HCPOA to confirm discharge plans. Aminah confirms that pt is from [facility] with Hospice and the plan is for pt to return to [facility] with Hospice. Plan: Return to [facility] with Hospice Tasha Arias MSW, FISH CLEANER MACHINE TENDER
[2019-09-20] MEDS: Pantoprazole Sodium 20 MG Tablet PO (10:41)
[2019-09-20] MEDS: Aspirin E.C. 81 MG Tablet PO (10:42)
[2019-09-20] MEDS: busPIRone 5 MG Tablet PO ×2 (10:42→22:11)
[2019-09-20] MEDS: Escitalopram Oxalate 20 MG Tablet PO (10:42)
--- NOTE | 2019-09-20 11:28 | NURSING ---
Pt's carlson emptied. 100 cc. Robin blood noted.
--- NOTE | 2019-09-20 12:36 | CASEMGMT ---
Addendum entered by Tasha Arias 09/20/19 12:54: LOTUS placed a call to [facility] and spoke with RN Carolina. Carolina states that she will need clinicals faxed and will call pt's daughter to arrange meeting time again to sign with Hospice. LOTUS faxed updated clinicals to [facility]. Original Note: Social Work Note Pt is not ready for discharge today. LOTUS faxed updated clinicals to W. Plan: WVM with Hospice when medically cleared Tasha Arias DATA SUPPORT ANALYST, FINANCIAL REPORTING DIRECTOR
[2019-09-20 13:33] VITALS: BP 105/63; PULSE 68; RESP 20; TEMP 36.5; O2SAT 92
[2019-09-20 22:04] VITALS: BP 121/57; PULSE 68; RESP 18; TEMP 36.8; O2SAT 93
[2019-09-20 22:10] VITALS: PULSE 68; RESP 18; O2SAT 93
[2019-09-20] MEDS: ARIPiprazole 5 MG Tablet PO (22:11)
[2019-09-21 04:18] VITALS: BP 104/46; PULSE 63; RESP 16; TEMP 36.6; O2SAT 92
--- NOTE | 2019-09-21 06:00 | EKG12_ITS ---
Test Reason : AM EKG Blood Pressure : / mmHG Vent. Rate : 064 BPM Atrial Rate : 064 BPM P-R Int : 196 ms QRS Dur : 076 ms QT Int : 468 ms P-R-T Axes : 053 -22 000 degrees QTc Int : 482 ms Normal sinus rhythm Nonspecific T wave abnormality Prolonged QT Abnormal ECG Confirmed by DUC NERI, YVROSE ([id number]), loan expeditor BOBBY IBARRA ([id number]) on 09/25/2019 1:52:17 PM Referred By: DR HARPER Confirmed By:YVROSE XAVIER MD
[2019-09-21 06:03] LABS: Hematocrit 38.4 % (37-47); Hemoglobin 12.2 g/dL (12.0-15.0)
--- NOTE | 2019-09-21 08:46 | PN_ITS ---
Patient Problems: Active and Suspected Problems Gross hematuria (Acute) Subjective: Chief complaint: Follow-up after admission for gross hematuria. Patient seen and examined. No acute events overnight. She denies any significant complaints. Urine is becoming more dark and draped today, hematuria is back. Planning for cystoscopy today. Vital signs are stable. - Physical Exam Vitals/I&O's: Vital Signs Temp Pulse Resp BP Pulse Ox 97.9 F 63 16 104/46 L 92 09/21/19 04:18 09/21/19 04:18 09/21/19 04:18 09/21/19 04:18 09/21/19 04:18 Oxygen Flow Rate (L/min) 1 Oxygen Delivery Method Room Air Weight: 184 lb 8.43 oz Body Mass Index (BMI) 31.6 Finger Stick Blood Glucose 157 Intake and Output for Last 24 Hours 09/19/19 09/20/19 09/21/19 23:59 23:59 23:59 Intake Total 300 / 300 900 / 1000 100 / 100 Output Total 2465 / 2465 3800 / 4050 250 / 250 Balance -2165 / -2165 -2900 / -3050 -150 / -150 General: Alert, Oriented x3, Cooperative, No apparent distress HEENT: Atraumatic, PERRLA, EOMI, Normocephalic Oral: Moist Mucosa, No Gingival or Mucosal Lesions/ Ulcerations Neck: Supple, No JVD, Negative Carotid Bruits, Trachea Midline, Thyroid Normal Size and Texture Lungs: Clear to auscultation, Normal air movement, No rhonchi, No wheeze, No rales, Diminished Cardiovascular: Regular rate, Regular Rhythm, Normal S1, Normal S2, PMI Normal Abdomen: Bowel Sounds Present, Soft, Non Tender, Non-Distended, No Hepato-spleno megaly Extremities: No clubbing, No cyanosis, No edema Skin: No rashes, No breakdown Lymphatic: No Cervical, Supraclavicular, or Inguinal Adenopathy Neurological: Cranial nerves II-XII grossly intact, - - Minimal right-sided hemiparesis. Psych/Mental Status: Normal Affect, Appropriate Laboratory Results 09/21/19 05:45: Hgb 12.2, Hct 38.4 Current Medications Acetaminophen (Tylenol) 650 mg PO Q4H PRN PRN PRN Reason: Mild Pain (0-3/10)/Headache Aripiprazole (Abilify) 5 mg PO QHS [facility] Last Admin: 09/20/19 22:11 Dose: 5 mg Documented by: Aspirin (Ecotrin) 81 mg PO DAILY@0800 [facility] Last Admin: 09/20/19 10:42 Dose: 81 mg Documented by: Buspirone HCl (Buspar) 5 mg PO BID [facility] Last Admin: 09/20/19 22:11 Dose: 5 mg Documented by: Dextrose (D50w Syringe) 0 gm IV X1 PRN; Protocol PRN Reason: Hypoglycemia Escitalopram Oxalate (Lexapro) 20 mg PO DAILY [facility] Last Admin: 09/20/19 10:42 Dose: 20 mg Documented by: Glucagon () 1 mg IM .X1 PRN PRN Reason: Hypoglycemia Sodium Chloride () 250 mls @ 15 mls/hr IV .[id number] PRN PRN Reason: Saline Flush Ondansetron HCl (Zofran) 4 mg IV Q8H PRN PRN PRN Reason: NAUSEA/VOMITING Pantoprazole Sodium (Protonix) 20 mg PO DAILY [facility] Last Admin: 09/20/19 10:41 Dose: 20 mg Documented by: Sodium Chloride () 10 - 40 ml IV UD PRN PRN Reason: SALINE FLUSH Medical Necessity - Tobacco Use Smoking Status: Former smoker Assessment/Plan All Active Problems Gross hematuria (Acute) This is a 79 years old female patient admitted because of gross hematuria for evaluation. #1 gross hematuria: Unclear etiology. After stopping CBI, hematuria started back. Today, urine is pink, dark. Patient denies any complaints. Her vital signs are stable. Hemoglobin and hematocrit are stable. Patient was on Plavix in addition to aspirin, Plavix held. Neurology on the case. Plan for cystoscopy today. Plan: Repeat CBC and BMP tomorrow morning. #2 anemia: This is acute secondary to hematuria. On admission, hemoglobin was 13 and it came down to 11.8 g/dL yesterday and today, hemoglobin is 12.2 g/dL. Plan as above. #3 hypertension: Blood pressure stable, currently she is not on any medications. #4 history of stroke: With resultant minimal right-sided hemiparesis. Continue aspirin, Plavix held. #5 hyperlipidemia: She is not on statins as well. #6 depression: Continue Lexapro. #7 GERD: Continue PPI. #8 DVT prophylaxis: SCDs. This note was generated with [employer] software. It may contain incorrect words, spelling, and punctuation that were not noted in checking the note before signing. Code Visit Inpatient E&M: 87082 Subs Hosp L2
[2019-09-21 09:34] VITALS: BP 113/74; PULSE 65; RESP 20; TEMP 36.7; O2SAT 96
--- NOTE | 2019-09-21 10:29 | CASEMGMT ---
Social Work Note Pt is having procedure today and will discharge to [facility] with Hospice tomorrow. LOTUS placed a call to [facility] and spoke with Ailyn and updated her that pt will be discharged tomorrow. Ailyn states Toya with [facility] will be at [facility] around 2:00pm to sign paperwork for Hospice. LOTUS faxed updated clinicals to [facility] and wrote on fax coversheet that pt will be discharged tomorrow. Green sheet and transportation form on pt's chart. Plan: [facility] tomorrow with Hospice Tasha Arias STATION BAGGAGE AGENT, CONCRETE FINISHER
--- NOTE | 2019-09-21 10:31 | NURSING ---
spoke with daughter, Aminah about when dr would be in talk about procedure. Daughter confirmed she would be in before hand.
--- NOTE | 2019-09-21 11:55 | PCM.CONS.B ---
- Consult Date of Consult: 09/21/19 - Reason for Consult 79-year-old female who presented to the hospital with gross hematuria she was on blood thinners for history of a stroke she is a hospice patient. Today I spoke to the patient and her daughter. The patient resides at a correction and is hospice care because of her history of multiple strokes and cannot take care of herself and poor condition. She did present with gross hematuria. Hematuria is cleared up with a stopped bleeding irrigated the catheter myself today and there is no clots whatsoever the urine is crystal clear we can remove the catheter and discharge the patient back to her facility. The family does not want a diagnostic cystoscopy to figure out what caused the bleeding I did explain to the family is possible the bleeding may come back. It is possible she has a bladder tumor bladder cancer or other malignancy the cause of bleeding. Again the family does not want any procedures unless is necessary we will see what happens he can be discharged home certainly if she starts bleeding again then I would insist on doing a cystoscopy. Call me with questions
--- NOTE | 2019-09-21 12:13 | PCM.TXEXTCAR ---
- Diet 09/21/19 11:59 Diet: Regular Diet Is pt able to select menu?: Yes - Routine Orders/Code Status Code Status: DNRCC-A - Suggestions for Active Care Change Position every (hours): 3 Hours to sit in a chair: 2 Times a day to sit in chair: 3 - Therapies Weight Bearing: Weight bearing as tolerated Physical Therapy: Eval and Treat Occupational Therapy: Eval and Treat Speech Therapy: Eval and Treat - Allergies/Procedures Done in Hospital Allergies/Adverse Reactions: Allergies latex Allergy (Verified 09/19/19 05:02) Swelling - Type of Care/Length of Stay Estimated LOS: Convalescent Care Less Than 30 days Type of Care Needed: Skilled Rehab Potential: Fair Prognosis: Fair - Additional Orders/Day of Discharge Additional Orders: Please hold Plavix for 10 days and then patient cannot restart taking it. H&P will serve as current which was dated: 09/19/19 Day of Discharge: 09/21/19 - Dietary and Speech Recommendations Dietitian Recommendations/Changes: As medically able, rec JEREMIE to liberal Regular - Follow Up Care Primary Care Physician: Juan Broussard Chi, MD [COURTESY STAFF PHYSICIAN] - Please follow up with your Primary Care Physician in: 1-2 week.
[2019-09-21] MEDS: Escitalopram Oxalate 20 MG Tablet PO (13:10)
[2019-09-21] MEDS: Aspirin E.C. 81 MG Tablet PO (13:10)
[2019-09-21] MEDS: Pantoprazole Sodium 20 MG Tablet PO (13:10)
[2019-09-21] MEDS: busPIRone 5 MG Tablet PO (13:10)
--- NOTE | 2019-09-21 13:22 | CASEMGMT ---
Pt is ready to return to [facility] today. LOTUS faxed discharge instructions to [facility] and [facility]. Daughter met hospice just a short time ago and re-signed papers. LOTUS set up a 3pm ambulance /[facility]. LOTUS let RNTonja at [facility], Carolina at Hospice, and daughter all know time of transport. No further needs, pt to [facility] today and will again be on hospice when there. JORDAN Nichols
[2019-09-21 14:01] VITALS: BP 98/55; PULSE 88; RESP 18; TEMP 36.4; O2SAT 93
--- NOTE | 2019-09-21 14:26 | NURSING ---
REPORT CALLED TO VIPUL OVIEDO AT [facility].
--- NOTE | 2019-09-21 15:34 | CASEMGMT ---
Social Work Note SW did place a call to pt's CM Hyacinth Clinton and left her a message that pt was discharged back to [facility] with Hospice today. Tasha Arias INCOME TAX ADJUSTER, DRAGLINE OILER
--- NOTE | 2019-09-21 15:45 | DS.PCM_ITS ---
Discharge Date and Diagnosis Date of Admission: 09/19/19 Date of Discharge: 09/21/19 - Primary Discharge Diagnosis #1 gross hematuria, unclear etiology. #2 acute blood loss anemia, no blood transfusion required. - Secondary Discharge Diagnosis Chronic Problems History of CVA (cerebrovascular accident) (Chronic) HTN (hypertension) (Chronic) HLD (hyperlipidemia) (Chronic) GERD (gastroesophageal reflux disease) (Chronic) Hospital Course and Treatment Dr. Alvarez, urology. Operations: None Procedures: - - Continuous bladder irrigation. Summary of Care Provided: Patient seen and examined on day of discharge. Initial plan was to go for cystoscopy. The family does not want the patient to go for diagnostic cystoscopy. Urine started to clear up. Dr. Alvarez explained to the family that the bleeding may come back as we do not know what is causing this bleeding and again they do not want to do any procedures. CBI discontinued and Hunt cathet er taken out. Her vital signs were stable. The patient is a 79 year old F patient presented to the emergency room because of gross hematuria and she was admitted for evaluation. Hunt catheter was inserted and continuous bladder irrigation initiated. Initially, urine started to clear up but later, started to become dark again and then started to clear up again. On admission, hemoglobin was 13 g/dL, came down to 11.8 g/dL and then went up to 12.2 g/dL. There was no indication for blood transfusion. On admission, patient was on aspirin and Plavix for history of stroke and Plavix was held. Her pro time and INR were normal. Her other routine blood work was unremarkable. [facility] Urology consulted and recommended diagnostic cystoscopy. Patient's family was questioning if the procedure is necessary. Initial plan was to go for cystoscopy later, family decided not to do any procedures including cystoscopy. Dr. Alvarez explained to the family that this bleeding may come back and malignancy is in the differential diagnosis and family does not want to do anymore diagnostic testing at this point. Hunt catheter taken out and CBI discontinued. Patient discharged home in a stable medical condition, initiated back to hospice, discharged to skilled facility in a stable condition, Plavix held for now, continued on aspirin, recommended to resume Coumadin 10 days, follow-up with PCP in 1 to 2 weeks. - Physical Exam Vitals/I&O's: Vital Signs Temp Pulse Resp BP Pulse Ox 97.5 F L 88 18 98/55 L 93 09/21/19 14:01 09/21/19 14:01 09/21/19 14:01 09/21/19 14:01 09/21/19 14:01 Oxygen Flow Rate (L/min) 1 Oxygen Delivery Method Room Air Weight: 184 lb 8.43 oz Body Mass Index (BMI) 31.6 Finger Stick Blood Glucose 157 Intake and Output for Last 24 Hours 09/19/19 09/20/19 09/21/19 23:59 23:59 23:59 Intake Total 300 / 300 900 / 1000 100 / 100 Output Total 2465 / 2465 3800 / 4050 250 / 250 Balance -2165 / -2165 -2900 / -3050 -150 / -150 General: Alert, Oriented x3, Cooperative, No apparent distress HEENT: Atraumatic, PERRLA, EOMI, Normocephalic Oral: Moist Mucosa, No Gingival or Mucosal Lesions/ Ulcerations Neck: Supple, No JVD, Negative Carotid Bruits, Trachea Midline, Thyroid Normal Size and Texture Lungs: Clear to auscultation, No rhonchi, No wheeze, No rales, Diminished Cardiovascular: Regular rate, Regular Rhythm, Normal S1, Normal S2 Abdomen: Bowel Sounds Present, Soft, Non Tender, Non-Distended, No Hepato- splenomegaly Extremities: No clubbing, No cyanosis, No edema Skin: No rashes, No breakdown Lymphatic: No Cervical, Supraclavicular, or Inguinal Adenopathy Neurological: Cranial nerves II-XII grossly intact, - - Minimal right-sided hemiparesis. Psych/Mental Status: Normal Affect, Appropriate Laboratory Results 09/21/19 05:45: Hgb 12.2, Hct 38.4 Home Medications: Medications to take at Discharge Aspirin E.C. [Ecotrin] 81 mg PO DAILY@0800 tablet 06/26/18 Aripiprazole 5 mg PO QHS 08/17/19 Buspirone HCl 5 mg PO BID 08/17/19 Escitalopram Oxalate [Lexapro] 20 mg PO DAILY 08/17/19 Omeprazole 20 mg PO DAILY 08/17/19 Acetaminophen [Tylenol Tablet] 650 mg PO Q4H PRN PRN 09/19/19 Primary Care Physician: Juan Broussard Chi, MD [COURTESY STAFF PHYSICIAN] - Please follow up with your Primary Care Physician in: 1-2 week. Disposition: Half-Way facility Minutes spent on discharge:: 28 Patient Condition:: Stable Medical Necessity - Tobacco Use Smoking Status: Former smoker Meaningful Use Info Meaningful Use Diagnoses (Choose all that apply): None applicable Code Visit Inpatient E&M: 63682 Disch Hosp
== END 2019-09-21 15:05 | disposition skilled nursing facility (03) | DRG 695 ==
LOC: ED 06:06 → MS3 06:23
PROVIDERS: Emergency Provider Emergency Medicine; Family Provider Family Medicine; PCP Family Medicine; Visit Provider Hospitalist
DX: R31.0 Gross hematuria (principal); I63.9 Cerebral infarction, unspecified; D62 Acute posthemorrhagic anemia; I69.351 Hemiplegia and hemiparesis following cerebral infarction affecting right dominant side; I10 Essential (primary) hypertension; E78.5 Hyperlipidemia, unspecified; K21.9 Gastro-esophageal reflux disease without esophagitis; Z90.710 Acquired absence of both cervix and uterus; Z79.82 Long term (current) use of aspirin; Z79.02 Long term (current) use of antithrombotics/antiplatelets; Z66 Do not resuscitate; Z79.899 Other long term (current) drug therapy; Z87.891 Personal history of nicotine dependence; F32.9 Major depressive disorder, single episode, unspecified
CPT/HCPCS: 36415; 51702; 80053; 85014; 85018; 85025; 85610; 93005; 97162; 97166; 97530; 99285; A4216